=== PATIENT | male | born 1995 | race Caucasian/White ===

== ENCOUNTER 2024-11-15 10:21 | Outpatient (CLI) | payer OTHER, SELFPAY ==
--- NOTE | ~2024-11-15 | PE_ITS ---
EXAMINATION: PET skull to mid thigh DATE: 11/15/2024 12:27 INDICATION: Rectal cancer. TECHNIQUE: Blood glucose level was 87 mg/dL. 10.803 mCi of 18-fluorodeoxyglucose (18-FDG) was adminis tered i.v. Low dose computed tomography (CT) images were acquired from the base of the brain to the p roximal thighs for attenuation correction and anatomic localization. Automated exposure control was e mployed. Dose-length product (DLP) was 1049 mGy-cm. Positron emission tomography (PET) images were ac quired in the same distribution. COMPARISON: None FINDINGS: Head/neck: There are no pathologically enlarged lymph nodes. Chest: There is a nodule in left lung upper lobe with central calcifications without increased activi ty, consistent with old granulomatous disease. No pleural effusion. The heart size is normal. No kalpesh cardial effusion. There is a right internal jugular port with tip in superior vena cava. There is matteo ateral gynecomastia. Abdomen/pelvis/proximal thighs: The liver, gallbladder, spleen, pancreas, and adrenal glands are norm al. There is a 2 mm stone in right kidney. There is mild left hydronephrosis and hydroureter. There i s an end ileostomy on the right. There are no pathologically enlarged lymph nodes. There is no free i ntraperitoneal fluid. There is fat stranding in the presacral region with maximum SUV of 3.7. There i s ankylosis of the sacroiliac joints. IMPRESSION: 1. Fat stranding and mildly increased activity in the presacral region, which may be postsurgical inf lammation/scarring. Metastatic disease cannot be excluded. 2. Mild left hydronephrosis and hydroureter to the level of the presacral fat stranding. Reviewed, dictated and finalized at location [facility] IMPRESSION: 1. Fat stranding and mildly increased activity in the presacral region, which m ay be postsurgical inflammation/scarring. Metastatic disease cannot be excluded . 2. Mild left hydronephrosis and hydroureter to the level of the presacral fat s tranding.
[2024-11-15 10:43] LABS: Glucose Point of Care 87 mg/dl (65-105)
== END 2024-11-15 10:22 | disposition home or self-care (01) ==
LOC: ANHIMG 10:24
PROVIDERS: Visit Provider Internal Medicine Medical Oncology
DX: R93.5 Abnormal findings on diagnostic imaging of other abdominal regions, including retroperitoneum (principal); N13.39 Other hydronephrosis; N13.4 Hydroureter; C20 Malignant neoplasm of rectum
CPT/HCPCS: 78815; A9552

== ENCOUNTER 2025-02-21 08:53 | Outpatient (CLI) | payer OTHER, SELFPAY ==
--- NOTE | ~2025-02-21 | PE_ITS ---
EXAMINATION: PET skull to mid thigh DATE: 02/21/2025 12:53 INDICATION: Rectal cancer TECHNIQUE: Blood glucose level was 87 mg/dL. 8.836 mCi of 18-fluorodeoxyglucose (18-FDG) was administ ered i.v. Low dose computed tomography (CT) images were acquired from the base of the brain to the pr oximal thighs for attenuation correction and anatomic localization. Positron emission tomography (PET ) images were acquired in the same distribution beginning 65 minutes after injection. Images includin g fused PET/CT images were reconstructed in axial, coronal, and sagittal planes. Automated exposure c ontrol technique was employed. The dose-length product was 737.95mGy-cm. COMPARISON: 11/15/2024 FINDINGS: Head/neck: There is symmetric increased activity in the nares, oral cavity, palatine tonsils, laryngeal muscles and ocular muscles without CT correlate, likely physiologic. No pathologically enlarged cervical lymp hadenopathy or suspicious foci of increased FDG uptake in the visualized head or neck. Chest: Right internal jugular central venous port catheter with distal tip at the midsuperior vena cava. Aga in seen is a centrally calcified left upper lobe nodule consistent with sequela of old granulomatous disease. No suspicious pulmonary nodule, pneumonia, pulmonary edema or pleural effusion. Heart size i s normal. No pericardial effusion. Thoracic aorta is normal in caliber. No pathologically enlarged or FDG avid thoracic lymphadenopathy. Mild bilateral gynecomastia. Abdomen/pelvis/proximal thighs: Again seen are postoperative change of prior colectomy with right abdominal and ileostomy. Physiologi c renal accumulation and excretion of FDG activity in the right kidney and in the bladder. There is a symmetric decreased renal uptake at the left kidney with interval progression of moderate left hydrou reteronephrosis without evident excreted activity in the left renal collecting system or ureter. Ther e is a transition point in the left ureter and the posterior left hemipelvis where the ureter extends to a 4.5 x 3.0 cm FDG avid spiculated mass at the rectal fossa with maximal SUV of 15.8. Previously mass measured approximately 3.5 x 2.5 cm with maximal SUV of 6.2. Normal degree and heterogenous kim barbara of increased uptake throughout the liver without radiologic correlate or dominant FDG avid lesion . The gallbladder, pancreas, spleen and bilateral adrenal glands are normal. Mild uptake scattered th roughout the remaining bowels without radiologic correlate, also likely physiologic. No other abnorma l foci of increased FDG uptake or pathologically enlarged lymphadenopathy in the abdomen, pelvis or p roximal thighs. Musculoskeletal: Ankylosis of the bilateral sacroiliac joints. Couple small bone islands at the left femoral head. No suspicious lytic, blastic or abnormally FDG avid bone lesions. There are multiple tiny foci of mild u ptake without radiologic correlate located along the skin surface of the chest, back, buttocks and pr oximal thighs likely related to skin contamination. IMPRESSION: 1. Status post colectomy with right abdominal and ileostomy for reported rectal cancer. 2. Increasing FDG activity associated with an enlarging 4.5 x 2.0 cm spiculated mass at the rectal fo ssa/presacral space which is suspicious for progression of locally recurrent disease. 3. Worsening now moderate left hydroureteronephrosis with transition point in the region of the previ ously noted pelvic mass suggesting secondary obstruction. This appears physiologic significant with a symmetrically decreased FDG uptake and excretion from the left kidney. Reviewed, dictated and finalized at location A. IMPRESSION: 1. Status post colectomy with right abdominal and ileostomy for reported rectal cancer. 2. Increasing FDG activity associated with an enlarging 4.5 x 2.0 cm spiculated mass at the rectal fossa/presacral space which is suspicious for progression o f locally recurrent disease. 3. Worsening now moderate left hydroureteronephrosis with transition point in t he region of the previously noted pelvic mass suggesting secondary obstruction. This appears physiologic significant with asymmetrically decreased FDG uptake and excretion from the left kidney.
--- OUTSIDE RECORDS SUMMARY | 2025-02-21 09:31 | XMS_ITS | Encounter Summary ---
Author Organization [facility] Address [address] [place] [address] Care Team Providers Care Market Risk Specialist Name Role Phone Unavailable Primary Care Provider Unavailabl e Reason for Visit * Reason Comments Follow Up F/U rectal cancer Encounter Details Date Type Department Care Team (Late st Contact Info) Description 02/20/2025 1:15 PM CDT Office Visit [facility] Surgical Spec [place] [address] [place] [address] Shannan Soler MD [address] [place] [address] Rectal cancer (CMS/HCC) (Primary Dx) Social History Tobacco Use Types Packs/Day Years Used Date Smoking Tobacco: Never Smokeless Tobacco: Never Alcohol Use Standard Drinks/Week Comments Not Currently 0 (1 standard drink = 0.6 oz pur e alcohol) Utility Needs Answer Date Recorded In the past 12 months has [employer], [employer], oil, or water [employer] threatened to shut off services in your home? Patient declined 07/05/2024 Feeling Safe Answer Date Recorded Within the last year, have y ou been afraid of your partner or ex-partner? No 07/05/2024 Within the last year, have y ou been humiliated or emotionally abused in other ways by your partner or ex-partner? No Within the last year, have y ou been kicked, hit, slapped, or otherwise physically hurt by your partner or ex-partner? No 07/05/2024 Within the last year, have y ou been raped or forced to have any kind of sexual activity by your partner or ex-partner? No 07/05/2024 Social Connections Answer Date Recorded In a typical week, how many times do you talk on the telephone with family, friends, or neighbors? More than three times a week 07/05/2024 How often do you get togethe r with friends or relatives? Three times a week 07/05/2024 How often do you attend chur or samaritan services? Never 07/05/2024 Do you belong to any clubs o r organizations such as confucianism groups, unions, fraternal or athletic groups, or school groups? No 07/05/2024 How often do you attend meet ings of the clubs or organizations you belong to? Never 07/05/2024 Marital Status Not on file 07/05/2024 Financial Resource Strain Answer Date R ecorded How hard is it for you to pa y for the very basics like food, housing, medical care, and heating? Not hard at all 07/05/2024 Food Insecurity Answer Date Recorded In the past 12 months, have you worried that your food would run out before you had money to buy more? Patient declined 2023 In the past 12 months, did y ou run out of food and didn't have money to buy more? Patient declined 07/05/2024 Transportation Needs Answer Date Record ed In the past 12 months, has l ack of transportation kept you from medical appointments or from getting medications? Patient declined 07/05/2024 In the past 12 months, has l ack of transportation kept you from meetings, work, or from getting things needed for daily living? Patient declined 07/05/2024 Housing Stability Answer Date Recorded In the last 12 months, was t here a time when you were not able to pay the mortgage or rent on time? No 07/05/2024 Number of Times Moved in the Last Year Not on fi le 07/05/2024 At any time in the past 12 m [facility], were you homeless or living in a intermediate (including now)? No 07/05/2024 Feeling Safe Answer Date Recorded Are you in a relationship wi th someone who hurts you emotionally and/or physically? Patient unable to answer 09/01/2024 Food Insecurity Answer Date Recorded Social/Environmental Concerns No concerns Transportation Needs Answer Date Record ed Social/Environmental Concerns No concerns Housing Stability Answer Date Recorded Social/Environmental Concerns No concerns Utility Needs Answer Date Recorded Social/Environmental Concerns No concerns Sex and Gender Information Value Date Recorded Sex Assigned at Not on file Legal Sex Male 10:21 PM CDT Gender Identity Not on file Sexual Orientation Not on file documented as of this encounter Last Filed Vital Signs Vital Sign Reading Time Taken Comments Blood Pressure 140/100 02/20/2025 1:23 PM CDT Pulse - - Temperature - - Respiratory Rate - - Oxygen Saturation - - Inhaled Oxygen Concentration - - Weight 94 kg (207 lb 3.2 oz) 02/20/2025 1:23 PM CDT Height 185.4 cm (6' 1 ) 02/20/2025 1:23 PM CDT Body Mass Index 27.34 02/20/2025 1:23 PM CDT documented in this encounter Progress Notes * Shannan Soler MD - 02/20/2025 1:15 PM CDT Images from the original note were not included. Chief Complaint Patient presents with Follow Up F/U rectal cancer : History of Present Illness: Severiano Ny is a 30 y.o. male is S/P open completion proctectomy with end ileostomy on 07/28/24 in the setting of obstructing perforated rectal cancer from Crohn's disease. The patient hasno complaint of unusual pain at the incisions, and has reported no drainage from the incisions. Appetite and ostomy output are normal. No fevers or chills reported. No leakage from his perineal wound. He has noted intermittent pain where his rectum used to be. This is unrelated to sitting. He has gained 40# since surgery. He has been getting FOLFOX/Avastin chemo with Dr. Reynolds. Pet 11/15/24 at [facility]: No back pain or difficulty urinating. Creatinine normal (0.9) on 11/14/24. He reports normal erections and feels that he is having an orgasm but still has not noted ejaculatecw retrograde ejaculation. Seen by Dr. Torres, cysto negative, expectant management. Unchanged. He saw Dr. Marks who will wait until after chemotherapy to perform ileoscopy. [facility] ctDNA 09/26/24 <0.25% Physical Examination: BP (!) 140/100 (BP Location: Left arm, Patient Position (BP): Sitting, BP Cuff Size: Adult) Ht 6'1 (1.854 m) Wt 94 kg (207 lb 3.2 oz) BMI 27.34 kg/m?? Gen: alert, oriented, NAD. Looks so much better, no longer cachectic. CV: rrr Lungs: non-labored respirations Abdomen- Incisions are healed normally without sign of infection, erythema or subcutaneous fluid. Soft. Non-tender. BS+. No herniations. Ostomy pink, productive of thick loose stool. Perineum: well healed, no drainage. No palpable masses in his perineum. Impression: Doing well following completion proctectomy with end ileostomy. CT showed possible lung mets, pet showed pelvic mary carmen mets initially which resolved by the repeat 11/2024 PET and no pulmonary dz. Pelvic pain concerning for cancer recurrence. Plan: Repeat PET schedule tomorrow at [place]. F/u with Dr. Marks for Crohn's maintenance. F/u with Dr. Reynolds for continued chemotherapy. Met with radiation therapy as well; Dr. Reynolds plans to hold on rads for now unless PET shows worsening disease. Return visit in 3 month(s) documented in this encounter Plan of Treatment Upcoming Encounters Date Type Department Care Team (Late st Contact Info) Description 03/06/2025 9:00 AM CDT Office Visit [facility] Oncology and Hematology - [place] [address] [place] [address] Jose Reynolds MD [address] [place] [address] 05/22/2025 1:15 PM CDT Office Visit [facility] Surgical Spec [place] [address] [place] [address] Shannan Soler MD [address] [facility] [address] [place] [id number] documented as of this encounter Visit Diagnoses Diagnosis Rectal cancer (CMS/HCC)- Primary Malignant neoplasm of rectum documented in this encounter
--- OUTSIDE RECORDS SUMMARY | 2025-02-21 09:31 | XMS_ITS | Data Portability ---
Author Organization [place] - [facility], [facility] Address [address] [place] [id number] Assessment No assessment recorded. Plan of Treatment Reminders Order Date Submit Date Provider Last Modified By Organization Details Last Modified Time Details Appointments None recorded. Lab calprotecti n, stool [email or web address] [place] [address] Lab, [address] [place] [address], [address], 4 17:11:36 CBC w/ auto diff 2023 024 [facility] Lab, [address] [place] [address], [address], 4 12:18:13 CMP, serum or plasma 2023 024 [facility] Lab, [address] [place] [address], [address], 4 12:12:54 rapid flu (A+B) 2023 024 [email or web address] 8 [facility], [address] [place] [address], [address], 4 16:29:26 rapid SARS CoV + SARS CoV 2 Ag, QL IA, respiratory specimen 2023 024 [email or web address] 8 [facility], [address] [place] [address], [phone], 4 16:29:51 calprotecti n, stool 2022 023 [facility] Lab, [address] [place] [address], [address], 3 00:12:10 CBC w/ auto diff 2022 023 [facility] Lab, [address] [place] [address], [address], 14:39:54 CMP, serum or plasma 2022 023 [facility] Lab, [address] [place] [address], [address], 3 14:46:54 C-reactive protein, quantitativ e, serum or plasma [address] Lab, [address] [place] [address], [address], 16:35:17 vitamin D, 25-hydroxy, total, serum 2022 023 [facility] Lab, [address] [place] [address], [address], 3 08:17:17 vitamin B12 + folate, serum or blood [address] Lab, [address] [place] [address], [address], 16:36:18 Referral None recorded. Procedures None recorded. Surgeries None recorded. Imaging None recorded. Medication Orders diphenoxyla te-atropine 2.5 mg-0.025 mg tablet 2023 024 [email or web address] [id number] [place] [address] [place], [address], 4 19:07:04 pantoprazol e 40 mg tablet,lita yed release 2023 024 [facility] [address] [place] [address] [place], [address], 4 10:50:26 Stelara 90 mg/mL subcutaneou s syringe 2022 023 [email or web address] [facility], [address], [place], [address], 4 14:26:13 Patient TargetsNo targets recorded. Patient Instructions Encounter Date Encounter Id Patient Instructions Last Modified By Organization Details Last Modified Time 09/29/[id number] PT WITH IBD-CD X 13 YRS . HE IS S/P TOTAL COLECTOMY WITH ILEORECTAL ANASTAMOSIS. PT IS ON STELARA. X 6 YRS . LAST DOSE WAS X 8 WEEKS . NEED OLD RECORDS . RECOMMEND INFLAMMATORY MARKERS. RESUME STELARA 90 MG SQ EVERY 8 WEEKS . [email or web address] Not available 09/29/2023 13:54:22 11/10/2023 [id number] influenza (flu): care instructions [email or web address] Not available 11/10/2023 16:30:19 11/10/2023 [id number] LOW RESIDUE DIET [email or web address] Not availa ble 11/10/2023 15:59:35 PT WITH ACTIVE IBD-CD INFECTION . CONTINUE SKYRIZI FOR NOW . GO TO [facility] CLIN[facility] TO BE EVALUATED FOR COVID . PT WAS ADVISED IF HE HAS COVID . SKYRIZI WOULD BE DELAYED . F/U IN 3 MTHS. [email or web address] Not available 11/10/2023 16:00:59 03/29/2024 [id number] PT WITH IBD-CD O F BOTH LARGE AND SMALL INTESTINE. PT IS ON SKYRIZI. STOOL CALPROTECTIN WAS 468 IN DECEMBER AFTER HIS INDUCTION OF SKYRIZI. RECOMMEND RPEAT THIS NOW. IF STILL HIGH , MAY HAVE TO CHANGE TO RINVOQ. IT NOEMAL , THEN DIARRHEA IS B/C F HIS ANATOMY. PT WOULD BENEFIT FROM IMODIUM 2 TABS BID NEEDED TO SLOW HIM DOWN. FOR ABD PAIN TRY PANTOPRAZOLE 40 MG /D. F/U IN 2 WEEKS . [email or web address] Not available 03/29/2024 10:49:41 Reason for Referral None Reported. Results Created Date Observation Date Name Description Value Unit Range Abnormal Flag Note LastModifiedBy Organization Detail LastModifiedTime 11/09/29/2023 CBC WITH AUTOM ATED DIFF WBC 6.7 10 4.2-9. 1 Not Available [facility] - Lab [address] [place] [address], [address], 09/29/2023 14:39:54 09/29/2009/29/2023 CBC WITH AUTOM ATED DIFF RBC 5.42 10 4.60-6 .08 Not Available [facility] - Lab [address] [place] [address], [address], 09/29/2023 14:39:54 09/29/2009/29/2023 CBC WITH AUTOM ATED DIFF HGB 14.2 g/dL 13.7-1 7.5 Not Available [facility] - Lab [address] [place] [address], [address], 09/29/2023 14:39:54 09/29/20 23 09/29/2023 CBC WITH AUTOM ATED DIFF HCT 44.9 % 40.1-5 1.0 Not Available [facility] Lab [address] [place] [address], 968[address], 09/29/2023 14:39:54 09/29/20 23 09/29/2023 CBC WITH AUTOM ATED DIFF MCV 82.8 fL 80.0-9 7.0 Not Available [facility] Lab [address] [place] [address], 485[address], 09/29/2023 14:39:54 09/29/2009/29/2023 CBC WITH AUTOM ATED DIFF MCH 26.2 pg 29.0-3 4.5 low Not Available [facility] Lab [address] [place] [address], 72098, 09/29/2023 14:39:54 09/29/20 23 09/29/2023 CBC WITH AUTOM ATED DIFF MCHC 31.6 g/dL 32.5-3 5.5 low Not Available [facility] - Lab [address] [place] [address], [address]98[address], 09/29/2023 14:39:54 09/29/20 23 09/29/2023 CBC WITH AUTOM ATED DIFF RDW 13.6 11.5-1 4.5 Not Available [facility] Lab [address] [place] [address], 575[address], 09/29/2023 14:39:54 09/29/2009/29/2023 CBC WITH AUTOM ATED DIFF platelet 291 10 160-34 0 Not Available [facility] Lab [address] [place] [address], 80[address], 09/29/2023 14:39:54 09/29/2009/29/2023 CBC WITH AUTOM ATED DIFF MPV 8.40 fL 9.0-12 .4 low Not Available [facility] Lab [address] [place] [address], [address], 09/29/2023 14:39:54 09/29/2009/29/2023 CBC WITH AUTOM ATED DIFF uri% 67.5 % 34.0-6 7.9 Not Available [facility] [address] [place] [address], 89449, 09/29/2023 14:39:54 09/29/2009/29/2023 CBC WITH AUTOM ATED DIFF lym% 22.8 % 22-53 Not Available [facility] [address] [place] [address], 76897, 09/29/2023 14:39:54 09/29/2009/29/2023 CBC WITH AUTOM ATED DIFF mon% 4.20 % 5-12 low Not Available [facility] Lab [address] [place] [address], 28158, 09/29/2023 14:39:54 09/29/20 23 09/29/2023 CBC WITH AUTOM ATED DIFF eos% 5.10 % 0-7 Not Available [facility] [address] [place] [address], 03557, 09/29/2023 14:39:54 09/29/20 23 09/29/2023 CBC WITH AUTOM ATED DIFF bas% 0.30 % 0-2 Not Available [facility] Lab [address] [place] [address] [place], [address], 09/29/2023 14:39:54 09/29/20 23 09/29/2023 CBC WITH AUTOM ATED DIFF Ig% 0.1 0-1.0 Not Available [address], [place], [address], 09/29/2023 14:39:54 09/29/20 23 09/29/2023 CBC WITH AUTOM ATED DIFF uri# 4.54 10 1.5-7 Not Available [facility] [address] [place] [address], [place], [address], 09/29/2023 14:39:54 09/29/2009/29/2023 CBC WITH AUTOM ATED DIFF lym# 1.5 10 1.18-4 .00 Not Available [facility] Lab [address] [place] [address], 287[address], 09/29/2023 14:39:54 09/29/20 23 09/29/2023 CBC WITH AUTOM ATED DIFF mon# 0.3 10 0.00-0 .90 Not Available [address], [address], 09/29/2023 14:39:54 09/29/20 23 09/29/2023 CBC WITH AUTOM ATED DIFF eos# 0.3 10 0.00-0 .60 Not Available [address], [address], 09/29/2023 14:39:54 09/29/20 23 09/29/2023 CBC WITH AUTOM ATED DIFF bas# 0.0 10 0.00-0 .10 Not Available [facility] [address] [place] [address], 58[address], 09/29/2023 14:39:54 09/29/20 23 09/29/2023 CBC WITH AUTOM ATED DIFF Ig# 0.01 0-0.05 Not Available [facility] [address] [place] [address], 93631, 09/29/2023 14:39:54 09/29/20 23 09/29/2023 COMP METAB OLIC PNL glucose 103 mg/dL 74-106 Not Available [facility] Lab [address] [place] [address], 80464, 09/29/2023 14:46:54 09/29/20 23 09/29/2023 COMP METAB OLIC PNL BUN 10 mg/dL 7-18 Not Available [facility] Lab [address] [place] [address], [address]22, 09/29/2023 14:46:54 09/29/20 23 09/29/2023 COMP METAB OLIC PNL sodium 135 mmol/ L 136-14 5 low Not Available [facility] [address] [place] [address], 09960, 09/29/2023 14:46:54 09/29/2009/29/2023 COMP METAB OLIC PNL K 4.1 mmol/ L 3.5-5. 1 Not Available [facility] [address] [place] [address], 68316, 09/29/2023 14:46:54 09/29/20 23 09/29/2023 COMP METAB OLIC PNL chloride 100 mmol/ L 98-107 Not Available [facility] [address] [place] [address], 52198, 09/29/2023 14:46:54 09/29/20 23 09/29/2023 COMP METAB OLIC PNL tot CO2 31 mmol/ L 21.0-3 2.0 Not Available [facility] [address] [place] [address], 64324, 09/29/2023 14:46:54 09/29/20 23 09/29/2023 COMP METAB OLIC PNL calcium 9.5 mg/dL 8.5-10 .1 Not Available [facility] [address] [place] [address], 228[address], 09/29/2023 14:46:54 09/29/20 23 09/29/2023 COMP METAB OLIC PNL creatinine 0.9 mg/dL 0.8-1. 3 Not Available [facility] [address] [place] [address], 66709, 09/29/2023 14:46:54 09/29/20 23 09/29/2023 COMP METAB OLIC PNL alkaline phos 75 U/L 46-116 Not Available [facility] Lab [address] [place] [address], 11510, 09/29/2023 14:46:54 09/29/2009/29/2023 COMP METAB OLIC PNL AST (SGOT) 13 U/L 15-37 low Not Available [facility] [address] [place] [address], 98882, 09/29/2023 14:46:54 09/29/20 23 09/29/2023 COMP METAB OLIC PNL albumin 3.9 g/dL 3.4-5. 0 Not Available [facility] [address] [place] [address], 98030, 09/29/2023 14:46:54 09/29/20 23 09/29/2023 COMP METAB OLIC PNL globulin 4.6 2.0-4. 8 Not Available [facility] [address] [place] [address], 58805, 09/29/2023 14:46:54 09/29/2009/29/2023 COMP METAB OLIC PNL total protein 8.5 g/dL 6.4-8. 2 high Not Available [facility] [address] [place] [address], 29838, 09/29/2023 14:46:54 09/29/20 23 09/29/2023 COMP METAB OLIC PNL A/G ratio 0.8 0.7-3. 5 Not Available [facility] [address] [place] [address], 35291, 09/29/2023 14:46:54 09/29/20 23 09/29/2023 COMP METAB OLIC PNL ALT (SGPT) 14 U/L 16-63 low Not Available [facility] Lab [address] [place], [address], 09/29/2023 14:46:54 09/29/20 23 09/29/2023 COMP METAB OLIC PNL total bilirubin 0.8 mg/dL 0.2-1. 1 Not Available [facility] Lab [address] [place], [address], 09/29/2023 14:46:54 09/29/20 23 09/29/2023 COMP METAB OLIC PNL GFR >60 60- Refer ence Range : [place] ge GFR Healt hy Adult : >60 mL/mi n/1.7 3 m2 Chron ic Kidne y Disea se: 15-60 mL/mi n/1.7 3 m2 Kidne y Failu re: <15/m L/min /1.73 m2 www.n iddk. nih.g ov MDRD study equat ion hasn' t been valid ated in child nikhil <18 yrs of age, pregn ant women , the elder ly >85 yrs of age, or in some racia l or ethni c subgr oups, suc as Hispa nics. Outsi de the valid ated jose a eters , estim ated GFR is less accur ate requi ring clini nilson judgm ent on a case by case basis . Clini nilson inter preta tion for other races and ages must be made by the clini marlon . Futhe rmore , any of th e limit ation s with the use of serum creat inine relat ed to nutri rogerio l statu s o r medic ation usage hasn' t accou nted for the MDRD Study equat ion. For perso ns < 18 yrs of age, a pedia tric GFR calcu lator can be locat ed on the [facility] websi te: https ://lazarus childress.o evans/pr radhaess ional s/kdo qi/gf r_cal culat or Not Available [facility] Lab [address] [place], [address], 09/29/2023 14:46:54 09/29/20 23 09/29/2023 COMP METAB OLIC PNL agap 8.0 mmol/ L 5.0-19 .0 Not Available [facility] [address] [place] [address], 16488, 09/29/2023 14:46:54 09/29/20 23 09/29/2023 C-MYRA CTIVE PROTE IN QUANT CRP quantatative 1.2 mg/dL 0.5-0. 9 high Not Available [facility] [address] [place] [address], 75434, 09/29/2023 14:46:59 09/29/20 23 09/30/2023 VITAM IN D, 25-HY DROXY vitamin D, 25-hydroxy 8.4 NG/mL 30.0-1 00.0 low Vitam in D defic iency has been defin ed by the Insti tute of Medic ine and an Endoc rine Socie ty pract ice guide line as a level of serum 25-OH vitam in D less than 20 ng/mL (1,2) . The Endoc rine Socie ty went on to furth er defin e vitam in D insuf ficie ncy as a level betwe en 21 and 29 ng/mL (2). 1. IOM (Inst itute of Medic ine). 2009. Dieta ry refer ence intak es for calci um and D. Mike wilson [place]: The [facility] . 2. Hector haskins MF, Precious becerra [place], Edi off-F errar i CAUSEY, et al. Evalu ation , treat ment, and preve ntion of vitam in D defic iency : an Endoc rine Socie ty clini nilson pract ice guide line. JCEM. 2010; 96(7) :1911 -30. Perfo rmed at: CB - [facility] [address] [place] [address] Count includes the [facility] Lab Direc tor: Clem gil PhD, Phone : [phone] Not Available [facility] Lab [address] [place] [address], 18717, 09/30/2023 08:17:17 09/29/20 23 09/30/2023 FOLAT E (FOLI C ACID) , SERUM folate (folic acid), serum 12.3 NG/mL >3.0 . A serum folat e milton ntrat ion of less than 3.1 ng/mL is consi dered to repre sent clini nilson defic iency . Perfo rmed at: [address] [address] Lab Direc tor: Clem gil PhD, Phone : [phone] Not Available [address], [address], 09/30/2023 09:13:09 09/29/20 23 09/30/2023 VITAM IN B12 vitamin B12 1985 pg/mL 232-12 45 high Perfo rmed at: [address] [address] Lab Direc tor: Clem gil PhD, Phone : [phone] Not Available [address], [address], 09/30/2023 13:09:06 10/02/20 23 10/06/2023 QUANT IFERO N-TB GOLD PLUS quantiferon incubation Commen t Incub ation perfo rmed. Not Available [address], [address], 10/06/2023 08:17:30 10/02/20 23 10/06/2023 QUANT IFERO N-TB GOLD PLUS quantiferon criteria Commen t . Quant iFERO N-TB Gold Plus is a quali tativ e indir ect test for M tuber culos is infec tion (incl uding disea se) and is inten ded for use in conju nctio n with risk asses sment , radio graph y, and other medic al and diagn ostic evalu ation s. The Quant iFERO N-TB Gold Plus resul t is deter mined by subtr actin g the Nil value from eithe r TB antig en (Ag) value . The Mitog en tube serve s as a contr ol for the test. Not Available [facility] [address] [place] [address], [address], 10/06/2023 08:17:30 10/02/20 23 10/06/2023 QUANT IFERO N-TB GOLD PLUS quantiferon TB1 Ag value 0.01 IU/mL Not Available [address], [address], 10/06/2023 08:17:30 10/02/20 23 10/06/2023 QUANT IFERO N-TB GOLD PLUS quantiferon TB2 Ag value 0.00 IU/mL Not Available [address], [address], 10/06/2023 08:17:30 10/02/20 23 10/06/2023 QUANT IFERO N-TB GOLD PLUS quantiferon nil value 0.00 IU/mL Not Available [facility] Lab [address] [place] [address], 14963, 10/06/2023 08:17:30 10/02/2010/06/2023 QUANT IFERO N-TB GOLD PLUS quantiferon mitogen value >10.00 IU/mL [facility] [address] [place] [address] Lab Direc tor: Clem gil PhD, Phone : [phone] Not Available [address], [address], 10/06/2023 08:17:30 10/02/20 23 10/06/2023 QUANT IFERO N-TB GOLD PLUS quantiferon- TB gold plus Negati ve negati ve No respo nse to M tuber culos is antig ens detec cleo. Infec tion with M tuber culos is is unlik roshan, but high risk indiv idual s shoul d be consi dered for addit ional testi ng (ATS/ IDSA/ CDC Clini nilson Pract ice Guide lines , 2017) . The refer ence range is an Antig en minus Nil resul t of <0.35 IU/mL . Chemi lumin escen ce immun oassa y metho dolog y Perfo rmed at: CB - [facility] [address] [facility], [place] [address] Lab Direc tor: Clem gil PhD, Phone : [phone] Not Available [address], [address], 10/06/2023 08:17:30 11/10/19 24 11/10/2023 rapid SARS CoV + SARS CoV 2 Ag, QL IA, respi rator y speci men id now covid 19 negati ve negati ve Not Available [address], [address], 11/10/2023 16:23:23 11/10/19 24 11/10/2023 rapid flu (A+B) influenza A positi ve negati ve abnormal Not Available [address], [address], 11/10/2023 16:23:25 11/10/19 24 11/10/2023 rapid flu (A+B) influenza B negati ve negati ve normal Not Available [address], [address], 11/10/2023 16:23:25 11/10/19 24 11/10/2023 rapid flu (A+B) control accept able accept able Not Available [address], [address], 11/10/2023 16:23:25 01/19/20 24 01/19/2024 SED RATE AUTOM ATED sed rate 11 mm/HR 0-15 Not Available [address], [address], 01/19/2024 19:04:54 03/29/20 24 03/29/2024 COMP METAB OLIC PNL glucose 109 mg/dL 74-100 high Not Available [facility] [address] [place] [address], 456[address], 03/29/2024 12:12:54 03/29/20 24 03/29/2024 COMP METAB OLIC PNL BUN 14 mg/dL 9-20 Not Available [facility] [address] [place] [address], 85602, 03/29/2024 12:12:54 03/29/20 24 03/29/2024 COMP METAB OLIC PNL sodium 137 mmol/ L 136-14 5 Not Available [facility] [address] [place] [address], 30585, 03/29/2024 12:12:54 03/29/20 24 03/29/2024 COMP METAB OLIC PNL K 4.2 mmol/ L 3.5-5. 1 Not Available [facility] [address] [place] [address], 03322, 03/29/2024 12:12:54 03/29/20 24 03/29/2024 COMP METAB OLIC PNL chloride 101 mmol/ L 98-107 Not Available [facility] [address] [place] [address], 98550, 03/29/2024 12:12:54 03/29/20 24 03/29/2024 COMP METAB OLIC PNL tot CO2 29 mmol/ L 22-30 Not Available [facility] [address] [place] [address], 37234, 03/29/2024 12:12:54 03/29/20 24 03/29/2024 COMP METAB OLIC PNL calcium 9.4 mg/dL 8.6-10 .3 Not Available [facility] [address] [place] [address], 06202, 03/29/2024 12:12:54 03/29/20 24 03/29/2024 COMP METAB OLIC PNL creatinine 1.1 mg/dL 0.66-1 .25 Not Available [facility] [address] [place] [address], 697[address], 03/29/2024 12:12:54 03/29/20 24 03/29/2024 COMP METAB OLIC PNL alkaline phos 66 U/L 38-126 Not Available [address], [place], [address], 03/29/2024 12:12:54 03/29/20 24 03/29/2024 COMP METAB OLIC PNL AST (SGOT) 18 U/L 17-59 Not Available [address], [place], [address], 03/29/2024 12:12:54 03/29/20 24 03/29/2024 COMP METAB OLIC PNL albumin 4.3 g/dL 3.3-5. 0 Not Available [address], [place], [address], 03/29/2024 12:12:54 03/29/20 24 03/29/2024 COMP METAB OLIC PNL globulin 3.7 2.0-4. 8 Not Available [address], [place], [address], 03/29/2024 12:12:54 03/29/20 24 03/29/2024 COMP METAB OLIC PNL total protein 8.0 g/dL 6.3-8. 2 Not Available [address], [place], [address], 03/29/2024 12:12:54 03/29/20 24 03/29/2024 COMP METAB OLIC PNL A/G ratio 1.2 0.7-3. 5 Not Available [address], [place], [address], 03/29/2024 12:12:54 03/29/20 24 03/29/2024 COMP METAB OLIC PNL ALT (SGPT) 19 U/L 0-50 Not Available [address], [place], [address], 03/29/2024 12:12:54 03/29/20 24 03/29/2024 COMP METAB OLIC PNL total bilirubin 0.8 mg/dL 0.2-1. 3 Not Available [facility] [address] [place] [address], 97234, 03/29/2024 12:12:54 03/29/20 24 03/29/2024 COMP METAB OLIC PNL GFR >60 60- Refer ence Range : [place] ge GFR Healt hy Adult : >60 mL/mi n/1.7 3 m2 Chron ic Kidne y Disea se: 15-60 mL/mi n/1.7 3 m2 Kidne y Failu re: <15/m L/min /1.73 m2 www.n iddk. nih.g ov MDRD study equat ion hasn' t been valid ated in child nikhil <18 yrs of age, pregn ant women , the elder ly >85 yrs of age, or in some racia l or ethni c subgr oups, suc as Hispa nics. Outsi de the valid ated jose a eters , estim ated GFR is less accur ate requi ring clini nilson judgm ent on a case by case basis . Clini nilson inter preta tion for other races and ages must be made by the clini marlon . Futhe rmore , any of th e limit ation s with the use of serum creat inine relat ed to nutri rogerio l statu s o r medic ation usage hasn' t accou nted for the MDRD Study equat ion. For perso ns < 18 yrs of age, a pedia tric GFR calcu lator can be locat ed on the F websi te: https ://lazarus w.kid monroe.o rg/pr ofess ional s/kdo qi/gf r_cal culat or Not Available [facility] [address] [place] [address], [address], 03/29/2024 12:12:54 03/29/20 24 03/29/2024 COMP METAB OLIC PNL agap 7.9 mmol/ L 5.0-19 .0 Not Available [facility] [address] [place] [address], [place], [address], 03/29/2024 12:12:54 03/29/20 24 03/29/2024 CBC WITH AUTOM ATED DIFF WBC 5.8 10 4.2-9. 1 Not Available [facility] [address] [place] [address] [place], [address], 03/29/2024 12:36:19 03/29/20 24 03/29/2024 CBC WITH AUTOM ATED DIFF RBC 5.42 10 4.60-6 .08 Not Available [facility] [address] [place] [address] [place], [address], 03/29/2024 12:36:19 03/29/2003/29/2024 CBC WITH AUTOM ATED DIFF HGB 12.9 g/dL 13.7-1 7.5 low Not Available [facility] [address] [place] [address], [address], 03/29/2024 12:36:19 03/29/20 24 03/29/2024 CBC WITH AUTOM ATED DIFF HCT 41.0 % 40.1-5 1.0 Not Available [facility] [address] [place] [address], 73766, 03/29/2024 12:36:19 03/29/20 24 03/29/2024 CBC WITH AUTOM ATED DIFF MCV 75.6 fL 80.0-9 7.0 low Not Available [facility] [address] [place] [address], 32991, 03/29/2024 12:36:19 03/29/20 24 03/29/2024 CBC WITH AUTOM ATED DIFF MCH 23.8 pg 29.0-3 4.5 low Not Available [facility] [address] [place] [address], 05168, 03/29/2024 12:36:19 03/29/20 24 03/29/2024 CBC WITH AUTOM ATED DIFF MCHC 31.5 g/dL 32.5-3 5.5 low Not Available [facility] [address] [place] [address], 426[address], 03/29/2024 12:36:19 03/29/20 24 03/29/2024 CBC WITH AUTOM ATED DIFF RDW 13.2 11.5-1 4.5 Not Available [facility] [address] [place] [address], 789[address], 03/29/2024 12:36:19 03/29/2003/29/2024 CBC WITH AUTOM ATED DIFF platelet 266 10 160-34 0 Not Available [facility] [address] [place] [address], 94859, 03/29/2024 12:36:19 03/29/2003/29/2024 CBC WITH AUTOM ATED DIFF MPV 8.60 fL 9.0-12 .4 low Not Available [facility] [address] [place] [address], 37086, 03/29/2024 12:36:19 03/29/20 24 03/29/2024 CBC WITH AUTOM ATED DIFF uri% 64.1 % 34.0-6 7.9 Not Available [facility] [address] [place] [address], 747[address], 03/29/2024 12:36:19 03/29/20 24 03/29/2024 CBC WITH AUTOM ATED DIFF lym% 23.7 % 22-53 Not Available [facility] [address] [place] [address], [id number], 03/29/2024 12:36:19 03/29/2003/29/2024 CBC WITH AUTOM ATED DIFF mon% 6.70 % 5-12 Not Available [facility] [address] [place] [address], [id number], 03/29/2024 12:36:19 03/29/2003/29/2024 CBC WITH AUTOM ATED DIFF eos% 5.00 % 0-7 Not Available [facility] [address] [place] [address], [id number], 03/29/2024 12:36:19 03/29/20 24 03/29/2024 CBC WITH AUTOM ATED DIFF bas% 0.30 % 0-2 Not Available [facility] [address] [place] [address], [id number], 03/29/2024 12:36:19 03/29/20 24 03/29/2024 CBC WITH AUTOM ATED DIFF Ig% 0.2 0-1.0 Not Available [address], [address], 03/29/2024 12:36:19 03/29/20 24 03/29/2024 CBC WITH AUTOM ATED DIFF uri# 3.70 10 1.5-7 Not Available [address], [place], [address], 03/29/2024 12:36:19 03/29/20 24 03/29/2024 CBC WITH AUTOM ATED DIFF lym# 1.4 10 1.18-4 .00 Not Available [address], [place], [address], 03/29/2024 12:36:19 03/29/20 24 03/29/2024 CBC WITH AUTOM ATED DIFF mon# 0.4 10 0.00-0 .90 Not Available [address], [place], [address], 03/29/2024 12:36:19 03/29/20 24 03/29/2024 CBC WITH AUTOM ATED DIFF eos# 0.3 10 0.00-0 .60 Not Available [address], [place], [address], 03/29/2024 12:36:19 03/29/20 24 03/29/2024 CBC WITH AUTOM ATED DIFF bas# 0.0 10 0.00-0 .10 Not Available [address], [place], [address], 03/29/2024 12:36:19 03/29/20 24 03/29/2024 CBC WITH AUTOM ATED DIFF Ig# 0.01 0-0.05 Not Available [facility] [address] [place] [address], [address], 03/29/2024 12:36:19 10/23/20 23 colon oscop y delmy almonte (PROC ) No observ ation record ed. [email or web address] [facility] [address] [place] [address], [address], 10/23/2023 11:37:07 11/03/19 24 11/03/2023 CT, abdom en + pelvi s, w/ contr ast [address] [address] [phone] AILEENIN G REPORT Name: DONNA DIETRICH Room #: : 1994 Accoun t #: [id number] Bed #: Age: 28 Years Patien t Type: Outpat ient Order Date/T pacheco: 2023 09:12: 26 AM Sex: M Access ion#: Exam Descri ption: Exam Reason : [id number] CT ABDOME N PELVIS W K9130 Postpr ocedur al int Dictat ed By: Gilda nicholasCaballero Teresita ch Physic miguel: FREDDY PLUMMER Attend ing Physic miguel: FREDDY PLUMMER Primar y Care Physic miguel: NO, PRIMAR Y CARE EXAMIN ATION: CT ABDOME N PELVIS W CLINIC AL HISTOR Y: 28 years Male,K 9130 Postpr ocedur al intest inal obstru ction COMPAR ALEXIS: There is no prior simila r study availa ble for correl ation. TECHNI QUE: Axial imagin g and 2-D reform atting perfor med from the lung bases throug h the pelvis follow ing the admini strati on of IV contra st and oral contra st. This exam was perfor med accord ing to our depart mental dose-o ptimiz ation progra m, which includ es automa cleo exposu re contro l, adjust ment of the mA and/or kV accord ing to patien t size and/or use of iterat reggie recons tructi on techni que. IV CONTRA ST: 100 mils Isovue 370 TOTAL DLP: 2635.5 mGy-cm FINDIN GS: Visual ized lung bases are negati ve for mass, pleura l fluid or active infilt rate. No perica rdial effusi on or retroc rural lympha denopa thy. Heart size is within normal limits . PAGE 1 OF 2 IMAGIN G REPORT Name: ODNNA DIETRICH Room #: : 1994 Accoun t #: [id number] Bed #: Age: 28 Years Patien t Type: Outpat ient Order Date/T pacheco: 2023 09:12: 26 AM Sex: M Liver, and pancre as demons trate a normal contra st enhanc ed appear ance. Spleno megaly 15 cm The gallbl adder is normal The aorta is normal No ascite s, or free intrap eriton eal gas. Diffus e minor promin ence of bilate ral inguin al, retrop eriton eal, and mesent julia nodes, a nonspe cific findin g, Stomac h is grossl y unrema rkable . Prior colect meir. Bowel loops are negati ve for obstru ction. Oral contra st extend s to the rectal vault. . Inguin al region s are unrema rkable . No ventra l hernia s. Abdomi nal wall postop erativ e change s Adrena l glands are normal . The kidney s functi on bilate rally and are normal in positi on withou t hydron ephros is, mass or nephro lithia sis . The perine phric region s are unrema rkable . Ureter s as well as urinar y bladde r are grossl y unrema rkable and negati ve for obstru ction or urolit hiasis . Prosta te and semina l vesicl es are unrema rkable . No gross bone destru ction. Minor degene rative change s IMPRES NBA: 1. No acute findin g. 2. Prior colect meir. 3. Spleno megaly . 4. Diffus e minor promin ence of bilate ral inguin al, retrop eriton eal, and mesent julia nodes, a nonspe cific findin g. 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 [facility] ([facility]) [address] [place], [address], 04/22/2024 11:30:42 Result Notes None recorded. Problems Name Problem SNOMED Code Status Onset Date Resolution Date Notes Provider Name and Address Organization Details Recorded Time Crohn's disease 85005652 Active Sandra Samuel null, [facility] 3 15:49:02 Exacerbation of Crohn's disease of small intestine 906518594 Active 2022 Aimee Reece null, [facility] 3 14:32:05 Inflammatory bowel disease 34158333 Active 2022 Aimee Reece null, [facility] 3 14:50:44 Stricture of colon 6204380 Active 2022 Aimee Reece null, [facility] 3 14:50:58 Anastomotic stricture of small intestine 074050921 Active 2022 Aimee Reece null, [facility] 3 14:52:50 Crohn's disease of small intestine 81679549 Active 2023 Roseann Flores MD [address] [place] [address], [address] , [facility] 4 14:24:27 Upper respiratory infection 10146214 Active 2023 Roseann Flores MD [address] [place] [address], [address] , [facility] 4 15:59:12 Cough 23255599 Active 2023 Divine Mckeon null, [facility] 4 16:23:17 Influenza caused by Influenza A virus 213726312 Active 2023 Nuvia Garcia NP [address] [place] [address], [address] , [facility] 4 16:28:56 Epigastric pain 07638228 Active 2023 Roseann Flores MD [address] [place] [address], [address] , [facility] 4 10:46:17 Diarrhea 42461698 Active 2023 Destiny Thompson MD [address] [place] [address], [address] , [facility] 4 14:57:54 Problem Notes None recorded. Procedures Surgical History Date Name Laterality Status Provider Name and Address Organization Details Recorded Time 3 SMALL INTESTINAL ENDOSCOPY, ENTEROSCOPY BEYOND SECOND PORTION OF DUODENUM, NOT INCLUDING ILEUM, WITH BIOPSY (SURG) [facility] 10:08:15 4 procedure on large intestine completed Sandraелена Samuel [facility] 09/03/2023 15:55:10 Imaging Results Imaging Date Name Status LastModified by Organiz ation Details LastModified Time 10/23/2023 colonoscopy screening (PROC) completed [email or web address] (Central Scheduling) [address] [place], [address], 10/23/2023 11:37:07 11/03/2023 CT, abdomen + pelvis, w/ contrast completed [address] [facility] [address] [place], [address], 11/05/2023 16:05:39 04/22/2024 colonoscopy procedure (PROC) completed [email or web address] (Central Scheduling) [address] [place], [address], 04/22/2024 11:30:42 Procedure Notes None recorded. Medical Equipment None Reported. Allergies Allergen ID Allergen Name Allergen Category Reaction Reaction Severity Criticality Documentation Date Start Date Code Code System Note Provider Name and Address Organization Details Recorded Time 17700302 amoxicill in medicatio n rash Not available Not available 09/03/2023 723 RxNorm Sandra Lizzie [facility] 15:47:02 Medications Name Sig Start Date Stop Date Status Note LastModified by Organization Details LastModified Time prednisone 10 mg tablet TAKE 6 TABLETS BY MOUTH DAILY FOR 7 DAYS, 1 FIVE TIMES A DAY FOR 7 DAYS, 1 FOUR TIMES A DAY FOR 7 DAYS, 1 THREE TIMES A DAY FOR 7 DAYS, 1 TWICE A DAY FOR 7 DAYS, THEN 1 DAILY FOR 7 DAYS 11/10 completed Not Available Not Available Not Available diphenoxyla te-atropine 2.5 mg-0.025 mg tablet 1-2 tabs daily 4 times daily as needed for diarrhea active Not Available Not Available No t Available triamcinolo ne acetonide 0.1 % topical cream APPLY A THIN LAYER TO THE AFFECTED AREA(S) BY TOPICAL ROUTE 2 TIMES PER DAY 03/29 completed Not Available Not Available Not Available oxycodone-a cetaminophe n 5 mg-325 mg tablet TAKE 1 TABLET BY MOUTH EVERY 4-6 HOURS NEEDED FOR PAIN 11/10 completed Not Available Not Available Not Available pantoprazol e 40 mg tablet,lita yed release TAKE 1 TABLET BY MOUTH EVERY DAY BEFORE MEAL FOR 90 DAYS, FOR EPIGASTRI C PAIN. active Not Available Not Available No t Available Stelara 90 mg/mL subcutaneou s syringe INJECT 90 ML EVERY 2 MONTHS 11/10 completed Not Available Not Available Not Available Skyrizi 360 mg/2.4 mL (150 mg/mL) subcutaneou s wearable injector INJECT 360 MG EVERY 2 MONTHS BY SUBCUTANE OUS ROUTE active Not Available Not Available No t Available Skyrizi 60 mg/mL intravenous solution Inject 600 mg every 4 weeks by intraveno us route. 03/29 completed Not Available Not Available Not Available Vitals Date Recorded Body weight Body mass index (BMI) Body height Heart rate Oxygen saturation Oxygen saturation in Arterial blood by Pulse oximetry Body temperature Systolic blood pressure Diastolic blood pressure Provider Name and Address Organization Details Last Updated DateTime 3 531475. 88 g 32.5 kg/m2 185.42 cm 63 /min 98 % 98 % 98.4 [degF] 108 mm[Hg] 78 mm[Hg] Yeimi Proctor [facility] 3 12:17:52 Date Recorded Body height Body mass index (BMI) Body weight Pain severity - 0-10 verbal numeric rating [Score] - Reported Heart rate Body temperature Oxygen saturation Oxygen saturation in Arterial blood by Pulse oximetry Systolic blood pressure Diastolic blood pressure Provider Name and Address Organization Details Last Updated DateTime 4 185.42 cm 31.1 kg/m2 129457. 8 g 0 95 /min 97.8 [degF] 95 % 95 % 132 mm[Hg] 84 mm[Hg] Isis Barron [facility] 4 14:28:21 Date Recorded Body height Body mass index (BMI) Body weight Body temperature Heart rate Oxygen saturation Oxygen saturation in Arterial blood by Pulse oximetry Respiratory rate Pain severity - 0-10 verbal numeric rating [Score] - Reported Systolic blood pressure Diastolic blood pressure Provider Name and Address Organization Details Last Updated DateTime 4 185.42 cm 31.1 kg/m2 391574. 8 g 97.6 [degF] 86 /min 97 % 97 % 16 /min 3 124 mm[Hg] 88 mm[Hg] Divine Linda [facility] 4 16:17:13 Date Recorded Body height Body mass index (BMI) Body weight Body temperature Heart rate Respiratory rate Oxygen saturation Oxygen saturation in Arterial blood by Pulse oximetry Pain severity - 0-10 verbal numeric rating [Score] - Reported Systolic blood pressure Diastolic blood pressure Provider Name and Address Organization Details Last Updated DateTime 4 185.42 cm 29.7 kg/m2 966631. 28 g 96.8 [degF] 71 /min 18 /min 98 % 98 % 0 114 mm[Hg] 64 mm[Hg] Margo winters [facility] 4 10:07:20 Date Recorded Body height Respiratory rate Body mass index (BMI) Body weight Body temperature Heart rate Oxygen saturation Oxygen saturation in Arterial blood by Pulse oximetry Pain severity - 0-10 verbal numeric rating [Score] - Reported Systolic blood pressure Diastolic blood pressure Provider Name and Address Organization Details Last Updated DateTime 4 185.42 cm 17 /min 29.8 kg/m2 028513. 88 g 98.6 [degF] 70 /min 97 % 97 % 7 130 mm[Hg] 80 mm[Hg] Richie Reynold [facility] 4 19:12:39 Social History Question Answer Notes LastModified by Organizat ion Details LastModified Time Tobacco Smoking Status Never Smoker Sandra coronel [facility] 09/03/2023 15:52:13 Do You Have An Advance Directive? No [email or web address] Information n ot available 09/03/2023 What Is Your Level Of Alcohol Consumption? None [email or web address] Information not available 09/03/2023 What Is Your Level Of Caffeine Consumption? Moderate Information not available 11/10/2023 In The 14 Days Before Symptom Onset, Have You Had Close Contact With A Laboratory-confirm ed COVID-19 While That Case Was Ill? No [email or web address] Information n ot available 09/03/2023 In The 14 Days Before Symptom Onset, Have You Had Close Contact With A Person Who Is Under Investigation For COVID-19 While That Person Was Ill? No Information not available 09/03/2023 Are There Any Guns Present In Your Home? No [email or web address] Information not available 09/03/2023 Are You In An Abusive/frightenin g Relationship? No Information not available 09/29/2023 Do You Feel Safe At Home Yes Information not available 09/29/2023 Do You Feel Hopeless Or Helpless No Information not available 09/29/2023 Have You Had Thoughts Of Suicide? No Information not available 09/29/2023 Are You Having Any Suicidal Thoughts Now? No Information not available 09/29/2023 Have You Previously Attempted Suicide? No Information n ot available 09/29/2023 Do You Have A Plan To Hurt Yourself Or Others? No Information not available 11/10/2023 Has A Family Member Or Someone Close To You Committed Suicide Or Have You Been A Witness To Suicide? No Information not available 11/10/2023 Have You Fallen In The Last 3 Months? No Information n ot available 09/29/2023 What Was The Date Of Your Most Recent Tobacco Screening? 04/05/2024 [email or web address] Information not available 04/05/2024 What Is Your Relationship Status? Single Information not available 09/03/2023 Are You Passively Exposed To Smoke? No [email or web address] Information no t available 09/03/2023 Do You Use Any Illicit Or Recreational Drugs? No [email or web address] Information not available 09/03/2023 Do You Use Sunscreen Routinely? No [email or web address] Information not available 09/03/2023 Has Tobacco Cessation Counseling Been Provided? No Information not available 09/03/2023 Have You Recently Traveled Abroad? No [email or web address] Information not available 09/03/2023 Do You Or Have You Ever Used Any Other Forms Of Tobacco Or Nicotine? No Information not available 09/03/2023 Sex: Male Functional Status Question Answer Note LastModified by Organizat ion Details LastModified Time What is your exercise level? Occasional Information not available 09/03/2023 Mental Status None recorded. Family History Relationship Description Onset Age of this Age Resolved Age Notes LastModified by Organization Details LastModified Time Father Neoplasm of lung [email or web address] Not available 09/03 15:49:55 Paternal Grandmother Neoplasm of lung [email or web address] Not available 09/03 15:50:06 Medical History No medical history recorded. Past Encounters Encounter ID Performer Location Encounter Start Date Encounter Closed Date Diagnosis/Indication Diagnosis SNOMED-CT Code Diagnosis ICD10 Code Diagnosis Note [id number] Roseann Flores MD [address] [address] 09/29/2023 11:54:42 09/29/2023 13:47:19 Crohn's disease 17707825 K50.90 [id number] Roseann Flores MD [address] [address] 11/10/2023 14:07:01 11/10/2023 16:07:26 Crohn's disease of small intestine 77750167 K50.90 Upper resp iratory infection 78141354 J06.9 GO TO URGENT CARE [id number] Nuvia Garcia NP [address] [address] 11/10/2023 15:24:06 11/10/2023 19:26:27 Cough 68482155 R05.9 -COVID-19 negative.- See note above. Influenza caused by Influenza A virus 122254712 J09.X2 -Pt positive for influenza A today. Viral/self limited etiology discussed. Vital signs WNL w/ no findings suggestive of emergent etiology at this time.-Pt to rest, drink plenty of fluids w/ electrolyt es, and may take OTC acetaminop hen/ibupro fen as needed for fever/pain if not contraindi cated. Other OTC symptomati c treatments discussed. -Discussed OTC debrox for ear wax.-Pt is out of symptomati c window for anti-viral treatment. -Pt to follow-up w/ PCP or return to clinic if symptoms fail to improve or worsen. Red flag symptoms and when to seek emergency care discussed. -Pt verbalizes understand ing and is agreeable to plan of care. Note given for work today. [id number] Roseann Flores MD [address] [address] 03/29/2024 09:57:40 03/29/2024 11:08:17 Crohn's disease of small intestine 24631950 K50.90 Epigastric pain 29500769 R10.13 [id number] Destiny Thompson MD [address] [address] 04/05/2024 18:15:20 04/11/2024 17:45:30 Diarrhea 30346067 R19.7 from Crohn's push po fluids - await further testing per GI as they are pendingoff of work for a few days Health Concerns Section Related Observation LastModified by Organization Detai ls LastModified Time None Recorded Concern Status LastModified by Organization Details LastModified Time None Recorded Advance Directives Directive N: Payers Encounter Date Sequence Insurance Name Policy Number Policy Fernandez Covered Member ID Fernandez Member ID Guarantor Name 09/29/2023 1 [facility] [id number] 0003 [facility] [id number] [facility] 11/10/2023 1 [facility] [id number] 0003 [facility] [id number] [facility] 11/10/2023 1 [facility] [id number] 0003 [facility] [id number] [facility] 03/29/2024 1 [facility] [id number] 0003 [facility] [id number] [facility] 04/05/2024 1 [facility] [id number] 0003 [facility] [id number] [facility] Notes Date Note Type Note Provider Name and Address Organization Details Recorded Time 09/29/2023 text/html DONNA WAS SEEN IN THE OFFICE TODAY FOR EVALUATION . PT HAS IBD-CD FOR ..... PT WAS RXED WITH STELLARA . HIS INS WAS DENIED. PT WAS DX WITH CROHNS DZ IN 2009 . HE WAS ON DIFFERENT REGIMENS THAT HE FAILED INCLUDING HUMIRA . PT IS S/P TOTAL COLECTOMY IN 2012. HE HAD AN ILEOSTOMY FROM 2012 TO 2020 WHEN HE WAS REVERSED WITH AN ILEORECTAL ANASATAMOSIS . . PT WAS TAKING STELARA X 6 YRS. HE JUST RELOCATED HERE FROM [place] . HIS LAST STELARA DOSE WAS X 8 WEEKS AGO AND IS DUE FOR HIS NEXT DOSE NOW . PT IS REPORTS BMs x 5 daily . PT HAS AWT LOSS FROM 260 TO 245 LBS . HIS APPETITE IS FAIR . Roseann Flores MD [address] [place] [address], [phone], [facility] 09/29/2023 13:56:17 11/10/2023 text/html DONNA WAS SEN I N THE OFFICE TODAY FOR A F/U. PT HAS IBD-CD . HE IS S/P TOTAL COLECTOMY WITH AN ILEORECTAL ANASTAMOSIS . PT WAS ON STELARA X 6 YR . THIS IS NOT WORKING . CALPROTECTIN WAS 1510. ATTEMPTED ENTEROSCOPY WAS NOT POSSIBLE BECAUSE THERE WAS A STRICTURE AND I COULD NOT PROCEED BEYOND 5 CM. PT WAS RXED SKYRIZI. TODAY HE REPORTS THAT HE HAS A COLD /FEVER. BMs ARE 5X DAILY . DENIES BLEEDING SECOND DOSE OF SKYRIZI IS DUE ON 11/20/23. Roseann Flores MD [address] [place] [address], [phone], [facility] 11/10/2023 16:01:13 11/10/2023 text/html 28 y/o male pres ents in clinic c/o cough, congestion, CAUSEY, fatigue, and fever that began 4 days ago. Pt reports drinking and urinating adequately. Pt has not taken anything OTC. Pt denies any respiratory hx. Nuvia Garcia NP [address] [place] [address], [phone], [facility] 11/10/2023 16:38:38 03/29/2024 text/html DONNA WAS SEEN IN THE OFFICE TODAY FOR A GF/U PT HAS IBD-CD. PT IS S/P TOTAL COLECTOMY WITH AN ILEORECTAL ANATAMOSIS. PT HAS FAILED REMICADE / STELLARA. HE WAS RXED SKYRIZI IN 11/2023. HE HAD 3 INFUSIONS AND 2 X SQ INJECTIONS . PT IS C/O AND PAIN DIARRHEA AND RECTAL BLEEDING. THERE IS A WT LOSS OF 9 LBS. Roseann Flores MD [address] [place] [address], [phone], [facility] 03/29/2024 10:50:27 04/05/2024 text/html 29 year old male with Crohn's presented to the walk in clinic with diarrheahe feels like he is having a crohns flare and he has been working with his gi doc on possible treatment optionshe reports he is getting cramps after eat, cramping around the umbilicusincrease pain after eatingno weight losshe works at [employer] so it is hard to run to bathroom every few minutes - afraid of incontinenceno feverpo intake is variable/poor Destiny Thompson MD [address] [place] [address], [phone], [facility] 04/07/2024 14:58:14
--- OUTSIDE RECORDS SUMMARY | 2025-02-21 09:31 | XMS_ITS | Encounter Summary ---
Author Organization [facility] Address [address] [place] [address] Care Team Providers Care Sales Officer Name Role Phone Unavailable Primary Care Provider Unavailabl e Reason for Visit * Reason Onset Date Comments Follow-up Small Bowel Obstruction 07/05/2024 Spoke Rayna/ Rosa @ Dr. Mcallister's exchange Encounter Details Date Type Department Care Team (Late st Contact Info) Description 07/05/2024 Telephone [facility] Admitting [address] [place] [address] [place] [address] [place] [address] Follow-up Small Bowel Obstruction (Spoke Rayna/ Rosa @ Dr. Mcallister's exchange) Social History Tobacco Use Types Packs/Day Years Used Date Smoking Tobacco: Never Smokeless Tobacco: Never Alcohol Use Standard Drinks/Week Comments Not Currently 0 (1 standard drink = 0.6 oz pur e alcohol) Utility Needs Answer Date Recorded In the past 12 months has [employer], gas, oil, or water [employer] threatened to shut off services in your [...] How often do you attend chur or adventism services? Never 07/05/2024 Do you belong to any clubs o r organizations such as restorationist groups, unions, fraternal or athletic groups, or [...] any time in the past 12 m [facility], were you homeless or living in a fci (including now)? No 07/05/2024 Feeling Safe Answer Date Recorded Are you in a relationship wi th someone who hurts you emotionally and/or physically? No 07/05/2024 Food Insecurity Answer Date Recorded Social/Environmental Concerns [...] on file documented as of this encounter Plan of Treatment Upcoming Encounters Date Type Department Care Team (Late st Contact Info) Description 03/06/2025 9:00 AM CDT Office Visit [facility] Oncology and Hematology - Maulik [address] [facility] [address] [place] [address] Jose Reynolds MD [address] [facility] [address] [place] [phone] 05/22/2025 1:15 PM CDT Office Visit [facility] Surgical Spec Bels[place] B [address]011[address] [facility] [address] [place] [phone] Shannan Soler MD [address] [facility] [address] [place] [id number] documented as of this encounter Visit Diagnoses Not on filedocumented in this encounter Additional Health Concerns Infection Onset Date Last Indicated Resolved Time C Diff Comment:Added from external infection. 05/27/24 Cdiff @ [facility] 07/05/24 05/27/2024 07/05/2024 09/03/2024 1:16 AM C DT R/O GI Pathogen 07/05/2024 07/05/2024 07/05/2024 2 :35 PM CDT documented as of this encounter
--- OUTSIDE RECORDS SUMMARY | 2025-02-21 09:31 | XMS_ITS ---
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 Past Treatment and Therapy Plans ONCOLOGY TREATMENT Plan Name Start Date Discontinue Date Treatment Medications Discontinue Reason Plan Provider Cycles OP ONC COLON_m FOLFOX6 _BEVACI ZUMAB_E VERY 14 DAYS 4 09/06/2024 bevacizumab-awwb (MVASI) IVPBfluorouracil (5-FU) continuous infusionfluoruracil (5-FU) injectable syringeleucovorin (WELLCOVORIN) IVPBoxaliplatin (ELOXATIN) IVPB Other Rama Stockton MD Treatment not started Lifetime Dose Tracking * Chemical Lifetime Dose Automatic Entry Manual Entr y Effective Dose 10.54 mSv 10.54 mSv 0 mSv Total DLP 697.82 DLP 697.82 DLP 0 DLP CTDIvol Max 14.68 mGy 14.68 mGy 0 mGy Resolved Problems Problem Noted Date Diagnosed Date Resolved Date E. coli colitis 07/06/2024 07/17/2024 Nausea and vomiting 07/06/2024 07/17/20 24 Small bowel stricture 07/04/20242023
--- OUTSIDE RECORDS SUMMARY | 2025-02-21 09:31 | XMS_ITS | Data Portability ---
Author Organization [place] [facility] [employer] [facility] Address [address] [facility] [address] [place] [address] Assessment No assessment recorded. Plan of Treatment Reminders Order Date Submit Date Provider Last Modified By Organization Details Last Modified Time Details Appointments None recorded. Lab None recorded. Referral dermatolog ist referral - recurrent rash 2015 016 carlos Green MD (No Faxed Referrals), [address] [place], [address], 6 15:59:42 gastroente rologist referral 2014 [facility]15 [facility] Catal[facility] Felix MD, [address] [facility], [facility] [address], [place], [address], 5 13:32:28 gastroente rology surgery referral 2014 015 [facility] Percy Marques, [address] [facility], [place], [address], 5 10:15:10 Procedures None recorded. Surgeries None recorded. Imaging None recorded. Medication Orders Tobrex 0.3 % eye drops 2016 017 INTERFACE [facility], [address], [place], [address], 7 12:06:55 azithromyc in 250 mg tablet 2016 017 INTERFACE [facility], [address], [place], [address], 7 12:06:55 Depo-Medro l 80 mg/mL suspension for injection 2016 017 Not available 7 12:50:23 Tessalon Perles 100 mg capsule 2016 017 INTERFACE [facility] [address], [address], [place], [address], 7 12:06:57 triamcinol one acetonide 0.1 % lotion 2015 016 INTERFACE [facility] [address], [address], [place], [address], 6 15:30:38 Elimite 5 % topical cream 2015 016 [email or web address] [facility] [address], [address], [place], [address], 6 09:44:48 Depo-Medro l 80 mg/mL suspension for injection 2015 016 [email or web address] Not available 6 14:55:44 Vistaril 25 mg capsule 2015 016 ATHENAFAX [facility] [address], [address], [place], [address], 6 17:22:10 Elimite 5 % topical cream 2015 016 INTERFACE [facility] [address], [address], [place], [address], 6 10:02:22 Patient TargetsNo targets recorded. Patient Instructions Encounter Date Encounter Id Patient Instructions Last Modified By Organization Details Last Modified Time 02/07/2016 [id number] MAy use Benadryl prn itching Avoid hot showers and scratching ssiegler Not available 02/07/2016 10:02:13 if no imprvmnt may consider derm consult ssiegler Not available 02/07/2016 10:02:13 05/08/2016 [id number] apply cream at bedtime and thoroughly wash all clothing, bedding, etc in the home. F/u if persists Not available 05/08/2016 12:05:21 12/29/2016 [id number] Increase rest an d fluids. warm compress over the eyes Treat symptoms with OTC remedies Stay on top of fever w/ Tylenol & Motrin If symptoms persist or worsen - return to the clinic Not available 12/29/2016 12:07:58 Reason for Referral Referring Physician: Issa saba [facility], Encounter Date: 01/22/2015 Gastroenterology Surgery Ref erral for Crohn's disease of colon Referring Physician: Issa Cabello [facility], Encounter Date: 01/22/2015 [place] [place] Referral for E ruption caused by drug recurrent rash Referring Physician: Issa Cabello [facility], Encounter Date: 05/27/2016 Problems Name Problem SNOMED Code Status Onset Date Resolution Date Notes Provider Name and Address Organization Details Recorded Time Crohn's disease of colon [id number] DYLAN Flores [address], [place], [address] , [place] [facility] 6 11:56:24 Crusted scabies [id number] DYLAN Flores [address], [place], [address] , [place] [facility] 6 12:05:21 Pruritic disorder [id number] DYLAN Flores [address], [place], [address] , [place] [facility] 6 12:05:21 Eruption caused by drug [id number] Kei Cabello MD [address], [place], [address] , [facility] - [facility] 6 15:30:18 Problem Notes None recorded. Medical Equipment None Reported. Allergies Allergen ID Allergen Name Allergen Category Reaction Reaction Severity Criticality Documentation Date Start Date Code Code System Note Provider Name and Address Organization Details Recorded Time 94079 Product containin g penicilli n (product) medicatio n Not available Not available Not available 05/08/2016 03080 8001 SNOMED Madai Shawna coronel [place] [facility] 6 11:38:40 Medications Name Sig Start Date Stop Date Status Note LastModified by Organization Details LastModified Time azithromycin 250 mg tablet TAKE 2 TABLETS (500 MG) BY ORAL ROUTE ONCE DAILY FOR 1 DAY THEN 1 TABLET (250 MG) BY ORAL ROUTE ONCE DAILY FOR 4 DAYS 2016 active Not Available Not Available Not Avai lable permethrin 5 % topical cream APPLY (THOROUGHLY MASSAGE INTO SKIN FROM HEAD TO SOLES OF FEET) BY TOPICAL ROUTE ONCE LEAVE ON FOR 8-14 HR, THEN REMOVE BY THOROUGH WASHING active Not Available Not Available No t Available Depo-Medrol 80 mg/mL suspension for injection Take 80 mg by injection route. 2016 active Not Available Not Available Not Avai lable Tessalon Perles 100 mg capsule Take 1 capsule 3 times a day by oral route. 2016 active Not Available Not Available Not Avai lable Tobrex 0.3 % eye drops INSTILL 1 DROP INTO AFFECTED EYE(S) BY OPHTHALMIC ROUTE EVERY 4 HOURS 2016 active Not Available Not Available Not Avai lable ferrous sulfate 325 mg (65 mg iron) tablet Take by oral route. active Not Available Not Available Not Available lansoprazole 30 mg capsule,lita yed release Take 1 capsule every day by oral route. active Not Available Not Available No t Available mercaptopuri ne 50 mg tablet active Not Available Not Available Not Available Cortifoam 10 % (80 mg) rectal active Not Available Not Available Not Available triamcinolon e acetonide 0.1 % lotion APPLY A THIN LAYER TO THE AFFECTED AREA(S) BY TOPICAL ROUTE 2 TIMES PER DAY 2015 active Not Available Not Available Not Avai lable Vitamin D2 1,250 mcg (50,000 unit) capsule active Not Available Not Available Not Available hydroxyzine pamoate 25 mg capsule Take 1 capsule every 8 hours by oral route at bedtime. active Not Available Not Available Not Available Anti-Diarrhe a active Not Available Not Available Not Available Cimzia 400 mg/2 mL (200 mg/mL x 2) subcutaneous syringe kit active Not Available Not Available Not Available Vitals Date Recorded Body height Body weight Body mass index (BMI) Body temperature Heart rate Oxygen saturation Oxygen saturation in Arterial blood by Pulse oximetry Systolic blood pressure Diastolic blood pressure Provider Name and Address Organization Details Last Updated DateTime 7 185.42 cm 410997. 2 g 31.8 kg/m2 98.3 [degF] 108 /min 97 % 97 % 134 mm[Hg] 87 mm[Hg] Madai Matos [place] [facility] 7 11:47:36 Date Recorded Body temperature Oxygen saturation Oxygen saturation in Arterial blood by Pulse oximetry Heart rate Body height Body weight Body mass index (BMI) Systolic blood pressure Diastolic blood pressure Provider Name and Address Organization Details Last Updated DateTime 6 97.9 [degF] 96 % 96 % 78 /min 185.42 cm 741283. 0925 g 33 kg/m2 134 mm[Hg] 92 mm[Hg] Blossom Hernandez [place] - [facility] 6 09:24:01 Date Recorded Body weight Heart rate Body mass index (BMI) Body height Body temperature Systolic blood pressure Diastolic blood pressure Provider Name and Address Organization Details Last Updated DateTime 5 283657. 90704 g 92 /min 34.2 kg/m2 185.42 cm 98.7 [degF] 130 mm[Hg] 82 mm[Hg] Blossom Hernandez [place] [facility] 5 14:41:42 Date Recorded Body mass index (BMI) Heart rate Body weight Body temperature Oxygen saturation Oxygen saturation in Arterial blood by Pulse oximetry Body height Systolic blood pressure Diastolic blood pressure Provider Name and Address Organization Details Last Updated DateTime 6 32.5 kg/m2 100 /min 230236. 609502 g 99.8 [degF] 95 % 95 % 185.42 cm 143 mm[Hg] 89 mm[Hg] Madai Matos [place] [facility] 6 11:38:40 Date Recorded Body height Oxygen saturation Oxygen saturation in Arterial blood by Pulse oximetry Body weight Body mass index (BMI) Heart rate Body temperature Systolic blood pressure Diastolic blood pressure Provider Name and Address Organization Details Last Updated DateTime 6 185.42 cm 96 % 96 % 020491. 732615 g 32.2 kg/m2 66 /min 98.5 [degF] 142 mm[Hg] 90 mm[Hg] DANYELLE MONTESINOS [place] - [facility] 6 14:55:44 Social History Question Answer Notes LastModified by Organizat ion Details LastModified Time Tobacco Smoking Status Never Smoker Blossom coronel [place] - [facility] 02/07/2016 09:24:01 Do You Have An Advance Directive? No Information not available 01/22/2015 What Is Your Level Of Alcohol Consumption? None Information not available 02/07/2016 What Is Your Occupation? Unemployed Information not available 05/08/2016 How Many Children Do You Have? 0 Information not available 05/08/2016 Seat Belts Used Routinely Yes Information not available 01/22/2015 Smoke Alarm In Home Yes Information not available 01/22/2015 How Much Tobacco Do You Smoke? No Information not available 02/07/2016 General Stress Level Medium Information not available 05/08/2016 Sex: Unknown Functional Status None recorded. Mental Status None recorded. Family History Nothing Reported Notes:none per pt---rc Medical History Condition Response Coronary Artery Disease N Other N Gout N Kidney Stones N Blood Diseases N Hyperthyroidism N Blood Transfusion N Depression N COPD N Lung Disease N Hypothyroidism N Defects or Inherited Disease N Developmental or Behavioral Disorders N Breast Problem N Anxiety Disorder N Muscle, Joint, or Bone Problems N Obesity N Vision or Eye Problems N Arthritis N Polyps N Infertility N Cancer N Varicosities N Stroke N ADHD N Endometriosis N Bladder or Kidney Problems N High Cholesterol N Liver Disease N Headaches N Fibromyalgia N Kidney Disease N Ear or Hearing Problems N Hospitalizations N Thyroid Problems N GI Problems N Skin Problems N Eating Disorder N Anemia N Constipation N Mental Illness N Ovarian Cancer N Diabetes N Seizures/Epilepsy N Tuberculosis N AIDS/HIV N Congestive Heart Failure (CHF) N Eczema N Diverticulitis N Nasal polyps N Asthma N Allergies N Reflux/GERD N Hepatitis N Heart Disease N Pulmonary Embolism N Pre-Eclampsia N Hypertension N Osteoporosis N Past Encounters Encounter ID Performer Location Encounter Start Date Encounter Closed Date Diagnosis/Indication Diagnosis SNOMED-CT Code Diagnosis ICD10 Code Diagnosis Note [id number] Blossom David [facility] [address] [place] [address] 01/22/2015 14:12:28 01/22/2015 15:06:03 Crohn's disease of colon 34424795 History of anemia 513222570 [id number] Issa Cabello MD [facility] [address] [facility] [place] [address] 02/07/2016 09:03:24 02/07/2016 09:54:43 Crusted scabies 148843024 B86 wash bed linens and clothes in hot water Apply cream at hs and leave on overnight - Wash in Am and repeat in a week [id number] DYLAN Bowman [facility] [address] [place] [address] 05/08/2016 11:19:51 05/08/2016 12:07:55 Crusted scabies 954321516 B86 Pruritic disorder 860870 002 L29.9 [id number] Julissalinda Morrell [facility] [address] [place] [address] 05/27/2016 14:48:05 05/28/2016 09:24:56 Eruption caused by drug 33164789 L27.0 [id number] DYLAN Bowman [facility] [place] [address] 12/29/2016 11:14:18 12/29/2016 12:23:24 Upper respiratory infection 79475963 J06.9 Conjunctivitis 6974847 H 10.9 Health Concerns Section Related Observation LastModified by Organization Detai ls LastModified Time None Recorded Concern Status LastModified by Organization Details LastModified Time None Recorded Advance Directives Directive N: Payers Encounter Date Sequence Insurance Name Policy Number Policy Fernandez Covered Member ID Fernandez Member ID Guarantor Name 01/22/2015 1 [place] [id number] [facility] [id number] 02/07/2016 1 [place] [id number] [facility] [id number] [facility] 05/08/2016 1 [place] [id number] [facility] [id number] 52 [facility] 05/27/2016 1 [place] [id number] [facility] [id number] [facility] 12/29/2016 1 [place] [id number] [facility] [id number] [facility] Notes Date Note Type Note Provider Name and Address Organization Details Recorded Time 01/22/2015 text/html Crohn's - h/o as above - s/p colon resection - temporary colostomy w hope to reanastomoze in several months when everything calms down - Apears to be doing well - Anemia in the past - related to heavy persistent GI blood loss Issa Cabello MD [address] [facility] [address], [place], [address], [place] [facility] 01/22/2015 15:12:32 02/07/2016 text/html presents w 2 wee k h/o rash mainly affecting lower legs / feet and forearms - itchy at times - Has not done anything for it so far - No systemic sx - Denies exposure Scabies and no recent travel - He has Crohn's and on meds for this No change in meds but some increase in 6 MP dose a couple months ago - No significant groin or torso involvement that he is aware - Issa Cabello MD [address], [place], [address], [place] [facility] 02/07/2016 10:02:21 05/08/2016 text/html Rash/Skin LesionReported bypatient.Location[facility] Quality:not painful; not bleeding; decreasing in size; stable; getting progressive care manager;itchy;red;mult iple;spreading Duration:x 2 days Context:no new detergents or skin products; no one else with similar rash; not scratching Associated Symptoms:no fever; no cold symptoms; no nausea; no vomiting; no diarrhea; no urinary symptoms; no chills; no fatigue; no change in weight DYLAN Bowman [address], [place], [address], [place] [facility] 05/08/2016 12:06:03 05/27/2016 text/html Rash/Skin Lesion F/UReported bypatient.Location[facility] Quality:non-healing Severity:moderateNotes :patient presents for rash that has not got better; patient had scabies 05/08/16. cream did not help Issa Cabello MD [address], [place], [address], [facility] - [facility] 05/27/2016 16:43:34 12/29/2016 text/html Upper Respirator y SymptomsReported bypatient.Location:[facility]; throat Quality:sharp throat pain;congested;hacking cough;dry cough Severity:mild Duration:DAY 3 Associated Symptoms:wheezing;morn ing cough;sore throatNotes:possible pink eye that started in the Rt eye and has now caused symptoms in the Lt eye as well. DYLAN Bowman [address], [place], [address], [facility] - [facility] 12/29/2016 12:08:02
--- OUTSIDE RECORDS SUMMARY | 2025-02-21 09:31 | XMS_ITS | Encounter Summary ---
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 Nerdies, oil, or water [employer] threatened to shut off services in your [...] 07/05/2024 How often do you attend chur ch or yarsani services? Never 07/05/2024 Do you belong to any clubs o r organizations such as hindu groups, unions, fraternal or athletic groups, or [...] any time in the past 12 m [facility], were you homeless or living in a penitentiary (including now)? No 07/05/2024 Feeling Safe Answer [...] Description 03/06/2025 9:00 AM CDT Office Visit [facility] Oncology and Hematology - Maulik [address] [facility] [address] [place] [phone] Jose Reynolds MD [address] [facility] [address] [place] [address] 05/22/2025 1:15 PM CDT Office Visit [facility] Surgical Spec [place] [id number] [facility] [address] [place] [phone] Shannan Soler MD [address] [facility] [address] [place] [address] documented as of this encounter Visit Diagnoses Diagnosis 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 (CMS/HCC) documented in this encounter
--- OUTSIDE RECORDS SUMMARY | 2025-02-21 09:31 | XMS_ITS | Data Portability ---
Author Organization [facility] RAMÓNBret Godwin Address [address] [place] [address] Care Team Providers Care Train Clerk Name Role Phone DOLLY LOO Medical Oncologist ALIVIA VALDES Floral Specialist [phone] Assessment No assessment recorded. Plan of Treatment Reminders Order Date Submit Date Provider Last Modified By Organization Details Last Modified Time Details Appointments None record ed. Lab None record ed. Referral None record ed. Procedures None record ed. Surgeries None record ed. Imaging None record ed. Medication Orders losart an 25 mg tablet 2024 025 [email or web address] [id number], [address], 13:17:48 trazod one 100 mg tablet 2024 025 JESÚS [facility] [id number], [address], 12:03:37 losart an 25 mg tablet 2024 025 [email or web address] [id number], [address], 13:17:48 Patient TargetsNo targets recorded. Patient Instructions Encounter Date Encounter Id Patient Instructions Last Modified By Organization Details Last Modified Time 12/16/2024 [id number] A healthy lifestyle: care instructions sreichling Not available 12/16/2024 12:03:31 Well Visit, Ages 18 to 65: Care Instructions sreichling Not available 12/16/2024 12:03:31 eating healthy foods: care instructions sreichling Not available 12/16/2024 12:03:31 walking for exercise: care instructions sreichling Not available 12/16/2024 12:03:31 12/19/2024 [id number] blood pressure check* - done in office sreichling Not available 12/19/2024 13:39:38 01/05/2025 [id number] blood pressure check* - Done in office sreichling Not available 01/05/2025 14:37:09 Reason for Referral None Reported. Results Created Date Observation Date Name Description Value Unit Range Abnormal Flag Note LastModifiedBy Organization Detail LastModifiedTime 05/29/20 24 05/29/2024 Hepat itis B virus surfa ce Ag [Pres ence] in Serum hepatitis B virus surface Ag [presence] in serum Non Reacti ve text: non reacti ve HBsAg Non React reggie Non React reggie 05/29 7:08 AM CDT [facility] Not Available Not Available 12/15/2024 12:44:52 05/29/20 24 05/29/2024 Hepat itis B virus surfa ce Ag [Pres ence] in Serum interpretati on and review of laboratory results Normal Not Available Not Available 12/03 12:44:52 05/29/20 24 06/07/2024 Thiop urine methy ltran sfera se [Enzy matic activ ity/v olume ] in Blood tpmt activity 26.8 text: units/ mL RBC TPMT Activ ity 26.8 Units /mL RBC 06/07 4:12 PM CDT [facility] ([facility] ) Not Available Not Available 12/15/2024 12:44:52 05/29/20 24 06/07/2024 Thiop urine methy ltran sfera se [Enzy matic activ ity/v olume ] in Blood interpretati on Commen t Inter preta tion Comme nt 06/07 4:12 PM CDT [facility] ([facility] ) Not Available Not Available 12/15/2024 12:44:52 05/29/20 24 06/07/2024 Thiop urine methy ltran sfera se [Enzy matic activ ity/v olume ] in Blood methodology Commen t Metho dolog y Comme nt 06/07 4:12 PM CDT [facility] RP ([facility] ) Not Available Not Available 12/15/2024 12:44:52 05/29/20 24 06/07/2024 Thiop urine methy ltran sfera se [Enzy matic activ ity/v olume ] in Blood Unknown Analyte Perfor med at: 01 - [facility] [address] [place] [address] [id number] Lab Direct or: Abhishek rivas MD, Perfo rmed at: 01 - [employer] [address] [place] [phone] Lab Direc tor: Abhsihek garcia MD, Phone : [phone] Not Available Not Available 12/15/2024 12:44:52 05/30/20 24 05/30/2024 CBC W Auto Diffe renti al panel - Blood leukocytes [#/volume] in blood by automated count 8.5 text: 4.0 - 10.7 x10e9/ L WBC 8.5 4.0 - 10.7 x10E9 /L 05/30 6:33 AM CDT [facility] Not Available Not Available 12/15/2024 12:44:52 05/30/20 24 05/30/2024 CBC W Auto Diffe renti al panel - Blood erythrocytes [#/volume] in blood by automated count 4.63 text: 4.30 - 5.80 x10e12 /L RBC Count 4.63 4.30 - 5.80 x10E1 2/L 05/30 6:33 AM CDT [facility] Not Available Not Available 12/15/2024 12:44:52 05/30/20 24 05/30/2024 CBC W Auto Diffe renti al panel - Blood hemoglobin [mass/volume ] in blood 11.7 g/dL low: 13.3g/ dLhigh : 17.5g/ dL low Hemog lobin 11.7 (L) 13.3 - 17.5 g/dL 05/30 6:33 AM CDT [facility] Not Available Not Available 12/15/2024 12:44:52 05/30/20 24 05/30/2024 CBC W Auto Diffe jesusita al panel - Blood hematocrit [volume fraction] of blood by automated count 36.1 % low: 38.7%h igh: 51.1% low Hemat ocrit 36.1 (L) 38.7 - 51.1 % 05/30 6:33 AM CDT [facility] Not Available Not Available 12/15/2024 12:44:52 05/30/20 24 05/30/2024 CBC W Auto Diffe jesusita silverio panel - Blood MCV [entitic volume] by automated count 78 fL low: 80fLhi gh: 98fL low MCV 78.0 (L) 80.0 - 98.0 fL 05/30 6:33 AM CDT [facility] Not Available Not Available 12/15/2024 12:44:52 05/30/20 24 05/30/2024 CBC W Auto Diffanthony silverio panel - Blood MCH [entitic mass] by automated count 25.3 pg low: 26.7pg high: 33.6pg low MCH 25.3 (L) 26.7 - 33.6 pg 05/30 6:33 AM CDT [facility] Not Available Not Available 12/15/2024 12:44:52 05/30/20 24 05/30/2024 CBC W Auto Diffe jesusita silverio panel - Blood MCHC [mass/volume ] by automated count 32.4 g/dL low: 31.7g/ dLhigh : 36.3g/ dL MCHC 32.4 31.7 - 36.3 g/dL 05/30 6:33 AM CDT [facility] Not Available Not Available 12/15/2024 12:44:52 05/30/20 24 05/30/2024 CBC W Auto Diffe jesusita silverio panel - Blood erythrocyte distribution width [ratio] by automated count 19.2 % low: 11.3%h igh: 14.8% high RDW-C V 19.2 (H) 11.3 - 14.8 % 05/30 6:33 AM CDT [facility] Not Available Not Available 12/15/2024 12:44:52 05/30/20 24 05/30/2024 CBC W Auto Diffe renti al panel - Blood platelets [#/volume] in blood by automated count 197 text: 150 - 420 x10e9/ L Plate let Count 197 150 - 420 x10E9 /L 05/30 6:33 AM CDT [facility] Not Available Not Available 12/15/2024 12:44:52 05/30/20 24 05/30/2024 CBC W Auto Diffe renti al panel - Blood platelet mean volume [entitic volume] in blood by automated count 8.7 fL low: 7.8fLh igh: 11.4fL MPV 8.7 7.8 - 11.4 fL 05/30 6:33 AM CDT [facility] Not Available Not Available 12/15/2024 12:44:52 05/30/20 24 05/30/2024 CBC W Auto Diffe renti al panel - Blood neutrophils/ 100 leukocytes in blood by automated count 69.4 % low: 41%hig h: 74% Neutr ophil % 69.4 41.0 - 74.0 % 05/30 6:33 AM CDT [facility] Not Available Not Available 12/15/2024 12:44:52 05/30/20 24 05/30/2024 CBC W Auto Diffe renti al panel - Blood lymphocytes/ 100 leukocytes in blood by automated count 22.2 % low: 17%hig h: 47% Lymph ocyte % 22.2 17.0 - 47.0 % 05/30 6:33 AM CDT [facility] Not Available Not Available 12/15/2024 12:44:52 05/30/20 24 05/30/2024 CBC W Auto Diffe renti al panel - Blood monocytes/10 0 leukocytes in blood by automated count 6.7 % low: 3%high : 11% Monoc yte % 6.7 3.0 - 11.0 % 05/30 6:33 AM CDT [facility] Not Available Not Available 12/15/2024 12:44:52 05/30/20 24 05/30/2024 CBC W Auto Diffe renti al panel - Blood eosinophils/ 100 leukocytes in blood by automated count 1.2 % low: 0%high : 7% Eosin ophil % 1.2 0.0 - 7.0 % 05/30 6:33 AM CDT [facility] Not Available Not Available 12/15/2024 12:44:52 05/30/20 24 05/30/2024 CBC W Auto Diffe renti al panel - Blood basophils/10 0 leukocytes in blood by automated count 0.1 % low: 0%high : 1.6% Basop hil % 0.1 0.0 - 1.6 % 05/30 6:33 AM CDT [facility] Not Available Not Available 12/15/2024 12:44:52 05/30/20 24 05/30/2024 CBC W Auto Diffe renti al panel - Blood immature granulocytes /100 leukocytes in blood by automated count 0.4 % low: 0%high : 1% Immat ure Granu locyt es % 0.4 0.0 - 1.0 % 05/30 6:33 AM CDT [facility] Not Available Not Available 12/15/2024 12:44:52 05/30/20 24 05/30/2024 CBC W Auto Diffe renti al panel - Blood neutrophils [#/volume] in blood by automated count 5.93 text: 1.60 - 7.50 x10e9/ L Neutr ophil Absol sioux 5.93 1.60 - 7.50 x10E9 /L 05/30 6:33 AM CDT [facility] Not Available Not Available 12/15/2024 12:44:52 05/30/20 24 05/30/2024 CBC W Auto Diffe renti al panel - Blood lymphocytes [#/volume] in blood by automated count 1.89 text: 1.00 - 4.40 x10e9/ L Lymph ocyte Absol sioux 1.89 1.00 - 4.40 x10E9 /L 05/30 6:33 AM CDT [facility] Not Available Not Available 12/15/2024 12:44:52 05/30/20 24 05/30/2024 CBC W Auto Diffe renti al panel - Blood monocytes [#/volume] in blood by automated count 0.57 text: 0.15 - 1.00 x10e9/ L Monoc yte Absol sioux 0.57 0.15 - 1.00 x10E9 /L 05/30 6:33 AM CDT [facility] Not Available Not Available 12/15/2024 12:44:52 05/30/20 24 05/30/2024 CBC W Auto Diffe renernestina al panel - Blood eosinophils [#/volume] in blood 0.1 text: 0.00 - 0.60 x10e9/ L Eosin ophil Absol sioux 0.10 0.00 - 0.60 x10E9 /L 05/30 6:33 AM CDT [facility] Not Available Not Available 12/15/2024 12:44:52 05/30/20 24 05/30/2024 CBC W Auto Diffe jesusita al panel - Blood basophils [#/volume] in blood by automated count 0.01 text: 0.00 - 0.13 x10e9/ L Basop hil Absol sioux 0.01 0.00 - 0.13 x10E9 /L 05/30 6:33 AM CDT [facility] Not Available Not Available 12/15/2024 12:44:52 05/30/20 24 05/30/2024 CBC W Auto Diffe jesusita al panel - Blood interpretati on and review of laboratory results Abnorm al Not Available Not Available 12:44:52 05/30/20 24 05/30/2024 Renal funct ion 1999 panel - Serum or Plasm a glucose [mass/volume ] in serum or plasma 111 mg/dL low: 70mg/d Lhigh: 105mg/ dL high Gluco se 111 (H) 70 - 105 mg/dL 05/30 6:52 AM CDT [facility] Not Available Not Available 12/15/2024 12:44:52 05/30/20 24 05/30/2024 Renal funct ion 1999 panel - Serum or Plasm a sodium [moles/volum e] in serum or plasma 137 mmol/ L low: 136mmo l/Lhig h: 145mmo l/L Sodiu m 137 136 - 145 mmol/ L 05/30 6:52 AM [facility] Not Available Not Available 12/15/2024 12:44:52 05/30/20 24 05/30/2024 Renal funct ion 1999 panel - Serum or Plasm a potassium [moles/volum e] in serum or plasma 3.3 mmol/ L low: 3.5mmo l/Lhig h: 5.1mmo l/L low Potas sium 3.3 (L) 3.5 - 5.1 mmol/ L 05/30 6:52 AM [employer] [facility] Not Available Not Available 12/15/2024 12:44:52 05/30/20 24 05/30/2024 Renal funct ion 1999 panel - Serum or Plasm a chloride [moles/volum e] in serum or plasma 103 mmol/ L low: 98mmol /Lhigh : 107mmo l/L Chlor clifton 103 98 - 107 mmol/ L 05/30 6:52 AM [employer] [facility] [employer] AT[facility] Not Available Not Available 12/15/2024 12:44:52 05/30/20 24 05/30/2024 Renal funct ion 1999 panel - Serum or Plasm a carbon dioxide, total [moles/volum e] in serum or plasma 28 mmol/ L low: 22mmol /Lhigh : 29mmol /L CO2 28 22 - 29 mmol/ L 05/30 6:52 AM [facility] [facility] Not Available Not Available 12/15/2024 12:44:52 05/30/20 24 05/30/2024 Renal funct ion 1999 panel - Serum or Plasm a calcium [mass/volume ] in serum or plasma 9.1 mg/dL low: 8.4mg/ dLhigh : 10.4mg /dL Calci um 9.1 8.4 - 10.4 mg/dL 05/30 6:52 AM [facility] Not Available Not Available 12/15/2024 12:44:52 05/30/20 24 05/30/2024 Renal funct ion 1999 panel - Serum or Plasm a anion gap in blood 6 mmol/ L low: 6mmol/ Lhigh: 16mmol /L Anion Gap 6 6 - 16 mmol/ L 05/30 6:52 AM [facility] Not Available Not Available 12/15/2024 12:44:52 05/30/20 24 05/30/2024 Renal funct ion 1999 panel - Serum or Plasm a urea nitrogen [mass/volume ] in serum or plasma 19 mg/dL low: 5.3mg/ dLhigh : 18.7mg /dL high BUN 19 (H) 5.3 - 18.7 mg/dL 05/30 6:52 AM [facility] Not Available Not Available 12/15/2024 12:44:52 05/30/20 24 05/30/2024 Renal funct ion 1999 panel - Serum or Plasm a creatinine [mass/volume ] in serum or plasma 0.97 mg/dL low: 0.72mg /dLhig h: 1.25mg /dL Creat inine 0.97 0.72 - 1.25 mg/dL 05/30 6:52 AM [facility] Not Available Not Available 12/15/2024 12:44:52 05/30/20 24 05/30/2024 Renal funct ion 1999 panel - Serum or Plasm a albumin [mass/volume ] in serum or plasma 3.5 text: 3.4 - 5.0 gm/dL Album in 3.5 3.4 - 5.0 gm/dL 05/30 6:52 AM [facility] Not Available Not Available 12/15/2024 12:44:52 05/30/20 24 05/30/2024 Renal funct ion 1999 panel - Serum or Plasm a phosphate [mass/volume ] in serum or plasma 3 mg/dL low: 2.3mg/ dLhigh : 4.7mg/ dL Phosp horus 3.0 2.3 - 4.7 mg/dL 05/30 6:52 AM [facility] Not Available Not Available 12/15/2024 12:44:52 05/30/20 24 05/30/2024 Renal funct ion 2000 panel - Serum or Plasm a glomerular filtration rate/1.73 sq M.predicted [volume rate/area] in serum, plasma or blood by creatinine-b ased formula (CKD-epi) text: >=90 mL/min /1.73 m2 eGFR by CKD-E PI >90 >=90 mL/mi n/1.7 3 m2 05/30 6:52 AM T [facility] Not Available Not Available 12/15/2024 12:44:52 05/30/20 24 05/30/2024 Renal funct ion 1999 panel - Serum or Plasm a interpretati on and review of laboratory results Abnorm al Not Available Not Available 12:44:52 05/31/20 24 05/31/2024 Basic metab olic 1999 panel - Serum or Plasm a glucose [mass/volume ] in serum or plasma 92 mg/dL low: 70mg/d Lhigh: 105mg/ dL Gluco se 92 70 - 105 mg/dL 05/31 7:56 AM [facility] Not Available Not Available 12/15/2024 12:44:53 05/31/20 24 05/31/2024 Basic metab olic 1999 panel - Serum or Plasm a sodium [moles/volum e] in serum or plasma 137 mmol/ L low: 136mmo l/Lhig h: 145mmo l/L Sodiu m 137 136 - 145 mmol/ L 05/31 7:56 AM T [facility] [employer] ATORY Not Available Not Available 12/15/2024 12:44:53 05/31/20 24 05/31/2024 Basic metab olic 1999 panel - Serum or Plasm a potassium [moles/volum e] in serum or plasma 3.7 mmol/ L low: 3.5mmo l/Lhig h: 5.1mmo l/L Potas sium 3.7 3.5 - 5.1 mmol/ L 05/31 7:56 AM CDT [facility] Not Available Not Available 12/15/2024 12:44:53 05/31/20 24 05/31/2024 Basic metab olic 1999 panel - Serum or Plasm a chloride [moles/volum e] in serum or plasma 104 mmol/ L low: 98mmol /Lhigh : 107mmo l/L Chlor clifton 104 98 - 107 mmol/ L 05/31 7:56 AM CDT [facility] Not Available Not Available 12/15/2024 12:44:53 05/31/20 24 05/31/2024 Basic metab olic 1999 panel - Serum or Plasm a carbon dioxide, total [moles/volum e] in serum or plasma 24 mmol/ L low: 22mmol /Lhigh : 29mmol /L CO2 24 22 - 29 mmol/ L 05/31 7:56 AM CDT [facility] Not Available Not Available 12/15/2024 12:44:53 05/31/20 24 05/31/2024 Basic metab olic 1999 panel - Serum or Plasm a calcium [mass/volume ] in serum or plasma 9.4 mg/dL low: 8.4mg/ dLhigh : 10.4mg /dL Calci um 9.4 8.4 - 10.4 mg/dL 05/31 7:56 AM CDT [facility] Not Available Not Available 12/15/2024 12:44:53 05/31/20 24 05/31/2024 Basic metab olic 1999 panel - Serum or Plasm a anion gap in blood 9 mmol/ L low: 6mmol/ Lhigh: 16mmol /L Anion Gap 9 6 - 16 mmol/ L 05/31 7:56 AM CDT [facility] Not Available Not Available 12/15/2024 12:44:53 05/31/20 24 05/31/2024 Basic metab olic 1999 panel - Serum or Plasm a urea nitrogen [mass/volume ] in serum or plasma 17 mg/dL low: 5.3mg/ dLhigh : 18.7mg /dL BUN 17 5.3 - 18.7 mg/dL 05/31 7:56 AM CDT [facility] Not Available Not Available 12/15/2024 12:44:53 05/31/20 24 05/31/2024 Basic metab olic 1999 panel - Serum or Plasm a creatinine [mass/volume ] in serum or plasma 0.92 mg/dL low: 0.72mg /dLhig h: 1.25mg /dL Creat inine 0.92 0.72 - 1.25 mg/dL 05/31 7:56 AM CDT [facility] Not Available Not Available 12/15/2024 12:44:53 05/31/20 05/31/2024 Basic metab olic 1999 panel - Serum or Plasm a glomerular filtration rate/1.73 sq M.predicted [volume rate/area] in serum, plasma or blood by creatinine-b ased formula (CKD-epi) text: >=90 mL/min /1.73 m2 eGFR by CKD-E PI >90 >=90 mL/mi n/1.7 3 m2 05/31 7:56 AM CDT [facility] Not Available Not Available 12/15/2024 12:44:53 05/31/20 24 05/31/2024 Basic metab olic 1999 panel - Serum or Plasm a interpretati on and review of laboratory results Normal Not Available Not Available 12/03 12:44:53 05/31/20 24 05/31/2024 Bilir ubin. total [Mass /volu me] in Serum or Plasm a bilirubin.to florian [mass/volume ] in serum or plasma 0.6 mg/dL low: 0.2mg/ dLhigh : 1.2mg/ dL Bilir ubin Total 0.6 0.2 - 1.2 mg/dL 05/31 6:11 AM CDT [facility] Not Available Not Available 12/15/2024 12:44:53 05/31/20 24 05/31/2024 Bilir ubin. total [Mass /volu me] in Serum or Plasm a interpretati on and review of laboratory results Normal Not Available Not Available 12/03 12:44:53 05/31/20 24 05/31/2024 ABO and Rh group [Type ] in Blood ABO and Rh group [type] in blood O POS ABO Rh O POS 05/31 6:15 AM [facility] Not Available Not Available 12/15/2024 12:44:52 06/01/20 24 06/01/2024 Magne sium [Mass /volu me] in Serum or Plasm a magnesium [mass/volume ] in serum or plasma 2.1 mg/dL low: 1.6mg/ dLhigh : 2.6mg/ dL Magne sium 2.1 1.6 - 2.6 mg/dL 06/01 8:01 AM CDT [facility] Not Available Not Available 12/15/2024 12:44:53 06/01/20 24 06/01/2024 Magne sium [Mass /volu me] in Serum or Plasm a interpretati on and review of laboratory results Normal Not Available Not Available 12/03 12:44:53 06/01/20 24 06/01/2024 [employer] olic 1999 panel - Serum or Plasm a glucose [mass/volume ] in serum or plasma 110 mg/dL low: 70mg/d Lhigh: 105mg/ dL high Gluco se 110 (H) 70 - 105 mg/dL 06/01 4:27 AM T [facility] Not Available Not Available 12/15/2024 12:44:53 06/01/20 24 06/01/2024 [employer] olic 1999 panel - Serum or Plasm a sodium [moles/volum e] in serum or plasma 140 mmol/ L low: 136mmo l/Lhig h: 145mmo l/L Sodiu m 140 136 - 145 mmol/ L 06/01 4:27 AM T [facility] Not Available Not Available 12/15/2024 12:44:53 06/01/20 24 06/01/2024 Basic metab olic 1999 panel - Serum or Plasm a potassium [moles/volum e] in serum or plasma 3.4 mmol/ L low: 3.5mmo l/Lhig h: 5.1mmo l/L low Potas sium 3.4 (L) 3.5 - 5.1 mmol/ L 06/01 4:27 AM T [facility] Not Available Not Available 12/15/2024 12:44:53 06/01/20 24 06/01/2024 [employer] olic 1999 panel - Serum or Plasm a chloride [moles/volum e] in serum or plasma 106 mmol/ L low: 98mmol /Lhigh : 107mmo l/L Chlor clifton 106 98 - 107 mmol/ L 06/01 4:27 AM [facility] Not Available Not Available 12/15/2024 12:44:53 06/01/20 24 06/01/2024 Basic metab olic 1999 panel - Serum or Plasm a carbon dioxide, total [moles/volum e] in serum or plasma 25 mmol/ L low: 22mmol /Lhigh : 29mmol /L CO2 25 22 - 29 mmol/ L 06/01 4:27 AM [employer] [facility] [employer] ATORY Not Available Not Available 12/15/2024 12:44:53 06/01/20 24 06/01/2024 [employer] 1999 panel - Serum or Plasm a calcium [mass/volume ] in serum or plasma 9.1 mg/dL low: 8.4mg/ dLhigh : 10.4mg /dL Calci um 9.1 8.4 - 10.4 mg/dL 06/01 4:27 AM [employer] [facility] [employer] AT[facility] Not Available Not Available 12/15/2024 12:44:53 06/01/20 24 06/01/2024 [employer] panel - Serum or Plasm a anion gap in blood 9 mmol/ L low: 6mmol/ Lhigh: 16mmol /L Anion Gap 9 6 - 16 mmol/ L 06/01 4:27 AM [employer] [facility] [employer] AT[facility] Not Available Not Available 12/15/2024 12:44:53 06/01/20 24 06/01/2024 [employer] 1999 panel - Serum or Plasm a urea nitrogen [mass/volume ] in serum or plasma 19 mg/dL low: 5.3mg/ dLhigh : 18.7mg /dL high BUN 19 (H) 5.3 - 18.7 mg/dL 06/01 4:27 AM [employer] [facility] [employer] AT[facility] Not Available Not Available 12/15/2024 12:44:53 06/01/20 24 06/01/2024 [employer] 1999 panel - Serum or Plasm a creatinine [mass/volume ] in serum or plasma 0.95 mg/dL low: 0.72mg /dLhig h: 1.25mg /dL Creat inine 0.95 0.72 - 1.25 mg/dL 06/01 4:27 AM [facility] [employer] AT[facility] Not Available Not Available 12/15/2024 12:44:53 06/01/20 24 06/01/2024 [employer] 1999 panel - Serum or Plasm a glomerular filtration rate/1.73 sq M.predicted [volume rate/area] in serum, plasma or blood by creatinine-b ased formula (CKD-epi) text: >=90 mL/min /1.73 m2 eGFR by CKD-E PI >90 >=90 mL/mi n/1.7 3 m2 06/01 4:27 AM [employer] [facility] Not Available Not Available 12/15/2024 12:44:53 06/01/20 24 06/01/2024 Basic metab olic 2000 panel - Serum or Plasm a interpretati on and review of laboratory results Abnorm al Not Available Not Available 12:44:53 06/01/20 24 06/01/2024 CBC W Auto Diffe jesusita al panel - Blood leukocytes [#/volume] in blood by automated count 8.3 text: 4.0 - 10.7 x10e9/ L WBC 8.3 4.0 - 10.7 x10E9 /L 06/01 4:11 AM [employer] [facility] Not Available Not Available 12/15/2024 12:44:53 06/01/20 24 06/01/2024 CBC W Auto Diffe jesusita al panel - Blood erythrocytes [#/volume] in blood by automated count 4.89 text: 4.30 - 5.80 x10e12 /L RBC Count 4.89 4.30 - 5.80 x10E1 2/L 06/01 4:11 AM CDT [facility] Not Available Not Available 12/15/2024 12:44:53 06/01/20 24 06/01/2024 CBC W Auto Diffe renti al panel - Blood hemoglobin [mass/volume ] in blood 12.4 g/dL low: 13.3g/ dLhigh : 17.5g/ dL low Hemog lobin 12.4 (L) 13.3 - 17.5 g/dL 06/01 4:11 AM [employer] [facility] AT[facility] Not Available Not Available 12/15/2024 12:44:53 06/01/20 24 06/01/2024 CBC W Auto Diffe jesusita al panel - Blood hematocrit [volume fraction] of blood by automated count 38.6 % low: 38.7%h igh: 51.1% low Hemat ocrit 38.6 (L) 38.7 - 51.1 % 06/01 4:11 AM CDT [facility] Not Available Not Available 12/15/2024 12:44:53 06/01/20 24 06/01/2024 CBC W Auto Diffe jesusita al panel - Blood MCV [entitic volume] by automated count 78.9 fL low: 80fLhi gh: 98fL low MCV 78.9 (L) 80.0 - 98.0 fL 06/01 4:11 AM CDT [facility] Not Available Not Available 12/15/2024 12:44:53 06/01/20 24 06/01/2024 CBC W Auto Diffe jesusita [employer] panel - Blood MCH [entitic mass] by automated count 25.4 pg low: 26.7pg high: 33.6pg low MCH 25.4 (L) 26.7 - 33.6 pg 06/01 4:11 AM CDT [facility] Not Available Not Available 12/15/2024 12:44:53 06/01/20 24 06/01/2024 CBC W Auto Diffe jesusita [employer] panel - Blood MCHC [mass/volume ] by automated count 32.1 g/dL low: 31.7g/ dLhigh : 36.3g/ dL MCHC 32.1 31.7 - 36.3 g/dL 06/01 4:11 AM CDT [facility] Not Available Not Available 12/15/2024 12:44:53 06/01/20 24 06/01/2024 CBC W Auto Diffanthony silverio panel - Blood erythrocyte distribution width [ratio] by automated count 19.7 % low: 11.3%h igh: 14.8% high RDW-C V 19.7 (H) 11.3 - 14.8 % 06/01 4:11 AM CDT [facility] Not Available Not Available 12/15/2024 12:44:53 06/01/20 24 06/01/2024 CBC W Auto Diffe jesusita al panel - Blood platelets [#/volume] in blood by automated count 243 text: 150 - 420 x10e9/ L Plate let Count 243 150 - 420 x10E9 /L 06/01 4:11 AM CDT [facility] Not Available Not Available 12/15/2024 12:44:53 06/01/20 24 06/01/2024 CBC W Auto Diffe renti al panel - Blood platelet mean volume [entitic volume] in blood by automated count 8.6 fL low: 7.8fLh igh: 11.4fL MPV 8.6 7.8 - 11.4 fL 06/01 4:11 AM CDT [facility] Not Available Not Available 12/15/2024 12:44:53 06/01/20 24 06/01/2024 CBC W Auto Diffe renti al panel - Blood neutrophils/ 100 leukocytes in blood by automated count 59.2 % low: 41%hig h: 74% Neutr ophil % 59.2 41.0 - 74.0 % 06/01 4:11 AM CDT [facility] Not Available Not Available 12/15/2024 12:44:53 06/01/20 24 06/01/2024 CBC W Auto Diffe renti al panel - Blood lymphocytes/ 100 leukocytes in blood by automated count 30 % low: 17%hig h: 47% Lymph ocyte % 30.0 17.0 - 47.0 % 06/01 4:11 AM CDT [facility] Not Available Not Available 12/15/2024 12:44:53 06/01/20 24 06/01/2024 CBC W Auto Diffe renti al panel - Blood monocytes/10 0 leukocytes in blood by automated count 6.3 % low: 3%high : 11% Monoc yte % 6.3 3.0 - 11.0 % 06/01 4:11 AM T [facility] Not Available Not Available 12/15/2024 12:44:53 06/01/20 24 06/01/2024 CBC W Auto Diffe renti al panel - Blood eosinophils/ 100 leukocytes in blood by automated count 3.9 % low: 0%high : 7% Eosin ophil % 3.9 0.0 - 7.0 % 06/01 4:11 AM CDT [facility] Not Available Not Available 12/15/2024 12:44:53 06/01/20 24 06/01/2024 CBC W Auto Diffe renti al panel - Blood basophils/10 0 leukocytes in blood by automated count 0.2 % low: 0%high : 1.6% Basop hil % 0.2 0.0 - 1.6 % 06/01 4:11 AM CDT [facility] Not Available Not Available 12/15/2024 12:44:53 06/01/20 24 06/01/2024 CBC W Auto Diffe renti al panel - Blood immature granulocytes /100 leukocytes in blood by automated count 0.4 % low: 0%high : 1% Immat ure Granu locyt es % 0.4 0.0 - 1.0 % 06/01 4:11 AM CDT [facility] Not Available Not Available 12/15/2024 12:44:53 06/01/20 24 06/01/2024 CBC W Auto Diffe renti al panel - Blood neutrophils [#/volume] in blood by automated count 4.91 text: 1.60 - 7.50 x10e9/ L Neutr ophil Absol sioux 4.91 1.60 - 7.50 x10E9 /L 06/01 4:11 AM CDT [facility] Not Available Not Available 12/15/2024 12:44:53 06/01/20 24 06/01/2024 CBC W Auto Diffe renti al panel - Blood lymphocytes [#/volume] in blood by automated count 2.49 text: 1.00 - 4.40 x10e9/ L Lymph ocyte Absol sioux 2.49 1.00 - 4.40 x10E9 /L 06/01 4:11 AM CDT [facility] Not Available Not Available 12/15/2024 12:44:53 06/01/20 24 06/01/2024 CBC W Auto Diffe renti al panel - Blood monocytes [#/volume] in blood by automated count 0.52 text: 0.15 - 1.00 x10e9/ L Monoc yte Absol sioux 0.52 0.15 - 1.00 x10E9 /L 06/01 4:11 AM CDT [facility] Not Available Not Available 12/15/2024 12:44:53 06/01/20 24 06/01/2024 CBC W Auto Diffe renti al panel - Blood eosinophils [#/volume] in blood 0.32 text: 0.00 - 0.60 x10e9/ L Eosin ophil Absol sioux 0.32 0.00 - 0.60 x10E9 /L 06/01 4:11 AM CDT [facility] Not Available Not Available 12/15/2024 12:44:53 06/01/20 24 06/01/2024 CBC W Auto Diffe renti al panel - Blood basophils [#/volume] in blood by automated count 0.02 text: 0.00 - 0.13 x10e9/ L Basop hil Absol sioux 0.02 0.00 - 0.13 x10E9 /L 06/01 4:11 AM CDT [facility] Not Available Not Available 12/15/2024 12:44:53 06/01/20 24 06/01/2024 CBC W Auto Diffe renti al panel - Blood interpretati on and review of laboratory results Abnorm al Not Available Not Available 12:44:53 06/02/20 24 06/02/2024 Basic metab olic 1999 panel - Serum or Plasm a glucose [mass/volume ] in serum or plasma 99 mg/dL low: 70mg/d Lhigh: 105mg/ dL Gluco se 99 70 - 105 mg/dL 06/02 5:56 AM CDT [facility] Not Available Not Available 12/15/2024 12:44:53 06/02/20 24 06/02/2024 Basic metab olic 1999 panel - Serum or Plasm a sodium [moles/volum e] in serum or plasma 141 mmol/ L low: 136mmo l/Lhig h: 145mmo l/L Sodiu m 141 136 - 145 mmol/ L 06/02 5:56 AM CDT [facility] Not Available Not Available 12/15/2024 12:44:53 06/02/20 24 06/02/2024 Basic metab olic 2000 panel - Serum or Plasm a potassium [moles/volum e] in serum or plasma 3.9 mmol/ L low: 3.5mmo l/Lhig h: 5.1mmo l/L Potas sium 3.9 3.5 - 5.1 mmol/ L 06/02 5:56 AM [facility] Not Available Not Available 12/15/2024 12:44:53 06/02/20 24 06/02/2024 Basic metab olic 2000 panel - Serum or Plasm a chloride [moles/volum e] in serum or plasma 108 mmol/ L low: 98mmol /Lhigh : 107mmo l/L high Chlor clifton 108 (H) 98 - 107 mmol/ L 06/02 5:56 AM [facility] Not Available Not Available 12/15/2024 12:44:53 06/02/20 24 06/02/2024 Basic metab olic 1999 panel - Serum or Plasm a carbon dioxide, total [moles/volum e] in serum or plasma 24 mmol/ L low: 22mmol /Lhigh : 29mmol /L CO2 24 22 - 29 mmol/ L 06/02 5:56 AM [facility] Not Available Not Available 12/15/2024 12:44:53 06/02/20 24 06/02/2024 [employer] olic 1999 panel - Serum or Plasm a calcium [mass/volume ] in serum or plasma 9.1 mg/dL low: 8.4mg/ dLhigh : 10.4mg /dL Calci um 9.1 8.4 - 10.4 mg/dL 06/02 5:56 AM [facility] Not Available Not Available 12/15/2024 12:44:53 06/02/20 24 06/02/2024 Basic metab olic 1999 panel - Serum or Plasm a anion gap in blood 9 mmol/ L low: 6mmol/ Lhigh: 16mmol /L Anion Gap 9 6 - 16 mmol/ L 06/02 5:56 AM [facility] Not Available Not Available 12/15/2024 12:44:53 06/02/20 24 06/02/2024 [employer] olic 2000 panel - Serum or Plasm a urea nitrogen [mass/volume ] in serum or plasma 15 mg/dL low: 5.3mg/ dLhigh : 18.7mg /dL BUN 15 5.3 - 18.7 mg/dL 06/02 5:56 AM CDT [facility] Not Available Not Available 12/15/2024 12:44:53 06/02/20 24 06/02/2024 Basic metab olic 2000 panel - Serum or Plasm a creatinine [mass/volume ] in serum or plasma 0.88 mg/dL low: 0.72mg /dLhig h: 1.25mg /dL Creat inine 0.88 0.72 - 1.25 mg/dL 06/02 5:56 AM CDT [facility] Not Available Not Available 12/15/2024 12:44:53 06/02/20 24 06/02/2024 Basic metab olic 2000 panel - Serum or Plasm a glomerular filtration rate/1.73 sq M.predicted [volume rate/area] in serum, plasma or blood by creatinine-b ased formula (CKD-epi) text: >=90 mL/min /1.73 m2 eGFR by CKD-E PI >90 >=90 mL/mi n/1.7 3 m2 06/02 5:56 AM [facility] Not Available Not Available 12/15/2024 12:44:53 06/02/20 24 06/02/2024 Basic metab olic 2000 panel - Serum or Plasm a interpretati on and review of laboratory results Abnorm al Not Available Not Available 12:44:53 06/02/20 24 06/02/2024 CBC W Auto Diffe renti al panel - Blood leukocytes [#/volume] in blood by automated count 7.3 text: 4.0 - 10.7 x10e9/ L WBC 7.3 4.0 - 10.7 x10E9 /L 06/02 5:40 AM [facility] Not Available Not Available 12/15/2024 12:44:53 06/02/20 24 06/02/2024 CBC W Auto Diffe renti al panel - Blood erythrocytes [#/volume] in blood by automated count 4.75 text: 4.30 - 5.80 x10e12 /L RBC Count 4.75 4.30 - 5.80 x10E1 2/L 06/02 5:40 AM [facility] Not Available Not Available 12/15/2024 12:44:53 06/02/20 24 06/02/2024 CBC W Auto Diffe jesusita al panel - Blood hemoglobin [mass/volume ] in blood 12 g/dL low: 13.3g/ dLhigh : 17.5g/ dL low Hemog lobin 12.0 (L) 13.3 - 17.5 g/dL 06/02 5:40 AM CDT [facility] Not Available Not Available 12/15/2024 12:44:53 06/02/20 24 06/02/2024 CBC W Auto Diffe jesusita al panel - Blood hematocrit [volume fraction] of blood by automated count 37.7 % low: 38.7%h igh: 51.1% low Hemat ocrit 37.7 (L) 38.7 - 51.1 % 06/02 5:40 AM CDT [facility] Not Available Not Available 12/15/2024 12:44:53 06/02/20 24 06/02/2024 CBC W Auto Diffe jesusita silverio panel - Blood MCV [entitic volume] by automated count 79.4 fL low: 80fLhi gh: 98fL low MCV 79.4 (L) 80.0 - 98.0 fL 06/02 5:40 AM CDT [facility] Not Available Not Available 12/15/2024 12:44:53 06/02/20 24 06/02/2024 CBC W Auto Diffe jesusita silverio panel - Blood MCH [entitic mass] by automated count 25.3 pg low: 26.7pg high: 33.6pg low MCH 25.3 (L) 26.7 - 33.6 pg 06/02 5:40 AM CDT [facility] Not Available Not Available 12/15/2024 12:44:53 06/02/20 24 06/02/2024 CBC W Auto Diffe jesusita al panel - Blood MCHC [mass/volume ] by automated count 31.8 g/dL low: 31.7g/ dLhigh : 36.3g/ dL MCHC 31.8 31.7 - 36.3 g/dL 06/02 5:40 AM CDT [facility] Not Available Not Available 12/15/2024 12:44:53 06/02/20 24 06/02/2024 CBC W Auto Diffe renti al panel - Blood erythrocyte distribution width [ratio] by automated count 19.3 % low: 11.3%h igh: 14.8% high RDW-C V 19.3 (H) 11.3 - 14.8 % 06/02 5:40 AM CDT [facility] Not Available Not Available 12/15/2024 12:44:53 06/02/20 24 06/02/2024 CBC W Auto Diffe renti al panel - Blood platelets [#/volume] in blood by automated count 243 text: 150 - 420 x10e9/ L Plate let Count 243 150 - 420 x10E9 /L 06/02 5:40 AM CDT [facility] Not Available Not Available 12/15/2024 12:44:53 06/02/20 24 06/02/2024 CBC W Auto Diffe renti al panel - Blood platelet mean volume [entitic volume] in blood by automated count 8.9 fL low: 7.8fLh igh: 11.4fL MPV 8.9 7.8 - 11.4 fL 06/02 5:40 AM CDT [facility] Not Available Not Available 12/15/2024 12:44:53 06/02/20 24 06/02/2024 CBC W Auto Diffe renti al panel - Blood neutrophils/ 100 leukocytes in blood by automated count 63.3 % low: 41%hig h: 74% Neutr ophil % 63.3 41.0 - 74.0 % 06/02 5:40 AM CDT [facility] Not Available Not Available 12/15/2024 12:44:53 06/02/20 24 06/02/2024 CBC W Auto Diffe renti al panel - Blood lymphocytes/ 100 leukocytes in blood by automated count 28 % low: 17%hig h: 47% Lymph ocyte % 28.0 17.0 - 47.0 % 06/02 5:40 AM CDT [facility] Not Available Not Available 12/15/2024 12:44:53 06/02/20 24 06/02/2024 CBC W Auto Diffe renti al panel - Blood monocytes/10 0 leukocytes in blood by automated count 6.8 % low: 3%high : 11% Monoc yte % 6.8 3.0 - 11.0 % 06/02 5:40 AM CDT [facility] Not Available Not Available 12/15/2024 12:44:53 06/02/20 24 06/02/2024 CBC W Auto Diffe renti al panel - Blood eosinophils/ 100 leukocytes in blood by automated count 1.5 % low: 0%high : 7% Eosin ophil % 1.5 0.0 - 7.0 % 06/02 5:40 AM CDT [facility] Not Available Not Available 12/15/2024 12:44:53 06/02/20 24 06/02/2024 CBC W Auto Diffe renti al panel - Blood basophils/10 0 leukocytes in blood by automated count 0.1 % low: 0%high : 1.6% Basop hil % 0.1 0.0 - 1.6 % 06/02 5:40 AM T [facility] Not Available Not Available 12/15/2024 12:44:53 06/02/20 24 06/02/2024 CBC W Auto Diffe renti al panel - Blood immature granulocytes /100 leukocytes in blood by automated count 0.3 % low: 0%high : 1% Immat ure Granu locyt es % 0.3 0.0 - 1.0 % 06/02 5:40 AM T [facility] Not Available Not Available 12/15/2024 12:44:53 06/02/20 24 06/02/2024 CBC W Auto Diffe renti al panel - Blood neutrophils [#/volume] in blood by automated count 4.64 text: 1.60 - 7.50 x10e9/ L Neutr ophil Absol sioux 4.64 1.60 - 7.50 x10E9 /L 06/02 5:40 AM CDT [facility] Not Available Not Available 12/15/2024 12:44:53 06/02/20 24 06/02/2024 CBC W Auto Diffe renti al panel - Blood lymphocytes [#/volume] in blood by automated count 2.05 text: 1.00 - 4.40 x10e9/ L Lymph ocyte Absol sioux 2.05 1.00 - 4.40 x10E9 /L 06/02 5:40 AM CDT [facility] Not Available Not Available 12/15/2024 12:44:53 06/02/20 24 06/02/2024 CBC W Auto Diffe renti al panel - Blood monocytes [#/volume] in blood by automated count 0.5 text: 0.15 - 1.00 x10e9/ L Monoc yte Absol sioux 0.50 0.15 - 1.00 x10E9 /L 06/02 5:40 AM CDT [facility] Not Available Not Available 12/15/2024 12:44:53 06/02/20 24 06/02/2024 CBC W Auto Diffe renti al panel - Blood eosinophils [#/volume] in blood 0.11 text: 0.00 - 0.60 x10e9/ L Eosin ophil Absol sioux 0.11 0.00 - 0.60 x10E9 /L 06/02 5:40 AM CDT [facility] Not Available Not Available 12/15/2024 12:44:53 06/02/20 24 06/02/2024 CBC W Auto Diffe renti al panel - Blood basophils [#/volume] in blood by automated count 0.01 text: 0.00 - 0.13 x10e9/ L Basop hil Absol sioux 0.01 0.00 - 0.13 x10E9 /L 06/02 5:40 AM CDT [facility] Not Available Not Available 12/15/2024 12:44:53 06/02/20 24 06/02/2024 CBC W Auto Diffe renti al panel - Blood interpretati on and review of laboratory results Abnorm al Not Available Not Available 12:44:53 06/18/20 24 06/18/2024 CT, abdom en + pelvi s, w/ contr ast No observ [facility]ion [facility] ed[facility] [address] [place] [address], [place], [id number], 06/23/2024 10:55:18 06/18/20 24 06/18/2024 XR, chest , 1 view No observ ation record ed. [facility] [address] [place] [address], [id number], 06/23/2024 10:55:38 06/18/20 24 06/18/2024 CT, abdom en + pelvi s, w/ contr ast No observ ation record ed. [facility] [address] [place] [address], [id number], 06/23/2024 10:56:55 06/19/20 24 06/19/2024 CT, chest , w/o contr ast No observ ation record ed. [facility] [address] [place] [address], [place], [id number], 06/23/2024 10:57:28 07/04/20 24 07/04/2024 CT, abdom en + pelvi s, w/ contr ast No observ ation record ed. [facility] [address] [place] [address], [id number], 07/05/2024 11:16:52 07/04/20 24 07/04/2024 XR, chest , 1 view No observ ation record ed. [facility] [address] [place] [address], [place], [id number], 07/05/2024 07:02:29 07/15/20 24 07/15/2024 CT, abdom en + pelvi s, w/ contr ast No observ ation record ed. [facility] [address] [place] [address], [id number], 07/18/2024 09:41:41 07/17/20 24 07/17/2024 CT, abdom en + pelvi s, w/o contr ast No observ ation record ed. [facility] [address] [place] [address], [id number], 07/18/2024 09:46:31 07/17/20 24 07/17/2024 XR, chest , 1 view No observ ation record ed. [facility] [address], [place], [address], 07/18/2024 09:35:28 Result Notes None recorded. 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 Martita Justice NP Attn: Accounting ,[address] [facility], [place], [address] , [facility] - [facility] 4 07:42:14 Hypomagnesemi a 723026798 Active 2024 Martita Justice NP Attn: Accounting ,[address] [facility], [place], [address] , [facility] - [facility] 5 07:08:19 Iron deficiency anemia 28293294 Active 2024 Martita Justice NP Attn: Accounting ,[address] [facility] [facility], [place], [address] , [facility] - [facility] 5 07:08:21 Vitamin D deficiency 97495283 Active 2024 Martita Justice NP Attn: Accounting ,[address] [place], [address] , [facility] - [facility] 5 07:08:26 Essential hypertension 64913633 Active 2024 Jessica Smith LPN null, [place] - [facility] 5 10:52:29 Problem Notes None recorded. Procedures Surgical History Date Name Laterality Status Provider Name and Address Organization Details Recorded Time 4 operative procedure on large intestine completed Ashley Araujo MA [place] - [place] 09/01/2023 12:06:09 Imaging Results Imaging Date Name Status LastModified by Organiz ation Details LastModified Time 06/18/2024 CT, abdomen + pelvis, w/ contrast completed [facility] [address], [place], [id number], 06/23/2024 10:55:18 06/18/2024 XR, chest, 1 view completed [facility] [address] [facility] [place], [id number], 06/23/2024 10:55:38 06/18/2024 CT, abdomen + pelvis, w/ contrast completed [facility] [address] [facility] [place], [address], 06/23/2024 10:56:55 06/19/2024 CT, chest, w/o contrast completed [facility] [address] [facility] [place], [address], 06/23/2024 10:57:28 07/04/2024 CT, abdomen + pelvis, w/ contrast completed [facility] [address] [place], [address], 07/05/2024 11:16:52 07/04/2024 XR, chest, 1 view completed [facility] [address] [facility] [place], [address], 07/05/2024 07:02:29 07/15/2024 CT, abdomen + pelvis, w/ contrast completed [facility] [address], [place], [address], 07/18/2024 09:41:41 07/17/2024 CT, abdomen + pelvis, w/o contrast completed [facility] [address], [place], [address], 07/18/2024 09:46:31 07/17/2024 XR, chest, 1 view completed [facility] [address] [place] [address], [id number], 07/18/2024 09:35:28 Procedure Notes None recorded. Medical Equipment None Reported. Allergies Allergen ID Allergen Name Allergen Category Reaction Reaction Severity Criticality Documentation Date Start Date Code Code System Note Provider Name and Address Organization Details Recorded Time 217693 amoxicill in medicatio n rash Not available Not available 09/01/2023 723 RxNorm Not Available Not Available Not Available Medications Name Sig Start Date Stop Date Status Note LastModified by Organization Details LastModified Time losartan 50 mg tablet TAKE 1 TABLET EVERY DAY BY MOUTH DIRECTED FOR 30 DAYS, FOR HTN. 2024 active Not Available Not Available Not Avai lable acetamino phen 325 mg tablet 09/02 completed Not Available Not Available Not Available prednison e 10 mg tablet TAKE 2 TABS BY MOUTH DAILY FOR 10 DAYS, 1 FOR 5 DAYS, 1/2 FOR 5 DAYS, THEN STOP. 06/29 completed Not Available Not Available Not Available loperamid e 2 mg capsule TAKE 1 (ONE) TABLET BY MOUTH 4 TIMES DAILY NEEDED CROHN'S DISEASE, DIARRHEA 09/02 completed Not Available Not Available Not Available hydrocodo ne 5 mg-acetam inophen 325 mg tablet TAKE 1 TABLET ORAL ROUTE EVERY 6 HOURS NEEDED 09/02 completed Not Available Not Available Not Available prednison e 20 mg tablet TAKE 3 (THREE) TABLETS BY MOUTH ONCE DAILY FOR 30 DAYS 09/02 completed Not Available Not Available Not Available gabapenti n 400 mg capsule 1 cap q 8 hrs active Not Available Not Available No t Available prednison e 5 mg tablet 12/16 completed Not Available Not Available Not Available diphenoxy late-atro pine 2.5 mg-0.025 mg tablet TAKE 1 TABLET BY MOUTH FOUR TIMES A DAY NEEDED FOR DIARRHEA AND CROHN'S 09/02 completed Not Available Not Available Not Available metronida zole 500 mg tablet TAKE 1 TABLET BY MOUTH THREE TIMES A DAY 06/29 completed Not Available Not Available Not Available azathiopr ine 50 mg tablet TAKE 1 TABLET BY MOUTH EVERY DAY active Not Available Not Available No t Available ciproflox acin 500 mg tablet 09/02 completed Not Available Not Available Not Available acetamino phen 500 mg tablet active Not Available Not Available No t Available triamcino lone acetonide 0.1 % topical cream APPLY THIN COAT TO AFFECTED AREA TWICE A DAY 12/16 completed Not Available Not Available Not Available vancomyci n 125 mg capsule 06/29 completed Not Available Not Available Not Available ondansetr on 8 mg disintegr ating tablet DISSOLVE 1 TABLET ON TOP OF TONGUE THEN SWALLOW EVERY 8 HOURS NEEDED FOR NAUSEA OR VOMITING 12/16 completed Not Available Not Available Not Available lidocaine -prilocai ne 2.5 %-2.5 % topical cream APPLY A QUARTER SIZE AMOUNT TO PORT SITE 30 MINUTES BEFORE ACCESS. PA REQUIRED 12/16 completed Not Available Not Available Not Available oxycodone -acetamin ophen 5 mg-325 mg tablet TAKE 1 TABLET BY MOUTH EVERY 4-6 HOURS NEEDED FOR PAIN 12/16 completed Not Available Not Available Not Available magnesium oxide 400 mg (241.3 mg magnesium ) tablet Take 1 tablet every day by oral route. 12/16 completed Not Available Not Available Not Available trazodone 100 mg tablet TAKE 1 TABLET BY MOUTH EVERY DAY AT BEDTIME FOR 30 DAYS active Not Available Not Available No t Available dicyclomi ne 20 mg tablet TAKE 1 TABLET BY MOUTH FOUR TIMES A DAY 09/02 completed Not Available Not Available Not Available pantopraz ole 40 mg tablet,de layed release TAKE 1 TABLET BY MOUTH EVERY DAY IN THE MORNING active Not Available Not Available No t Available ferrous sulfate 325 mg (65 mg iron) tablet TAKE 1 TABLET BY MOUTH EVERY DAY active Not Available Not Available No t Available promethaz ine 25 mg tablet TAKE 1 TABLET ORAL ROUTE EVERY 6 HOURS NEEDED 09/02 completed Not Available Not Available Not Available losartan 25 mg tablet TAKE 2 TABLET EVERY DAY BY ORAL ROUTE DIRECTED FOR 30 DAYS, FOR BLOOD PRESSURE . active Not Available Not Available No t Available gabapenti n 300 mg capsule TAKE 1 CAPSULE BY MOUTH AT NIGHT 09/02 completed Not Available Not Available Not Available mupirocin 2 % topical ointment 12/16 completed Not Available Not Available Not Available levofloxa jay 500 mg tablet TAKE 1 TABLET BY MOUTH EVERY DAY 05/19 completed Not Available Not Available Not Available hydroxyzi ne HCl 10 mg tablet 12/16 completed Not Available Not Available Not Available oxycodone 5 mg tablet 09/02 completed Not Available Not Available Not Available cholecalc iferol (vitamin D3) OTC active Not Available Not Available Not Available Stelara 90 mg/mL subcutane ous syringe Inject 90 mL every 2 months by subcutan eous route. 05/19 completed Not Available Not Available Not Available Dificid 200 mg tablet 09/02 completed Not Available Not Available Not Available Skyrizi 360 mg/2.4 mL (150 mg/mL) subcutane ous wearable injector 06/[address] Flores Not Available Not Available Not Available Vitals Date Recorded Body height Body mass index (BMI) Body weight Oxygen saturation Oxygen saturation in Arterial blood by Pulse oximetry Pain severity - 0-10 verbal numeric rating [Score] - Reported Heart rate Body temperature Systolic blood pressure Diastolic blood pressure Provider Name and Address Organization Details Last Updated DateTime 4 186.69 cm 24.6 kg/m2 99247.9 6 g 97 % 97 % 0 63 /min 98.4 [degF] 126 mm[Hg] 79 mm[Hg] Ashley Araujo MA [place] - [facility] 4 11:49:15 Date Recorded Body height Body mass index (BMI) Body weight Body temperature Pain severity - 0-10 verbal numeric rating [Score] - Reported Oxygen saturation Oxygen saturation in Arterial blood by Pulse oximetry Heart rate Systolic blood pressure Diastolic blood pressure Provider Name and Address Organization Details Last Updated DateTime 4 186.69 cm 24.5 kg/m2 14382.3 7 g 98.1 [degF] 2 97 % 97 % 77 /min 117 mm[Hg] 78 mm[Hg] Ashley Araujo MA [place] - [facility] 4 12:30:19 Date Recorded Body height Body mass index (BMI) Body weight Oxygen saturation Oxygen saturation in Arterial blood by Pulse oximetry Heart rate Body temperature Systolic blood pressure Diastolic blood pressure Provider Name and Address Organization Details Last Updated DateTime 5 186.69 cm 27.1 kg/m2 56476.2 1 g 98 % 98 % 75 /min 97.5 [degF] 159 mm[Hg] 120 mm[Hg] Ratna Selby MA [place] - [facility] 5 11:18:34 Date Recorded Body height Heart rate Systolic blood pressure Diastolic blood pressure Provider Name and Address Organization Details Last Updated DateTime 12/19/2024 186.69 cm 69 /min 153 mm[Hg] 99 mm[Hg] Jesenia Smith LPN [facility] 12/19/2024 10:19:23 Date Recorded Body height Systolic blood pressure Diastolic blood pressure Provider Name and Address Organization Details Last Updated DateTime 01/05/2025 186.69 cm 128 mm[Hg] 89 mm[Hg] Ratna Selby MA [place] - [facility] 01/05/2025 11:31:11 Social History Question Answer Notes LastModified by Organizat ion Details LastModified Time Tobacco Smoking Status Never Smoker Ashley Araujo MA null, [place] - [facility] 09/01/2023 12:03:08 Do You Have An Advance Directive? No Information not available 09/01/2023 What Is Your Level Of Alcohol Consumption? None Information not available 09/01/2023 Are You Blind Or Do You Have Difficulty Seeing? Yes Wdears Glasses Information not available 09/01/2023 What Is Your Level Of Caffeine Consumption? Occasional Information not available 09/01/2023 In The 14 Days Before Symptom Onset, Have You Had Close Contact With A Laboratory-confir med COVID-19 While That Case Was Ill? No Information not available 09/01/2023 In The 14 Days Before Symptom Onset, Have You Had Close Contact With A Person Who Is Under Investigation For COVID-19 While That Person Was Ill? No Information not available 09/01/2023 Have You Been To An Area Known To Be High Risk For COVID-19? No Information not available 09/01/2023 Are You Currently Employed? Yes Information not available 09/01/2023 Are You Deaf Or Do You Have Serious Difficulty Hearing? No Information not available 09/01/2023 What Type Of Diet Are You Following? REGULAR Information not available 09/01/2023 Are There Any Guns Present In Your Home? No Information not available 09/01/2023 What Was The Date Of Your Most Recent Tobacco Screening? 12/16/2024 Information not available 12/16/2024 How Many Children Do You Have? 0 Information not available 09/01/2023 What Is Your Relationship Status? Single Information not available 09/01/2023 Do You Use Your Seat Belt Or Car Seat Routinely? Yes Information not available 09/01/2023 Are You Sexually Active? No Information not available 09/01/2023 Do You Have Smoke And Carbon Monoxide Detectors In Your Home? Yes Information not available 09/01/2023 Are You Passively Exposed To Smoke? No Information no t available 09/01/2023 Do You Feel Stressed (tense, Restless, Nervous, Or Anxious, Or Unable To Sleep At Night)? [id number] Information not available 09/01/2023 Do You Use Any Illicit Or Recreational Drugs? No Information not available 09/01/2023 Do You Use Sunscreen Routinely? No Information not available 09/01/2023 Has Tobacco Cessation Counseling Been Provided? Yes Information not available 12/16/2024 On What Date Was Tobacco Cessation Counseling Provided? 12/16/2024 Information not available 12/16/2024 Do You Or Have You Ever Used Any Other Forms Of Tobacco Or Nicotine? No Information not available 09/01/2023 Sex: Male Functional Status Question Answer Note LastModified by Organizat ion Details LastModified Time Are you able to care for yourself? Yes Information not available 09/01/2023 What is your exercise level? Occasional Information not available 09/01/2023 Mental Status None recorded. Family History Relationship Description Onset Age of this Age Resolved Age Notes LastModified by Organization Details LastModified Time Father Neoplasm of lung Not available 09/01 12:02:17 Paternal Grandmother Neoplasm of lung Not available 09/01 12:02:17 Medical History Condition Response Coronary Artery Disease N Other N High Blood Pressure N Atrial Fibrillation N Thyroid Problems N Kidney or Bladder Problems N GI Problems Y Depression N COPD N Blood Clots N Skin Problems Y Eating Disorder N Anemia N Heart Attack (NE) N Anxiety Disorder N Diabetes N Muscle, Joint, or Bone Problems N Seizures/Epilepsy N Acid Reflux (GERD) N Cancer N Stroke N Asthma N Allergies N ADHD N Substance Abuse N High Cholesterol N Hepatitis N Liver Disease N Schizophrenia N Headaches N Heart Failure N Osteoporosis N Past Encounters Encounter ID Performer Location Encounter Start Date Encounter Closed Date Diagnosis/Indication Diagnosis SNOMED-CT Code Diagnosis ICD10 Code Diagnosis Note [id number] Martita Justice NP [facility] [address] [place] [address] 09/01/2023 11:31:21 09/02/2023 12:51:21 Patient new to provider [id number] 82330 Z76.89 New Patient. Condition Stable . Meds and present history reviewed . Refill meds as needed. Obtained old record if available. Education done. Follow up appointmen t scheduled. Crohn's disease 02162499 K50.90 [facility] -[facility]erral to GI for further management Obesity 256004068 E66.9 Discussed BMI - 32.5Advise d decreased portion sizes, good food choices, limited eating out or fast food and eliminate soda and juice from diet.Advis ed physical activity daily HIV screen ing declined [id number] 69544 Z53.20 Declines at this time Atopic khushi matitis of bilateral hands 816018103 L20.9 Bilateral hands- Instructed to discontinu e lotion and only apply topical emollient after bathing. No hot shower/bat h and avoid excessive heat. Will send in rx for triamcinol one cream for use on effected areas. Instructed to apply twice daily for 2-4 weeks. F/u in 3-4 weeks. Adult [facility] examination 929207150 Z00.00 Discussed with patient clinical finding and diagnosis. Discussed plan of care including treatment options, risks, and benefits with patients.P atient expressed understand ing.The following interventi ons were recommende d: heart healthy low-fat, low-sodium diet, ideal body weight, regular exercise, medication s compliance , and medical follow-up as noted. [id number] Martita Justice NP [facility] [address] 05/19/2024 11:57:19 05/20/2024 07:12:28 Hospital inpatient stay within past 30 days [id number] 106 Z76.89 Discussed ER/Hospita l follow up visit 05/05/24 -Reviewed Labs/Radio logy -Reviewed Medication s -Reviewed Plan of care and follow up Crohn's disease 28945013 K50.90 Sees GI specialty routinely - Dr. Roseann Flores - who was managing GI careLarge intestine removed in pastContin ues Skyrizi injection therapy but does not work & diphenoxyl ate-atroph ine prn - prescribed by specialty - but unable to get ahold of Rectal hem orrhage due to Crohn's disease [id number] 160788 K50.911 resolved Overweight 585505727 E66 .3 Discussed BMI - 27.9Advise d decreased portion sizes, good food choices, limited eating out or fast food and eliminate soda and juice from diet.Advis ed physical activity daily [id number] Martita Justice NP [address] [address] 06/29/2024 11:31:37 06/30/2024 08:06:05 Crohn's disease 94554444 K50.90 Saw new GI in [facility] APRNMedica tion changes - Imodium and lomotil PRN Continues prednisone Starting ImuranHas appointmen t July @ [place] UDiscussed weight loss today and small frequent meals avoiding - fruits and vegetables that effect GI also discussed supplement al drinks to help with calorie and nutrition intakeF/U 4 weeks weight check - discussed at least 2# weight gain [id number] Martita Justice NP [address] [address] 09/02/2024 12:00:28 09/05/2024 10:07:41 Crohn's disease 66627100 K50.818 sees gi and oncology Hospital i npatient stay within past 30 days [id number] 106 Z76.89 Discussed ER/Hospita l follow up visit - Crohns, cdiff & -15 SBO, 07-18 /-8 flex sig- rectal mass - cancer, 07-28 completion proctectom y with end ileostomy due to rectal cancer. Concern for lungFollow ed by specialtie s- GI, general sx, oncology team with navigator* * Port placement 09/[address] Soler^^^Ch emo education - ideally on 09/06 & 09/08- Start FOLFOX/shelbie stin 09/06/24 - hold avastin with cycle 1 due to recent port placementS ee Dr. Lopez again 09/08-Thu Labs/Radio logy-Thu Medication s-Reviewed Plan of care and follow up Malignant tumor of rectum 959182293 C20 Chemo starts 09/06/2024F ollow-up with oncology on 09/08/2024 Ileostomy present 383974 002 Z93.2 Surgery sent all supplies that were needed [id number] Martita Justice NP [facility] [address] [place] [address] 12/16/2024 10:40:28 12/19/2024 07:31:11 Malignant tumor of rectum 881689311 C20 Continues with specialty & treatments Crohn's disease 10793136 K50.818 Followed closely by GI and Oncology Ileostomy present 699247 002 Z93.2 Doing wellGets supplies from specialty Adult heal th examination 290988886 Z00.00 Discussed with patient clinical finding and diagnosis. Discussed plan of care including treatment options, risks, and benefits with patients.P atient expressed understand ing.The following interventi ons were recommende d: heart healthy low-fat, low-sodium diet, ideal body weight, regular exercise, medication s compliance , and medical follow-up as noted. Vitamin D deficiency 347 58827 E55.9 hxVit D lab Hypomagnesemia 165317772 E83.42 hx ofContinue s current supplement Managed by specialty Iron defic iency anemia 96997900 D50.9 hx ofContinue s current supplement Managed by specialty Overweight 980110206 Z68 .27 BMI 27.1Advise d decreased portion sizes, good food choices, limited eating out or fast food and eliminate soda and juice from diet.Advis ed physical activity daily Essential hypertension 72771906 I10 High in officeStar ting Losartan 25mg daily- Pt Blood pressure goals discussed - Pt to avoid a diet high salt - Pt to check b/p 2 weeks to see if increase is neededDisc ussed red flag symptoms and to go to ER Insomnia 259038626 G47.0 0 [id number] Jessica Smith LPN [facility] [address] [place] [address] 12/19/2024 10:12:19 12/20/2024 08:10:35 Essential hypertension 21039293 I10 High in officeLosa rtan 50mg daily- Pt Blood pressure goals discussed- Pt to avoid a diet high salt- Pt to check b/p 2 weeks to see if increase is neededDisc ussed red flag symptoms and to go to ER [id number] Ratna KIET [place] [facility] [address] [place] [address] 01/05/2025 10:24:15 01/06/2025 07:34:40 Essential hypertension 93505627 I10 128/89 in officeLosa rtan 50mg daily- Pt Blood pressure goals discussed- Pt to avoid a diet high salt- Pt to check b/p 2 weeks to see if increase is neededDisc ussed red flag symptoms and to go to ER Health Concerns Section Related Observation LastModified by Organization Detai ls LastModified Time None Recorded Concern Status LastModified by Organization Details LastModified Time None Recorded Advance Directives Directive N: Payers Encounter Date Sequence Insurance Name Policy Number Policy Fernandez Covered Member ID Fernandez Member ID Guarantor Name 06/29/2024 1 [facility] (MEDICAID HMO) [id number] 0003 Sever[facility] [id number] Severiano [place] 09/02/2024 1 [facility] (MEDICAID HMO) [id number] 0003 [facility] [id number] Severiano Brogan 12/16/2024 1 [facility] (MEDICAID HMO) [id number] 0003 Severiano [facility] [id number] Severiano [place] 12/19/2024 1 [facility] (MEDICAID HMO) [id number] 0003 [facility] [id number] Severiano Anant 01/05/2025 1 [facility] (MEDICAID HMO) [id number] 0003 Severiano [facility] [id number] Severiano Brogan Notes Date Note Type Note Provider Name and Address Organization Details Recorded Time 06/29/2024 text/html Pt presents toda y for a 1 month f/u on Crohns.Since being here on 05/19/2024 he has been in ER twice and [place] ER once.Has seen GI COUNTER CLERK [employer] Eleazar Pinto at [facility] in [place] on 06/20/2024 who started 3 new meds, d/c skyrizi and discussed getting him off of steroid therapy and starting infusions.Has another appt at [facility] with another specialty in July.Pt has had no appetite in last 2 days and since last appt here on 05/19/2024 has lost 25 pounds.Currently not having any abdominal pain.Pt denies chest pain, SOB and edema Martita Justice NP Attn: Accounting, [address] [facility], [place], [address], [facility] 06/29/2024 15:07:21 09/02/2024 text/html Pt presents toda y for a [facility] f/u from 07/17/2024 - 4Dx with rectal cancer and ostomy surgery done on 07/28/2024.Pt had outpatient surgery port placed on 09/01/2024Will start seeing oncologist Rama Stockton for chemo and radiation on 09/06/2024t is starting to gain weight.Pt states right shoulder pain where port is is a 2 at this time.Pt denies chest pain, SOB and edema Martita Justice NP Attn: Accounting, [address] [facility], [place], [address], [place] - [facility] 09/02/2024 13:06:08 12/16/2024 text/html Pt here with dad for annual examPts dad would like to discuss medicationsPt states that he has had high blood pressure for 2 weeks 159/120 todayPt denies chest pain, SOB, and edema Martita Justice NP Attn: Accounting,[address] [facility] [facility], [place], [address], [facility] 12/18/2024 22:28:44
--- OUTSIDE RECORDS SUMMARY | 2025-02-21 09:32 | XMS_ITS | Referral Summary ---
Author Organization [facility] Address [address] [place] [address] Care Team Providers Care Scow Hand Name Role Phone Martita Justice NP Primary Care Provider + Encounters Date Type Department Care Team Description 01/19/2025 Telephone [facility] [address] [facility] [address]th [place] [address] [place] [address] Stacy Rizzo CPhT 01/10/2025 8:20 AM CDT Office Visit [facility] [address] [place] [address] Marta Jordan MD Crohn's disease without complication, unspecified gastrointestinal tract location (HCC) (Primary Dx) from Last 3 Months Allergies Active Allergy Reactions Criticality Noted Date Comments Amoxicillin Rash High 08/15/2014 AMOXICILLIN: skin rash - Converted from [facility] Medications magnesium oxide (MAG-OX) 400 mg (241.3 mg elemental magnesium) tablet Take 1 tablet (400 mg total) by mouth daily 08/10/2024 Active ferrous sulfate 325 mg (65 mg of elemental iron) tablet Take 1 tablet (325 mg total) by mouth daily 08/10/2024 Active acetaminophen (TYLENOL) 325 mg tablet Take 2 tablets (650 mg total) by mouth every 6 (six) hours as needed 06/02/2024 Active hydrOXYzine (ATARAX) 10 mg tablet Take 1 tablet (10 mg total) by mouth every 6 (six) hours as needed 08/09/2024 Active traZODone (DESYREL) 100 mg tablet Take 1 tablet (100 mg total) by mouth daily 08/09/2024 Active losartan (COZAAR) 50 mg tablet Take 1 tablet (50 mg total) by mouth daily Active Active Problems Problem Noted Date Diagnosed Date Rectal cancer 08/24/2024 Cancer Staging:Clinical: cT3, cN2b - Signed by Marta Jordan MD on 08/24/2024 Crohn's disease of both smal l and large intestine with other complication 07/25/2024 Overview (08/24/2024): Year of diagnosis: 2014 Phenotype: Stricturing (B2) with perianal disease. Distribution: ileocolonic (L3) without upper GI disease (L4). Extraintestinal manifestations: none. Complications: rectal stricture. Prior treatments: IFX, Stelara, Aleyrizalirio Prior surgeries: s/p total colectomy with ileorectal anastomosis. Colonoscopy 10/22/2023 showed chronic inflammation. Flex sig 04/2024- stricture with pinpoint opening referred to [facility] for ongoing care Flex sig 07/2024- rectal cancer 07/28/2024: completion proctectomy with end ileostomy due to rectal cancer. Social History Tobacco Use Types Packs/Day Years Used Date Smoking Tobacco: Never Passive Smoke Exposure: Never Smokeless Tobacco: Never AUDIT-C Answer Date Recorded Q1: How often do you have a drink containing alcohol? Never 01/10/2025 Q2: How many drinks containi ng alcohol do you have on a typical day when you are drinking? Patient does not drink Frequency of Binge Drinking Not on file 12/31 Sex and Gender Information Value Date Recorded Sex Assigned at Not on file Legal Sex Male 12:26 PM CDT Gender Identity Not on file Sexual Orientation Not on file Last Filed Vital Signs Vital Sign Reading Time Taken Comments Blood Pressure 165/93 01/10/2025 8:15 AM CDT Pulse 87 01/10/2025 8:15 AM CDT Temperature 36.8 C (98.3 F) 01/10/2025 8:15 AM CDT Respiratory Rate - - Oxygen Saturation 96% 01/10/2025 8:15 AM CDT Inhaled Oxygen Concentration - - Weight 94.6 kg (208 lb 8 oz) 01/10/2025 8:15 AM CDT Height 185.4 cm (6' 1 ) 01/10/2025 8:15 AM CDT Body Mass Index 27.51 01/10/2025 8:15 AM CDT Plan of Treatment Not on file Insurance [facility] Member Subscriber Plan / Payer ( fective 2024-Present) Name:Ajay Nyley Relation to Subscriber:Self Name:Severiano Ny Payer ID:[id number] (NAIC) Group ID:Not on file Type:MEDICAID RISK OTHER Address: [place] [id number] [facility] Care Teams Scow Hand Relationship Specialty Start Date End Date Martita Justice NP [address] [place] [address] PCP - General Nurse Practitioner 06/19/24
--- OUTSIDE RECORDS SUMMARY | 2025-02-21 09:32 | XMS_ITS | Clinical Summary ---
Author Organization [facility] Address [address] [place] [address] Care Team Providers Care Waffle Machine Operator Name Role Phone Christina Joseph PA-C Primary Care Provider Source Comments [facility],non-owned Affiliates and Associated Physician Practices is amultiple site organization consisting of ambulatory clinics and hospital sitesin [place], [place], [place] and [place]. This disclosure is being madepursuant to the Care Everywhere program and may not contain all information available regarding this patient. Last updated 18.[facility] Allergies Active Allergy Reactions Criticality Noted Date Comments Amoxicillin Rash Medium 05/26/2024 Medications * Be aware that medications may not be up to date on this document. Alwaysverify current medications with the patient. acetaminophen (Tylenol) 325 MG tablet Take 2 (two) tablets by mouth every 6 hours as needed Maximum allowable Acetaminophen amount = 4 Grams (4000 mg) / 24 hours. 30 tablet 06/02/20 24 Active diphenoxylate-atrop ine (Lomotil) 2.5-0.025 MG tabletIndications:C rohn's Disease,Diarrhea Take 1 (one) tablet by mouth 4 times daily as needed for Diarrhea Reasons: Crohn's Disease, Diarrhea 120 tablet 1 06/20/20 24 Active Loperamide (Imodium) 2 MG tabletIndications:C rohn's Disease,Diarrhea Take 1 (one) tablet by mouth 4 times daily as needed for Diarrhea Reasons: Crohn's Disease, Diarrhea 60 tablet 5 06/20/20 24 Active predniSONE (Deltasone) 20 MG tabletIndications:C rohn's disease with complication, unspecified gastrointestinal tract location (HCC),Rectal bleeding,History of colectomy,Hematoche keith Take 3 (three) tablets by mouth once daily for 30 days 90 tablet 07/01/20 24 Active pantoprazole EC (Protonix) 40 MG tablet TAKE 1 TABLET BY MOUTH ONCE DAILY 30 tablet 06/02/20 24 025 Active vancomycin (Vancocin) 125 MG capsule TAKE 1 CAPSULE BY MOUTH FOUR TIMES DAILY FOR 5 DAYS 20 capsule 06/02/20 24 025 Active loperamide (Imodium) 2 MG capsule TAKE 1 CAPSULE BY MOUTH FOUR TIMES DAILY NEEDED FOR DIARRHEA 30 capsule 06/02/20 24 025 Active azaTHIOprine (Imuran) 50 MG tabletIndications:C rohn's disease with complication, unspecified gastrointestinal tract location (HCC) Take 1 (one) tablet by mouth once daily 30 tablet 6 12/07/19 25 Active Active Problems Problem Noted Date Diagnosed Date Pneumomediastinum 06/18/2024 Rectal bleeding 06/18/2024 Crohn's disease with complic ation, unspecified gastrointestinal tract location 05/26/2024 Encounters Date Type Department Care Team Description 12/07/2024 Refill [facility] [place] [address] Eric Jaeger MD MEDICATION REFILL from Last 3 Months Social History Tobacco Use Types Packs/Day Years Used Date Smoking Tobacco: Never Smokeless Tobacco: Never Tobacco Cessation:Counseling Given: Not Answered Alcohol Use Standard Drinks/Week Comments Never 0 (1 standard drink = 0.6 oz pur e alcohol) AUDIT-C Answer Date Recorded Q1: How often do you have a drink containing alcohol? Never 05/27/2024 Q2: How many drinks containi ng alcohol do you have on a typical day when you are drinking? Patient does not drink Q3: How often do you have si x or more drinks on one occasion? Never 05/27/2024 Overall Financial Resource Strain (CARDIA) Answe r Date Recorded How hard is it for you to pa y for the very basics like food, housing, medical care, and heating? Not very hard 05/27/2024 [facility] Occupat ional Health - Occupational Stress Questionnaire Answer Date Recorded Do you feel stress - tense, restless, nervous, or anxious, or unable to sleep at night because your mind is troubled all the time - these days? Not at all 05/27/2024 Hunger Vital Sign Answer Date Recorded Within the past 12 months, y ou worried that your food would run out before you got the money to buy more. Never true 05/27/20 24 Within the past 12 months, t he food you bought just didn't last and you didn't have money to get more. Never true 05/27/2024 PRAPARE - Transportation Answer Date Re corded In the past 12 months, has l ack of transportation kept you from medical appointments or from getting medications? No 05/03 In the past 12 months, has l ack of transportation kept you from meetings, work, or from getting things needed for daily living? No 05/27/2024 Housing Stability Vital Sign Answer Jamin e Recorded In the last 12 months, was t here a time when you were not able to pay the mortgage or rent on time? No 05/27/2024 In the last 12 months, how many places have you lived? 1 05/27/2024 In the last 12 months, was t here a time when you did not have a steady place to sleep or slept in a detention (including now)? No 05/27/2024 Sex and Gender Information Value Date Recorded Sex Assigned at Not on file Legal Sex Male 11:36 AM CDT Gender Identity Not on file Sexual Orientation Not on file Last Filed Vital Signs Vital Sign Reading Time Taken Comments Blood Pressure 138/74 06/20/2024 12:57 PM CDT Pulse 64 06/18/2024 2:09 PM CDT Temperature 36.4 C (97.6 F) 06/18/2024 2:10 PM CDT Respiratory Rate 16 06/18/2024 2:09 PM CDT Oxygen Saturation 97% 06/18/2024 2:09 PM CDT Inhaled Oxygen Concentration - - Weight 88.7 kg (195 lb 9.3 oz) 06/20/2024 12:57 PM CDT Height 185.4 cm (6' 1 ) 06/20/2024 12:57 PM CDT Body Mass Index 25.8 06/20/2024 12:57 PM CDT Plan of Treatment Health Maintenance Due Date Last Done Comments COVID-19 VACCINE (#1) 1999 HIV SCREENING 2009 HEPATITIS C SCREENING 02/04/2012 DTAP/TDAP/TD VACCINES (1 - Tdap) 2013 HEPATITIS B VACCINE (1 of 3 - 19+ 3-dose series) 2013 PNEUMOCOCCAL VACCINE (1 of 2 - PCV) 2013 ZOSTER VACCINE (1 of 2) 2013 DEPRESSION SCREENING 11/02/2024 INFLUENZA VACCINE (Season Ended) 2025 09/04/2014, 09/02/2011 HIB VACCINE Aged Out No longer eligi ble based on patient's age to complete this topic HPV VACCINE Aged Out No longer eligi ble based on patient's age to complete this topic MENINGOCOCCAL (Group B) VACCINE SHARED DECISION-MAKING Aged Out No longer eligible based on patient's age to complete this topic MENINGOCOCCAL GROUPS A/C/Y/W VACCINE Aged Out No longer eligible b ased on patient's age to complete this topic Additional Health Concerns Infection Onset Date Last Indicated C DIFF 05/27/2024 05/27/2024 Insurance Advance Directives * Full Code (Latest Code Status on File) Date Activated Date Inactivated Comments 05/26/2024 8:13 PM 06/02/2024 3:26 PM Care Teams Waffle Machine Operator Relationship Specialty Start Date End Date Christina Joseph PA-C [address] [place] [address] PCP - General Physician Manufacturing Shift Supervisor 05/26/24
--- OUTSIDE RECORDS SUMMARY | 2025-02-21 09:32 | XMS_ITS | Clinical Summary ---
Author Organization [facility] Address [facility] [place] [address] Care Team Providers Care Silo Man Name Role Phone Martita Justice NP Primary Care Provider + Allergies Active Allergy Reactions Criticality Noted Date [...] Complications: rectal stricture. Prior treatments: IFX, Stelara, Skyrizi Prior surgeries: s/p total colectomy with ileorectal anastomosis. Colonoscopy 10/22/2023 showed chronic inflammation. Flex sig 04/2024- stricture with pinpoint opening referred to [facility] care Flex sig 07/2024- rectal cancer 07/28/2024: completion proctectomy with end ileostomy due to rectal cancer. Encounters Date Type Department Care Team Description 01/19/2025 Telephone [facility] Gastroenterology [address] [facility] 12th [place] [address] [place] [address] Stacy Rizzo CPhT 01/10/2025 8:20 AM CDT Office Visit [facility] Gastroenterology [address] [facility] 2nd Floor [address] [place] [address] Marta Jordan MD Crohn's disease without complication, unspecified gastrointestinal tract location (HCC) (Primary Dx) from Last 3 Months Surgical History Surgery Date Site/Laterality Comments TOTAL COLECTOMY COLECTOMY Medical History Medical History Date Comments Crohn's disease (HCC) Rectal cancer metastasized to intra-abdominal ly mph node (HCC) 07/2024 T3 N2b Mx. Social History Tobacco Use Types Packs/Day Years [...] on file Sexual Orientation Not on file Obstetrics History Last Filed Vital Signs Vital Sign Reading [...] 01/10/2025 8:15 AM CDT Plan of Treatment Health Maintenance Due Date Last Done Comments Depression Screening 1994 Hepatitis C Screening 1994 Varicella Vaccines (1 of 2 - 13+ 2-dose series) 2007 DTaP/Tdap/Td Vaccine (1 - Tdap) 04/24/2009 04/23/2009 Regular Well Visit/Exam 18-64 02/09/2012 Zoster Vaccine (1 of 2) 2013 Pneumococcal vaccine <65 (2 of 2 - PCV) 09/04/2015 09/04/2014 Influenza Vaccine (Season Ended) 2025 09/04/2014, 09/02/2011 Hepatitis B Screening Completed 1994 , 1994, 1994 HPV Vaccines Aged Out No longer eligi ble based on patient's age to complete this topic Insurance [facility] Care Teams Silo Man Relationship Specialty Start Date End Date Martita Justice NP [address] [place] [id number] PCP - General Nurse Practitioner 06/19/24
--- OUTSIDE RECORDS SUMMARY | 2025-02-21 09:32 | XMS_ITS | Clinical Summary ---
Author Organization [facility] Address [address] [place] [address] Care Team Providers Care Barrel Endshaker Adjuster Name Role Phone DaraMartita juarez Lilly WOOD FLOOR LAYER Primary Care Provider Encounters Date Type Department Care Team Description 02/17/2025 10:02 AM CDT - 02/17/2025 11:59 PM CDT Hospital Encounter [facility] [place] [address] Charlotte Shook NP Discharge Disposition: Home or Self Care (Routine Discharge) 02/17/2025 Travel 02/06/2025 9:41 AM CDT - 02/06/2025 11:59 PM CDT Hospital Encounter [facility] [place] [address] Gladis Jeter, APNP Discharge Disposition: Home or Self Care (Routine Discharge) 02/06/2025 Travel 01/26/2025 12:30 PM CDT - 01/26/2025 11:59 PM CDT Hospital Encounter [facility] [place] [address] Gladis Jeter APHALLIE Discharge Disposition: Home or Self Care (Routine Discharge) 01/26/2025 Travel 01/12/2025 12:17 PM CDT - 01/12/2025 11:59 PM CDT Hospital Encounter [facility] [place] [address] Ce Lake NP Discharge Disposition: Home or Self Care (Routine Discharge) 01/12/2025 Travel from Last 3 Months Social History Tobacco Use Types Packs/Day Years Used Date Smoking Tobacco: Never Assessed Sex and Gender Information Value Date Recorded Sex Assigned at Not on file Legal Sex Male 2:40 PM CDT Gender Identity Not on file Sexual Orientation Not on file Plan of Treatment Upcoming Encounters Date Type Department Care Team (Late st Contact Info) Description 03/02/2025 10:45 AM CDT Appointment [facility] [address] [place] [address] Gladis Jeter APNP [id number] [address] Health Maintenance Due Date Last Done Comments Annual Physical 1997 Hepatitis C 02/09/2012 DTaP, Tdap and Td Vaccines ( 1 - Tdap) 2013 Hepatitis B Vaccines (1 of 3 - 19+ 3-dose series) 2013 COVID-19 Vaccine (2023-2 5 season) 2024 HPV Vaccines Aged Out No longer eligi ble based on patient's age to complete this topic Meningococcal B Vaccine Aged Out No l onger eligible based on patient's age to complete this topic Meningococcal Vaccine Aged Out No shay yodit eligible based on patient's age to complete this topic Pneumococcal Vaccine: Pediat rics (0 to 5 Years) and At-Risk Patients (6 to 49 Years) Aged Out No longer eligible b ased on patient's age to complete this topic RSV Immunizations Under 20 Months Aged Out No longer eligible based on patient's age to complete this topic Insurance [employer] Care Teams Barrel Endshaker Adjuster Relationship Specialty Start Date End Date aMrtita Justice NP [address] [place] [address] PCP - General NURSE PRACTITIONER 09/01/24
--- OUTSIDE RECORDS SUMMARY | 2025-02-21 09:32 | XMS_ITS | Clinical Summary ---
Author Organization [facility] Address [address] [place] [address] Phone Care Team Providers Care Model Maker Firearms Name Role Phone Unavailable Primary Care Provider Unavailabl e Allergies Active Allergy Reactions Criticality Noted Date Comments Amoxicillin Rash Low 07/17/2024 Medications ferrous sulfate 325 mg (65 mg iron) tablet Starting 08/10: Take 1 Tablet (325 mg) by mouth daily. 30 Tablet 1 08/09/2024 2:44 PM CDT 08/10/20 24 Active hydrOXYzine HCL (ATARAX) 10 mg tablet Take 1 Tablet (10 mg) by mouth every 6 hours as needed for Anxiety. 30 Tablet 08/09/2024 2:44 PM CDT 08/09/20 24 Active magnesium oxide (MAG-OX) 400 mg (241.3 mg magnesium) tablet Starting 08/10: Take 1 Tablet (400 mg) by mouth daily. 30 Tablet 08/09/2024 2:44 PM CDT 08/10/20 24 Active traZODone (DESYREL) 100 mg tablet Take 1 Tablet (100 mg) by mouth daily at bedtime. 30 Tablet 1 08/09/2024 2:44 PM CDT 08/09/20 24 Active CHOLECALCIFEROL , VITAMIN D3, ORAL Take by mouth. Activ e pegfilgrastim (Neulasta) 6 mg/0.6mL SyringeIndicati ons:Chemotherap y-induced neutropenia Inject 0.6 mL (6 mg) by subcutaneous injection day after chemotherapy treatment. 0.6 mL 5 09/13/20 24 Active losartan (COZAAR) 25 mg tablet Take 50 mg by mouth daily. 12/16/19 25 Active oxyCODONE-aceta minophen (PERCOCET) 5-325 mg tabletIndicatio ns:Rectal cancer (CMS/HCC) Take 1 Tablet by mouth every 4 hours as needed for Pain, Moderate. Max Daily Amount: 6 Tablets 40 Tablet 02/14/20 25 Active oxyCODONE-aceta minophen (PERCOCET) 5-325 mg tabletIndicatio ns:Rectal cancer (CMS/HCC) Take 1 Tablet by mouth every 4 hours as needed for moderate pain. Max Daily Amount: 6 Tablets 10 Tablet 09/01/2024 11:44 AM CDT 09/01/20 24 025 Discontin ued(Reord er) Active Problems Problem Noted Date Diagnosed Date Retrograde ejaculation 11/18/2024 Rectal cancer 08/15/2024 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 08/08/2024 Lung nodule seen on imaging study 08/08/2024 Rectal mass 07/19/2024 Bowel obstruction 07/06/2024 History of Clostridium difficile infection 07/06 Crohn's disease of both smal l and large intestine with intestinal obstruction 07/05/2024 Resolved Problems Problem Noted Date Diagnosed Date Resolved Date E. coli colitis 07/06/2024 07/17/2024 Nausea and vomiting 07/06/2024 07/17/20 24 Small bowel stricture 07/04/20242023 Encounters Date Type Department Care Team Description 02/20/2025 1:15 PM CDT Office Visit [facility] [place] [address] [facility] [address] [place] [phone] Shannan Soler MD Rectal cancer (CMS/HCC) (Primary Dx) 02/20/2025 Orders Only [facility] [place] [address] [place] [address] Judy Gramajo MD 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 (CMS/HCC) 02/14/2025 External Device Data STL ABSTRACTION Provider, Abstract 02/14/2025 External Device Data STL ABSTRACTION Provider, Abstract 02/13/2025 Orders Only [facility] - [address] [place] [address] Jose Reynolds MD Rectal cancer (CMS/HCC) 02/06/2025 Orders Only [facility] - [address] [place] [phone] Judy Gramajo MD 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 (CMS/HCC) 01/31/2025 Orders Only [facility] - [address] [place] [address] Jose Reynolds MD 01/30/2025 9:00 AM CDT Office Visit [facility] - [address] [place] [address] Jose Reynolds MD Rectal cancer ([facility]/HCC) 01/23/2025 Orders Only [facility] - [address] [place] [phone] Judy Gramajo MD 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 (CMS/HCC) 01/18/2025 Orders Only [facility] - [address] [place] [phone] Jose Reynolds MD 01/16/2025 Orders Only [facility] - [address] [place] [phone] Jose Reynolds MD Rectal cancer ([facility]/HCC) 01/11/2025 External Device Data STL ABSTRACTION Provider, Abstract 01/10/2025 External Device Data STL ABSTRACTION Provider, Abstract 01/09/2025 Orders Only [facility] - [address] [place] [phone] Judy Gramajo MD 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 (CMS/HCC) 01/02/2025 9:00 AM WELD FITTER Office Visit [facility] - [place] [place] [phone] Jose Reynolds MD Rectal cancer ([facility]/HCC) 01/02/2025 Orders Only [facility] - [address] [place] [address] Jose Reynolds MD 12/27/2024 External Device Data STL ABSTRACTION Provider, Abstract 12/27/2024 External Device Data STL ABSTRACTION Provider, Abstract 12/26/2024 Orders Only [facility] - [address] [place] [phone] Judy Gramajo MD 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 (CMS/HCC) 12/21/2024 External Device Data STL ABSTRACTION Provider, Abstract 12/19/2024 Orders Only [facility] - [address] [place] [phone] Jose Reynolds MD Rectal cancer ([facility]/HCC) 12/12/2024 Orders Only [facility] - [address] [place] [phone] Judy Gramajo MD 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 (CMS/HCC) 12/06/2024 External Device Data STL ABSTRACTION Provider, Abstract 12/05/2024 Orders Only [facility] - [address] [place] [phone] Jose Reynolds MD Rectal cancer ([facility]/HCC) 11/30/2024 External Device Data STL ABSTRACTION Provider, Abstract 11/28/2024 Orders Only [facility] - [address] [place] [address] Judy Gramajo MD 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 (CMS/HCC) 11/25/2024 Orders Only [facility] - [address] [place] [address] Jose Reynolds MD 11/24/2024 External Device Data STL ABSTRACTION Provider, Abstract 11/24/2024 Orders Only [facility] [address] [place] [address] Jose Reynolds MD 11/23/2024 9:15 AM WELD FITTER Office Visit [facility] [address] [place] [address] Jose Reynolds MD Rectal cancer ([facility]/HCC) (Primary Dx) from Last 3 Months Family History Medical History Relation Name Comments Lung Cancer Father No Known Problems Mother Colon Cancer Neg Hx Esophageal Cancer Neg Hx Gastric Cancer Neg Hx Liver Cancer Neg Hx Pancreatic Cancer Neg Hx Relation Name Status Comments Father Alive Mother Alive Social History Tobacco Use Types Packs/Day Years Used Date Smoking Tobacco: Never Smokeless Tobacco: Never Tobacco Cessation:Counseling Given: Not Answered Alcohol Use Standard Drinks/Week Comments Not Currently 0 (1 standard drink = 0.6 oz pur e alcohol) Utility Needs Answer Date Recorded In the past 12 months has [employer], [employer], oil, or water [employer] threatened to shut off services in your [...] often do you attend chur ch or restorationist services? Never 07/05/2024 Do you belong to any clubs o r organizations such as confucianist groups, unions, fraternal or athletic groups, or [...] any time in the past 12 m [facility], were you homeless or living in a halfway (including now)? No 07/05/2024 Feeling Safe Answer [...] Pressure 140/100 02/20/2025 1:23 PM CDT Pulse 69 01/30/2025 9:10 AM CDT Temperature 36.1 C (97 F) 01/30/2025 9:10 AM CDT Respiratory Rate 16 01/30/2025 9:10 AM CDT Oxygen Saturation 98% 01/30/2025 9:10 AM CDT Inhaled Oxygen Concentration - - Weight 94 kg (207 lb 3.2 oz) 02/20/2025 1:23 PM CDT Height 185.4 cm (6' 1 ) 02/20/2025 1:23 PM CDT Body Mass Index 27.34 02/20/2025 1:23 PM CDT Plan of Treatment Upcoming Encounters Date Type Department Care Team (Late st Contact Info) Description 03/06/2025 9:00 AM CDT Office Visit [facility] - [place] [address] [place] [address] [address] [place] [phone] Jose Reynolds MD [address] [facility] [address] [place] [address] 05/22/2025 1:15 PM CDT Office Visit [facility] [place] [address] [facility] [address] [place] [address] Shannan Soler MD [address] [facility] [address] [place] [address] Health Maintenance Due Date Last Done Comments DTAP/TDAP/TD VACCINES (2 - Tdap) 04/24/2009 04/23/2009 Preventative Visit-Managed Medicaid 2013 INFLUENZA VACCINE (#1) 2024 09/04/2014 HEPATITIS B VACCINES Completed 1994, 1994, 1994 HPV VACCINES Aged Out No longer eligi ble based on patient's age to complete this topic Medical Devices Implanted Type Area Basting Cleaner Device Identifier Shelf Expiration Date Model / Serial / Lot Barrier Seprafilm 5x6in [id number] - [id number] Implanted:Q ty: 2 on 07/28/2024 by Shannan Soler MD at [facility] [employer] Barrier N/A: Abdomen [employer] 04/30/2026 [id number] / / [id number] Barrier Seprafilm 5x6in [id number] - [id number] Implanted:Q ty: 1 on 07/28/2024 by Shannan Soler MD at [facility] [employer] Barrier N/A: Abdomen [employer] 04/06/2026 [id number] / / [id number] Barrier Seprafilm 5x6in [id number] - [id number] Implanted:Q ty: 2 on 07/28/2024 by Shannan Soler MD at [facility] [employer] Barrier N/A: Pelvis [employer] 05/26/2026 [id number] / / [id number] Port [employer] Clearvue 8fr Mri [id number] - [id number] Implanted:Q ty: 1 on 09/01/2024 by Shannan Soler MD at [facility] Port Right: Chest BARD JERRY VASC [id number] 01/30/2026 [id number] / / [id number] Description:right IJ Procedures Procedure Name Priority Date/Time Associated Diagnosis Comments COMPREHENSIVE METABOLIC PANEL Routine 01/30/2025 12:01 PM CDT URINE CULTURE Routine 01/30/2025 11:51 AM CDT BASIC METABOLIC PANEL Routine 01/30/2025 11:29 AM CDT BASIC METABOLIC PANEL Routine 01/16/2025 3:30 PM CDT COMPREHENSIVE METABOLIC PANEL Routine 01/16/2025 3:28 PM CDT BASIC METABOLIC PANEL Routine 01/02/2025 2:46 PM WELD FITTER BASIC METABOLIC PANEL Routine 11/23/2024 4:23 PM WELD FITTER COMPREHENSIVE METABOLIC PANEL Routine 11/23/2024 1:15 PM WELD FITTER CBC WITH DIFFERENTIAL Routine 11/23/2024 10:52 AM WELD FITTER from Last 3 Months Results * COMPREHENSIVE METABOLIC PANEL (01/30/2025 12:01 PM CDT) Only the most recent of3 resultswithin the time period is included. Blood us Jose Reynolds MD CHEMISTRY ORDERABLES Final Resu lt * URINE CULTURE (01/30/2025 11:51 AM CDT) Urine us Jose Reynolds MD MICROBIOLOGY - GENERAL ORDERABL ES Final Result * BASIC METABOLIC PANEL (01/30/2025 11:29 AM CDT) Only the most recent of4 resultswithin the time period is included. Blood us Jose Reynolds MD CHEMISTRY ORDERABLES Final Resu lt * CBC WITH DIFFERENTIAL (11/23/2024 10:52 AM WELD FITTER) Blood us Jose Reynolds MD HEMATOLOGY ORDERABLES Final Res ult from Last 3 Months Insurance [employer] [place] RX [facility] [employer] (INTERNAL) [facility] Plans [employer] [place] Advance Directives For more information, please contact: [phone] * Full Code (Latest Code Status on File) Date Activated Date Inactivated Comments 09/01/2024 6:56 AM 09/01/2024 2:56 PM * Full Code Date Activated Date Inactivated Comments 07/28/2024 7:05 PM 08/09/2024 4:56 PM * Full Code Date Activated Date Inactivated Comments 07/28/2024 6:45 AM 07/28/2024 7:05 PM * Full Code Date Activated Date Inactivated Comments 07/28/2024 5:55 AM 07/28/2024 6:45 AM * Full Code Date Activated Date Inactivated Comments 07/17/2024 5:21 PM 07/28/2024 5:55 AM
[2025-02-21 11:24] LABS: Glucose Point of Care 87 mg/dl (65-105)
== END 2025-02-21 08:54 | disposition home or self-care (01) ==
PROVIDERS: Visit Provider Internal Medicine Hematology & Oncology
DX: C20 Malignant neoplasm of rectum (principal); N13.30 Unspecified hydronephrosis; Z90.49 Acquired absence of other specified parts of digestive tract; Z93.2 Ileostomy status; R93.89 Abnormal findings on diagnostic imaging of other specified body structures
CPT/HCPCS: 78815; A9552

== ENCOUNTER 2025-06-27 09:12 | Outpatient (CLI) | payer OTHER, SELFPAY ==
--- NOTE | ~2025-06-27 | CT_ITS ---
EXAMINATION: CT chest abdomen pelvis w con DATE: 06/29/2025 9:20 CDT INDICATION: Rectal cancer. Follow-up TECHNIQUE: Computed tomography (CT) of the chest, abdomen, and pelvis was performed with intravenous contrast. COMPARISON: PET/CT from 02/21/2025 and 11/15/2024 FINDINGS: CHEST CT: No enlarged mediastinal or hilar lymph nodes. There are a few nonenlarged, nonspecific mediastinal and hilar lymph nodes. Thoracic aorta is not aneurysmal. Heart is not enlarged. Tracheobronchial tree is patent. Interval development of numerous subcentimeter pulmonary nodules scattered throughout both lungs as compared to the PET/CT from 02/21/2025. The findings are concerning for metastatic disease. Stable partially calcified 1.1 cm pulmonary nodule in the left upper lobe. Multilevel degenerative change in the visualized spine. ABDOMEN/PELVIS CT: Spleen is mildly enlarged. Liver, adrenal glands, pancreas and gallbladder are unremarkable. Right kidney is unremarkable. Abdominal aorta is not aneurysmal. Interval worsening in the severe left-sided hydronephrosis and left-sided hydroureter with nonspecific fat stranding about the left ureter. There is atrophy of the left kidney which has worsened since the prior study. No enlarged lymph nodes identified in the abdomen. Status post colectomy with right abdominal ileostomy. Interval increase in the size of the spiculated mass at the rectal fossa/presacral space which currently measures 5.1 x 4.5 x 6.0 cm, previously measured 4.5 x 2.0 cm on 02/21/2015. The mass abuts the prostate gland and possibly the base of the bladder. No bladder calculi. There are a few nonenlarged nonspecific lymph nodes in the pelvis. No dilated bowel loops. IMPRESSION: 1. Interval increase in the size of the spiculated mass at the rectal fossa/presacral space which currently measures 5.1 x 4.5 x 6.0 cm, previously measured 4.5 x 2.0 cm on 02/21/2015. The mass abuts the prostate gland and possibly the base of the bladder. 2. Interval worsening in the severe left-sided hydronephrosis and left-sided hydroureter with nonspecific fat stranding about the left ureter. 3. Interval development of numerous subcentimeter pulmonary nodules scattered throughout both lungs as compared to the PET/CT from 02/21/2025. The findings are concerning for metastatic disease. Follow-up is recommended. Reviewed, dictated and finalized at location Q. IMPRESSION: 1. Interval increase in the size of the spiculated mass at the rectal fossa/pre sacral space which currently measures 5.1 x 4.5 x 6.0 cm, previously measured 4 .5 x 2.0 cm on 02/21/2015. The mass abuts the prostate gland and possibly the ba se of the bladder. 2. Interval worsening in the severe left-sided hydronephrosis and left-sided hy droureter with nonspecific fat stranding about the left ureter. 3. Interval development of numerous subcentimeter pulmonary nodules scattered t hroughout both lungs as compared to the PET/CT from 02/21/2025. The findings are concerning for metastatic disease. Follow-up is recommended.
--- OUTSIDE RECORDS SUMMARY | 2025-06-27 09:34 | XMS_ITS ---
Author Organization [facility] Address [address] [place] [phone] Phone Care Team Providers Care Brusher Operator Name Role Phone Unavailable Primary Care Provider Unavailabl e Active Problems Problem Noted Date Diagnosed Date Hydronephrosis of left kidney 03/23/2025 Retrograde ejaculation 11/18/2024 Rectal cancer 08/15/2024 Rectal [...] Automatic Entry Manual Entr y Effective Dose 20.24 mSv 20.24 mSv 0 mSv Total DLP 1,342.91 DLP 1,342.91 DLP 0 DLP CTDIvol Max 19.88 mGy 19.88 mGy 0 mGy CTDIvol Min 0.1 mGy 0.1 mGy 0 mGy Resolved Problems Problem Noted Date Diagnosed Date Resolved Date E. coli colitis 07/06/2024 07/17/2024 Nausea and vomiting 07/06/2024 07/17/20 24 Small bowel stricture 07/04/20242023
--- OUTSIDE RECORDS SUMMARY | 2025-06-27 09:34 | XMS_ITS | Encounter Summary ---
Author Organization [facility] Address [address] [place] [address] Care Team Providers Care Input Output Clerk Name Role Phone Unavailable Primary Care Provider Unavailabl e Reason for Visit * Reason Onset Date Comments Follow-up Small Bowel Obstruction 07/05/2024 Spoke Rayna/ Rosa @ Dr. Mcallister's exchange Encounter Details Date Type Department Care Team (Late st Contact Info) Description 07/05/2024 Telephone [facility] Admitting [address] [place] [address] Leo Zurita MD NO ADDRESS ON FILE Follow-up Small Bowel Obstruction (Spoke W/ Rosa @ Dr. Mcallister's exchange) Social History Tobacco Use Types Packs/Day Years Used Date Smoking Tobacco: Never Smokeless Tobacco: Never Alcohol Use Standard Drinks/Week Comments Not Currently 0 (1 standard drink = 0.6 oz pur e alcohol) [facility] Utilities Answer Date Recorded In the past 12 months has [facility] Datezr, gas, oil, or water Fracture threatened to shut off services in your [...] often do you attend chur ch or congregation services? Never 07/05/2024 Do you belong to any clubs o r organizations such as catholic groups, unions, fraternal or athletic groups, or [...] any time in the past 12 m [facility], were you homeless or living in a prison (including now)? No 07/05/2024 Feeling Safe Answer [...] Care Team (Late st Contact Info) Description 07/04/2025 10:00 AM CDT Office Visit [facility] Oncology and Hematology - [place] [address] [place] [address] Judy Gramajo MD [address] [place] [address] documented as of this encounter Visit Diagnoses Not on filedocumented in this encounter Additional Health Concerns Infection Onset Date Last Indicated Resolved Time C Diff Comment:Added from external infection. 05/27/24 Cdiff @ [facility] 07/05/24 05/27/2024 07/05/2024 09/03/2024 1:16 AM C DT R/O GI Pathogen 07/05/2024 07/05/2024 07/05/2024 2 :35 PM CDT documented as of this encounter
--- OUTSIDE RECORDS SUMMARY | 2025-06-27 09:34 | XMS_ITS | Clinical Summary ---
Author Organization 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 30 Tablet 1 08/09/20 24 2:44 PM CDT Active hydrOXYzine HCL (ATARAX) 10 mg tablet Take 1 Tablet (10 mg) by mouth every 6 hours as needed for Anxiety. 30 Tablet 08/09/20 24 2:44 PM CDT 024 Active magnesium oxide (MAG-OX) 400 mg (241.3 mg magnesium) tablet Starting 08/10: Take 1 Tablet (400 mg) by mouth daily. 30 Tablet 08/09/20 24 2:44 PM CDT 024 Active Additional Information Patient not taking.Reported on 05/22/2025 traZODone (DESYREL) 100 mg tablet Take 1 Tablet (100 mg) by mouth daily at bedtime. 30 Tablet 1 08/09/20 24 2:44 PM CDT 024 Active CHOLECALCIFEROL , VITAMIN D3, ORAL Take by mouth. Activ e pegfilgrastim (Neulasta) 6 mg/0.6mL SyringeIndicati ons:Chemotherap y-induced neutropenia Inject 0.6 mL (6 mg) by subcutaneous injection day after chemotherapy treatment. 0.6 mL 5 11/12/2 024 Active Additional Information Patient not taking.Reported on 05/22/2025 losartan (COZAAR) 25 mg tablet Take 50 mg by mouth daily. 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 30 Gram 1 025 Active phenazopyridine 200 mg tablet Take 1 Tablet (200 mg) by mouth 3 times daily. 20 Tablet 04/26/20 25 2:37 PM CDT 025 Active oxyCODONE-aceta minophen (PERCOCET) 5-325 mg tabletIndicatio ns:Rectal cancer (CMS/HCC) Take 1 Tablet by mouth every 4 hours as needed for Pain, Moderate. 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 120 Capsule 025 Active oxyCODONE-aceta minophen (PERCOCET) 5-325 mg tabletIndicatio ns:Rectal cancer (CMS/HCC) Take 1 Tablet by mouth every 4 hours as needed for Pain, Moderate. 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 ([facility]/HCC) 06/20/2025 8:45 AM CDT Office Visit [facility] Oncology and Hematology [facility] [address] [place] [phone] Jose Reynolds MD Rectal cancer ([facility]/HCC) (Primary Dx) 06/20/2025 Orders Only [facility] Oncology and Hematology - [address] [place] [address] Jose Reynolds MD 06/19/2025 Orders Only [facility] Oncology and Hematology - [address] [place] [address] Jose Reynolds MD Rectal cancer ([facility]/HCC) 06/15/2025 Refill [facility] Oncology and Hematology - [address] [place] [address] Jose Reynolds MD 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 ([facility]/HCC) 06/12/2025 Refill [facility] Oncology and Hematology - [address] [place] [address] Aura Mora, JAYANT Rectal cancer ([facility]/HCC) 06/12/2025 Orders Only [facility] Oncology and Hematology - [address] [place] [address] Judy Gramajo MD 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 ([facility]/HCC) 06/09/2025 Telephone [facility] Urology at the [facility] [address] [place] [address] Michael Torres MD Lab Results 06/08/2025 Abstract [facility] Oncology and Hematology [facility] [address] [place] [phone] Jose Reynolds MD 06/07/2025 1:04 PM CDT - 06/07/2025 11:59 PM CDT Hospital Encounter [facility] Ultrasound [place] [address] [place] [address] Michael Torres MD Discharge Disposition: Home or Self Care 06/07/2025 External Device Data STL ABSTRACTION Provider, Abstract 06/06/2025 8:45 AM CDT Office Visit [facility] Oncology and Hematology [facility] [address] [place] [phone] Jose Reynolds MD Rectal cancer ([facility]/HCC) (Primary Dx) 06/06/2025 Orders Only [facility] Oncology and Hematology - [address] [place] [phone] Jose Reynolds MD 06/05/2025 Orders Only [facility] Oncology and Hematology - [address] [place] [address] Jose Reynolds MD Rectal cancer ([facility]/HCC) 05/30/2025 External Device Data STL ABSTRACTION Provider, Abstract 05/29/2025 Orders Only [facility] Oncology and Hematology - [address] [place] [address] Judy Gramajo MD 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 ([facility]/HCC) 05/25/2025 Orders Only [facility] Oncology and Hematology - [address] [place] [phone] Jose Reynolds MD 05/22/2025 1:45 PM CDT Office Visit [facility] Surgical Spec [address] [facility] [address] [place] [address] Shannan Soler MD Rectal cancer (CMS/HCC) (Primary Dx) 05/22/2025 Orders Only [facility] Oncology and Hematology - [address] [facility] [place] [phone] Jose Reynolds MD Rectal cancer (CMS/HCC) 05/18/2025 External Device Data STL ABSTRACTION Provider, Abstract 05/18/2025 Refill [facility] Oncology and Hematology - [address] [place] [phone] Jose Reynolds MD 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 (CMS/HCC) 05/16/2025 9:45 AM CDT Office Visit [facility] Oncology and Hematology - [address] [place] [phone] Jose Reynolds MD 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 (CMS/HCC) (Primary Dx) 05/15/2025 Orders Only [facility] Oncology and Hematology - [address] [place] [phone] Judy Gramajo MD 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 (CMS/HCC) 05/12/2025 Orders Only [facility] Oncology and Hematology - [address] [place] [phone] Jose Reynolds MD 05/09/2025 Refill [facility] Oncology and Hematology - [address] [facility] [place] [phone] Jose Reynolds MD Rectal cancer (CMS/HCC) 05/08/2025 Orders Only [facility] Oncology and Hematology - [address] [facility] [place] [phone] Jose Reynolds MD Rectal cancer (CMS/HCC) 05/01/2025 Orders Only [facility] Oncology and Hematology - [address] [place] [address] Judy Gramajo MD 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 ([facility]/HCC) 04/27/2025 Orders Only [facility] Urology at the [facility] [address] [place] [address] Michael Torres MD Hydronephrosis of left kidney (Primary Dx) 04/26/2025 12:10 PM CDT - 04/26/2025 12:53 PM CDT Surgery [facility] Operating Room [address] [place] [address] Michael Torres MD PYELOGRAM RETROGRADE 04/26/2025 12:01 PM CDT Anesthesia Event [facility] Operating Room [address] [place] [address] Myke Bland MD Adams, Malissa L, AA-C 04/26/2025 9:52 AM CDT - 04/26/2025 2:42 PM CDT Hospital Encounter [facility] [address] [place] [address] Michael Torres MD Other hydronephrosis Discharge Disposition: Home or Self Care 04/24/2025 Orders Only [facility] Urology at the [facility] [address] [place] [address] Michael Torres MD 04/24/2025 Orders Only [facility] Oncology and Hematology - [address] [place] [address] Jose Reynolds MD Rectal cancer ([facility]) 04/20/2025 Telephone [facility] Urology at the [facility] [address] [place] [address] Michael Torres MD Lab Results; Surgery 04/20/2025 Refill [facility] Oncology and Hematology [address] [place] [address] Jose Reynolds MD 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 (CMS/HCC) (Primary Dx); Rectal cancer (CMS/HCC) 04/19/2025 1:31 PM CDT - 04/19/2025 11:59 PM CDT Hospital Encounter [facility] CT Scan [place] [address] [place] [address] Michael Torres MD Discharge Disposition: Home or Self Care 04/19/2025 External Device Data STL ABSTRACTION Provider, Abstract 04/18/2025 External Device Data STL ABSTRACTION Provider, Abstract 04/17/2025 9:00 AM CDT Office Visit [facility] Oncology and Hematology [facility] [address] [place] [address] Jose Reynolds MD Rectal cancer (CMS/HCC) (Primary Dx) 04/17/2025 Orders Only [facility] Oncology and Hematology [facility] [address] [place] [phone] Judy Gramajo MD 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 (CMS/HCC) 04/10/2025 Refill [facility] Oncology and Hematology - [address] [place] [address] Jose Reynolds MD Rectal cancer (CMS/HCC) 04/10/2025 Orders Only [facility] Oncology and Hematology [address] [place] [address] Jose Reynolds MD Rectal cancer ([facility]/HCC) 04/07/2025 Telephone [facility] Urology at the [facility] Medicine [address] [place] [address] Michael Torres MD Calling patient regarding Insurance 04/03/2025 Orders Only [facility] Oncology and Hematology - [address] [place] [address] Judy Gramajo MD 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 (CMS/HCC) 03/28/2025 External Device Data STL ABSTRACTION Provider, Abstract 03/27/2025 Orders Only [facility] Oncology and Hematology [facility] [address] [place] [address] Jose Reynolds MD Rectal cancer (CMS/HCC) from Last 3 Months Family History Medical [...] drink = 0.6 oz pur e alcohol) [facility] Utilities Answer Date Recorded In the past 12 months has [employer], oil, or water [employer] threatened to shut off services in your [...] week 07/05/2024 How often do you attend [facility] or nondenominational services? Never 07/05/2024 Do you belong to any clubs o r organizations such as yazidism groups, unions, fraternal or athletic groups, or [...] any time in the past 12 m [facility], were you homeless or living in a fdc (including now)? No 07/05/2024 Feeling Safe Answer Date Recorded Are you in a relationship wi th someone who hurts you emotionally and/or physically? No 04/26/2025 Food Insecurity Answer Date Recorded Patient needs follow up regardin 02/22/2025 Transportation Needs Answer Date Record ed Patient needs follow up regardin 02/22/2025 Housing Stability Answer Date Recorded Social/Environmental Concerns No concerns Utility Needs Answer Date Recorded Patient needs follow up regardin 02/22/2025 Sex and Gender Information Value Date Recorded Sex Assigned at Not on file Legal Sex Male 10:21 PM CDT Gender Identity Not on file Sexual Orientation Not on file Last Filed Vital Signs Vital Sign Reading Time Taken Comments Blood Pressure 147/87 06/20/2025 8:48 AM CDT Pulse 71 06/20/2025 8:45 AM CDT Temperature 37.2 C (98.9 F) 06/20/2025 8:45 AM CDT Respiratory Rate 15 06/20/2025 8:45 AM CDT Oxygen Saturation 95% 06/20/2025 8:45 AM CDT Inhaled Oxygen Concentration - - Weight 95.4 kg (210 lb 6.4 oz) 06/20/2025 8:45 A M CDT Height 185.4 cm (6' 1) 05/22/2025 1:18 PM CDT Body Mass Index 27.76 05/22/2025 1:18 PM CDT Plan of Treatment Upcoming Encounters Date Type Department Care Team (Late st Contact Info) Description 07/04/2025 10:00 AM CDT Office Visit [facility] Oncology and Hematology - [address] [place] [address] Judy Gramajo MD [address] [place] [address] Health Maintenance Due Date Last Done Comments DTAP/TDAP/TD VACCINES (2 - Tdap) 04/24/2009 04/23/20 09 HPV VACCINES (1 - Risk 3-dos e SCDM series) 2021 INFLUENZA VACCINE (#1) 2025 09/04/2014 HEPATITIS B VACCINES Completed 1994, 1994, 1994 Medical Devices Implanted Type Area Ip Litigation Associate Device Identifier Shelf Expiration Date Model / Serial / Lot Barrier Seprafilm 5x6in [id number] - [id number] Implanted:Q ty: 2 on 07/28/2024 by Shannan Soler MD at [facility] Adhesion Barrier N/A: Abdomen [employer] 04/30/2026 [id number] / / [id number] Barrier Seprafilm 5x6in [id number] - [id number] Implanted:Q ty: 1 on 07/28/2024 by Shannan Soler MD at [facility] Adhesion Barrier N/A: Abdomen [employer] 04/06/2026 [id number] / / [id number] Barrier Seprafilm 5x6in [id number] - [id number] Implanted:Q ty: 2 on 07/28/2024 by Shannan Soler MD at [facility] Adhesion Barrier N/A: Pelvis [employer] 05/26/2026 [id number] / / [id number] Port [employer] Clearvue 8fr Mri [id number] - [id number] Implanted:Q ty: 1 on 09/01/2024 by Shannan Soler MD at [facility] Port Right: Chest BARD JERRY VASC [id number] 01/30/2026 [id number] / / [id number] Description:right IJ Procedures Procedure Name Priority Date/Time Associated Diagnosis Comments BASIC METABOLIC PANEL Routine 06/20/2025 12:46 PM CDT COMPREHENSIVE METABOLIC PANEL Routine 06/20/2025 12:45 PM CDT US RENAL AND BLADDER Routine 06/07/2025 1:58 PM CDT Hydronephrosis of left kidney COMPREHENSIVE METABOLIC PANEL Routine 06/06/2025 12:46 PM CDT BASIC METABOLIC PANEL Routine 05/23/2025 1:53 PM CDT COMPREHENSIVE METABOLIC PANEL Routine 05/23/2025 1:50 PM CDT CBC WITH DIFFERENTIAL Routine 05/23/2025 1:48 PM CDT CEA Routine 05/11/2025 12:52 PM CDT XR RETROGRADE PYELOGRM W WO KUB Routine 04/26/2025 12:35 PM CDT CYSTOURETHROSCOPY 04/26/2025 12: 10 PM CDT Other hydronephrosis WA CYSTOURETHROSCOPY W/URETERAL CATHETERIZATION 04/26/2025 12:10 PM CDT Other hydronephrosis WA ANES INSERT SUPRAGLOTTIC AIRWAY Routine 04/26/2025 12:[address] UROGRAPHY Routine 04/19/2025 2:02 PM CDT Hydronephrosis of left kidney BASIC METABOLIC PANEL Routine 04/17/2025 4:04 PM CDT CBC WITH DIFFERENTIAL Routine 04/17/2025 4:03 PM CDT from Last 3 Months Results * BASIC METABOLIC PANEL (06/20/2025 12:46 PM CDT) Only the most recent of3 resultswithin the time period is included. Blood us Jose Reynolds MD CHEMISTRY ORDERABLES Final Resu lt * COMPREHENSIVE METABOLIC PANEL (06/20/2025 12:45 PM CDT) Only the most recent of3 resultswithin the time period is included. Blood us Jose Reynolds MD CHEMISTRY ORDERABLES Final Resu lt * US RENAL AND BLADDER (06/07/2025 1:58 PM CDT) Anatomical Region Laterality Modality Abdomen Ultrasound 06/07/2025 2:00 PM CDT Impressions 06/07/2025 2:06 PM CDT IMPRESSION: 1. Severe left-sided hydronephrosis. DICTATION LOCATION: Location 2 [facility] Narrative 06/07/2025 2:06 PM CDT US RENAL AND BLADDER DATE: 06/07/2025 1:58 PM HISTORY: Hydronephrosis of left kidney. COMPARISON: Correlation with CT urogram 04/19/2025. FINDINGS: Right Kidney: Measurement: 13.1 cm x 5.8 cm x 4.9 cm which is normal in size. Echogenicity: Normal. Hydronephrosis: None. Renal lesion: No renal lesion. Additional Findings: None. Left Kidney: Measurement: 12.2 cm x 4.6 cm x 4.4 cm which is normal in size. Echogenicity: Normal. Hydronephrosis: Severe hydronephrosis with renal pelvis measuring up to 3.2 cm in AP dimension. Renal lesion: No renal lesion. Additional Findings: None. Bladder: No appreciable abnormality. Incidental Findings: None. Procedure Note Ignacio Francis MD - 06/07/2025 US RENAL AND BLADDER DATE: 06/07/2025 1:58 PM HISTORY: Hydronephrosis of left kidney. COMPARISON: Correlation with CT urogram 04/19/2025. FINDINGS: Right Kidney: Measurement: 13.1 cm x 5.8 cm x 4.9 cm which is normal in size. Echogenicity: Normal. Hydronephrosis: None. Renal lesion: No renal lesion. Additional Findings: None. Left Kidney: Measurement: 12.2 cm x 4.6 cm x 4.4 cm which is normal in size. Echogenicity: Normal. Hydronephrosis: Severe hydronephrosis with renal pelvis measuring up to 3.2 cm in AP dimension. Renal lesion: No renal lesion. Additional Findings: None. Bladder: No appreciable abnormality. Incidental Findings: None. IMPRESSION: 1. Severe left-sided hydronephrosis. DICTATION LOCATION: Location [address] [place] [address] Michael Torres MD US ORDERABLES Final Result * CBC WITH DIFFERENTIAL (05/23/2025 1:48 PM CDT) Only the most recent of2 resultswithin the time period is included. Blood Jose Reynolds MD HEMATOLOGY ORDERABLES Final Res ult * CEA (05/11/2025 12:52 PM CDT) Blood Jose Reynolds MD CHEMISTRY ORDERABLES Final Resu lt * XR RETROGRADE PYELOGRM W WO KUB (04/26/2025 12:35 PM CDT) Anatomical Region Laterality Modality Abdomen Computed Radiogr aphy 04/26/2025 12:3 5 PM CDT Impressions 04/26/2025 1:13 PM CDT IMPRESSION: Please see procedure note by the service performing the procedure for details. Narrative 04/26/2025 1:13 PM CDT PROCEDURE/EXAM(S): XR RETROGRADE PYELOGRM W WO KUB PROVIDED CLINICAL HISTORY/INDICATION: Male of 30 years age. Other - Please see comments. See Reason for Exam. DICTATION LOCATION: [address] TECHNIQUE/FINDINGS: Fluoroscopy was provided by the radiology department for another service and fluoroscopic images were obtained over the pelvis for a procedure. I was not present or involved with this procedure. Please see procedure note by the physician/service performing the procedure for details. FLUOROSCOPY TIME / EXPOSURE: 2.23 minutes / 31.48 mGy (Ka,r). Procedure Note Jackie Oakes MD - 04/26/2025 PROCEDURE/EXAM(S): XR RETROGRADE PYELOGRM W WO KUB PROVIDED CLINICAL HISTORY/INDICATION: Male of 30 years age. Other - Please see comments. See Reason for Exam. DICTATION LOCATION: Location [address] [place] [address] TECHNIQUE/FINDINGS: Fluoroscopy was provided by the radiology department for another service and fluoroscopic images were obtained over the pelvis for a procedure. I was not present or involved with this procedure. Please see procedure note by the physician/service performing the procedure for details. FLUOROSCOPY TIME / EXPOSURE: 2.23 minutes / 31.48 mGy (Ka,r). IMPRESSION: Please see procedure note by the service performing the procedure for details. Michael Torres MD DIAGNOSTIC IMAGING ORDERABLE S Final Result * WA ANES INSERT SUPRAGLOTTIC AIRWAY (04/26/2025 12:08 AM CDT) Narrative Kathleen Ferrer AA-C - 04/26/2025 12:08 AM CDT Kathleen Ferrer AA-C 04/26/2025 12:27 PM Airway Date/Time: 04/26/2025 12:08 AM Location: [place] Plan: routine intubation Patient Identity Confirmed by: Verbally with patient and armband Staffing Performed: INFORMATION TECHNOLOGY PROGRAM MANAGER/CAA Authorized by: Myke Bland MD Performed by: Kathleen Ferrer AA-C Indications and Patient Condition: Indications for Airway Management: Anesthesia Sedation Level: general anesthesia Preoxygenated: yes Mask Difficulty Assessment: 0 - not attempted Plan to extubate at end of case: Yes Final Airway Details: Final Airway Type: Supraglottic airway Final Supraglottic Airway: LMA LMA size: 5 Tube secured with: Tape Placement Verified by: auscultation, end tidal CO2 and chest rise Number of Attempts at Approach: 1 Additional Procedure Information: atraumatic and dentition unchanged us Myke Bland MD PROCEDURE/MINOR SURGICAL ORDERA BLES Final Result * CT UROGRAPHY (04/19/2025 2:02 PM CDT) Anatomical Region Laterality Modality Abdomen, Pelvis Computed Tomogra phy 04/19/2025 1:52 PM CDT Impressions 04/20/2025 10:18 AM CDT IMPRESSION: 1. New pulmonary nodules, concerning for metastases. 2. Moderate left hydronephrosis, extending to the level of presacral soft tissue deposits. No excretion of contrast on the left on nephrographic or delayed images, suggesting impaired renal function. 3. Ileoanal and presacral soft tissue thickening, concerning for recurrent and metastatic disease. DICTATION LOCATION: 04/20/2025 10:18 AM CDT EXAMINATION: CT UROGRAM DATE: 04/19/2025 2:02 PM HISTORY: Hydronephrosis TECHNIQUE: Transaxial computed tomographic images of the abdomen were obtained without intravenous contrast. Images of the abdomen and pelvis were then obtained following the uneventful administration of intravenous contrast according to CT urogram protocol. The examination was performed with the adjustment of mA according to the patient size and/or the use of Iterative Reconstruction Technique. CONTRAST: IOPAMIDOL 61 % INTRAVENOUS SOLUTION (MULTI-DOSE BULK PACK) Given:150 mL DLP: 645.09 mGy/cm FINDINGS: Comparison is made to an outside hospital PET/CT from 02/21/2025. Urographic findings: There are no renal or ureteral stones. There is hypoenhancement of the left kidney on nephrogram images. There is moderate left hydronephrosis, extending to the level of presacral soft tissue deposits. There is no excretion of contrast on the left, suggesting impaired renal function. The bladder is decompressed. Non urographic findings: Lung bases: There is a new 8 mm solid nodule in the right middle lobe and a more inferior 3 mm pleural nodule. There is also a 4 mm right lower lobe nodule and smaller nodules along the diaphragm. Left lower lobe nodules are also noted. Liver: Normal Gallbladder: Normal Pancreas: Normal Spleen: Normal Adrenal glands: Normal Stomach: Normal Small bowel: There is a right lower quadrant ileostomy. Colon: There are changes of prior colectomy. There is increasing thickening at the ileoanal anastomosis and presacral soft tissue deposits. Vasculature: The SMA and SMV are patent. Bones: Bilateral sacroiliitis Other: There is left para-aortic lymphadenopathy. Procedure Note Landon Rosales MD - 04/20/2025 EXAMINATION: CT UROGRAM DATE: 04/19/2025 2:02 PM HISTORY: Hydronephrosis TECHNIQUE: Transaxial computed tomographic images of the abdomen were obtained without intravenous contrast. Images of the abdomen and pelvis were then obtained following the uneventful administration of intravenous contrast according to CT urogram protocol. The examination was performed with the adjustment of mA according to the patient size and/or the use of Iterative Reconstruction Technique. CONTRAST: IOPAMIDOL 61 % INTRAVENOUS SOLUTION (MULTI-DOSE BULK PACK) Given:150 mL DLP: 645.09 mGy/cm FINDINGS: Comparison is made to an outside hospital PET/CT from 02/21/2025. Urographic findings: There are no renal or ureteral stones. There is hypoenhancement of the left kidney on nephrogram images. There is moderate left hydronephrosis, extending to the level of presacral soft tissue deposits. There is no excretion of contrast on the left, suggesting impaired renal function. The bladder is decompressed. Non urographic findings: Lung bases: There is a new 8 mm solid nodule in the right middle lobe and a more inferior 3 mm pleural nodule. There is also a 4 mm right lower lobe nodule and smaller nodules along the diaphragm. Left lower lobe nodules are also noted. Liver: Normal Gallbladder: Normal Pancreas: Normal Spleen: Normal Adrenal glands: Normal Stomach: Normal Small bowel: There is a right lower quadrant ileostomy. Colon: There are changes of prior colectomy. There is increasing thickening at the ileoanal anastomosis and presacral soft tissue deposits. Vasculature: The SMA and SMV are patent. Bones: Bilateral sacroiliitis Other: There is left para-aortic lymphadenopathy. IMPRESSION: 1. New pulmonary nodules, concerning for metastases. 2. Moderate left hydronephrosis, extending to the level of presacral soft tissue deposits. No excretion of contrast on the left on nephrographic or delayed images, suggesting impaired renal function. 3. Ileoanal and presacral soft tissue thickening, concerning for recurrent and metastatic disease. DICTATION LOCATION: [address] ORDERABLES Final Result from Last 3 Months Insurance [employer] [place] RX [facility] [employer] (INTERNAL) [facility] Plans [employer] [place] Advance Directives For more information, please contact: [phone] * Full Code (Latest Code Status on File) Date Activated Date Inactivated Comments 04/26/2025 12:54 PM 04/26/2025 4:48 PM * Full Code Date Activated Date Inactivated Comments 04/26/2025 11:46 AM 04/26/2025 12:54 PM * Full Code Date Activated Date Inactivated Comments 04/26/2025 10:32 AM 04/26/2025 11:46 AM * Full Code Date Activated Date Inactivated Comments 09/01/2024 6:56 AM 09/01/2024 2:56 PM * Full Code Date Activated Date Inactivated Comments 07/28/2024 7:05 PM 08/09/2024 4:56 PM
--- OUTSIDE RECORDS SUMMARY | 2025-06-27 09:34 | XMS_ITS | Clinical Summary ---
Author Organization [facility] Address [address] [place] [address] Care Team Providers Care Pull Over Name Role Phone Christina Joseph PA-C Primary Care Provider [phone] Source Comments [facility],non-owned Affiliates and Associated Physician Practices is amultiple site organization consisting of ambulatory clinics and hospital sitesin [place], [place], [place] and [place]. This disclosure is being madepursuant to the Care Everywhere program and may not contain all information available regarding this patient. Last updated 18.[facility] [place] Allergies Active Allergy Reactions Criticality Noted Date [...] MOUTH ONCE DAILY 30 tablet 06/02/20 24 Active vancomycin (Vancocin) 125 MG capsule TAKE 1 CAPSULE BY MOUTH FOUR TIMES DAILY FOR 5 DAYS 20 capsule 06/02/20 24 Active loperamide (Imodium) 2 MG capsule TAKE 1 CAPSULE BY MOUTH FOUR TIMES DAILY NEEDED FOR DIARRHEA 30 capsule 06/02/20 24 Active azaTHIOprine (Imuran) 50 MG tabletIndications:C rohn's disease with complication, unspecified gastrointestinal tract location (HCC) Take 1 (one) tablet by mouth once daily 30 tablet 6 12/07/19 25 Active Active Problems Problem Noted Date Diagnosed Date Pneumomediastinum 06/18/2024 Rectal bleeding 06/18/2024 Crohn's disease with complic ation, unspecified gastrointestinal tract location 05/26/2024 Social History Tobacco Use Types Packs/Day Years [...] care, and heating? Not very hard 05/27/2024 [facility] of Occupat ional Health - Occupational Stress [...] the money to buy more. Never true 07/26/20 24 Within the past 12 months, t [...] place to sleep or slept in a penitentiary (including now)? No 05/27/2024 Sex and Gender [...] 12:57 PM CDT Height 185.4 cm (6' 1) 06/20/2024 12:57 PM CDT Body Mass Index [...] 2013 ZOSTER VACCINE (1 of 2) 2013 HPV VACCINE (1 - 3-dose SCDM series) 2021 DEPRESSION SCREENING 11/02/2024 INFLUENZA VACCINE (#1) 2025 4, 09/02/2011 HIB VACCINE Aged Out No longer [...] Last Indicated C DIFF 05/27/2024 05/27/2024 Insurance [facility] Advance Directives * Full Code (Latest Code Status on File) Date Activated Date Inactivated Comments 05/26/2024 8:13 PM 06/02/2024 3:26 PM Care Teams Pull Over Relationship Specialty Start Date End Date Christina Joseph PA-C [address] [place] [phone] PCP - General Physician Manager Property 05/26/24
--- OUTSIDE RECORDS SUMMARY | 2025-06-27 09:34 | XMS_ITS | Encounter Summary ---
Author Organization [facility] Address [address] [place] [address] Care Team Providers Care Car Body Inspector Name Role Phone Unavailable Primary Care Provider Unavailabl e Encounter Details Date Type Department Care Team (Late st Contact Info) Description 06/26/2025 Orders Only [facility] Oncology and Hematology - Maulik [address] [place] [address] Judy Gramajo MD [address] [place] [address] 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 (CMS/HCC) Social History Tobacco Use Types Packs/Day Years Used Date Smoking Tobacco: Never Smokeless Tobacco: Never Alcohol Use Standard Drinks/Week Comments Not Currently 0 (1 standard drink = 0.6 oz pur e alcohol) [facility] Utilities Answer Date Recorded In the past 12 months has [facility] [employer] gas, oil, or water [employer] threatened to shut off services in your [...] often do you attend chur ch or mu-ism services? Never 07/05/2024 Do you belong to any clubs o r organizations such as christianity groups, unions, fraternal or athletic groups, or [...] time in the past 12 m [facility], were you homeless or living in a chcf (including now)? No 07/05/2024 Feeling Safe Answer [...] 07/04/2025 10:00 AM CDT Office Visit [facility] Oncology and Hematology - Ma[address] [place] [address] Judy Gramajo MD [address] [place] [address] documented as of this encounter Visit Diagnoses Diagnosis 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 (CMS/HCC) documented in this encounter
--- OUTSIDE RECORDS SUMMARY | 2025-06-27 09:34 | XMS_ITS | Clinical Summary ---
Author Organization [facility] Address [facility] [place] [address] Care Team Providers Care Manager Simulation Name Role Phone Martita Justice NP Primary [...] 04/2024- stricture with pinpoint opening referred to [facility] for ongoing care Flex sig 07/2024- rectal cancer 07/28/2024: completion proctectomy with end ileostomy due to rectal cancer. Encounters Date Type Department Care Team Description 06/14/2025 Telephone [facility] Gastroenterology [address] [facility] [address] [place] [address] Allie Barksdale, RN Calling about patient's ostomy supplies 06/12/2025 Telephone [facility] [address] [place] [address] 12[address] [place] [address] [place] [address] Ana Maria Marley 05/26/2025 Telephone [facility] [address] [facility] [address] [place] [phone] Allie Barksdale, salesperson burial needs supplies from Last 3 Months Surgical History Surgery [...] 8:15 AM CDT Height 185.4 cm (6' 1) 01/10/2025 8:15 AM CDT Body Mass Index 27.51 01/10/2025 8:15 AM CDT Plan of Treatment Health Maintenance Due Date Last Done Comments Depression Screening 1994 Hepatitis C Screening 1994 Varicella Vaccines (1 of 2 - 13+ 2-dose series) 2007 DTaP/Tdap/Td Vaccine (1 - Tdap) 04/24/2009 9 Regular Well Visit/Exam 18-64 02/09/2012 Zoster Vaccine (1 of 2) 2013 Pneumococcal vaccine <65 (2 of 2 - PCV) 09/04/2015 09/04/2014 HPV Vaccines (1 - Risk 3-dos e SCDM series) 2021 Influenza Vaccine (#1) 2025 09/04/2014, 2010 Hepatitis B Screening Completed 1994 , 1994, 1994 Insurance [facility] Care Teams Manager Simulation Relationship Specialty Start Date End Date Martita Justice, FLOOR COVERING CONTRACTOR [address] [place] [address] PCP - General Nurse Practitioner 06/19/24
== END 2025-06-27 09:13 | disposition home or self-care (01) ==
PROVIDERS: Visit Provider Internal Medicine Hematology & Oncology
DX: Z08 Encounter for follow-up examination after completed treatment for malignant neoplasm (principal); C20 Malignant neoplasm of rectum
CPT/HCPCS: 71260; 74177; Q9967

== ENCOUNTER 2025-07-25 08:09 | Outpatient (CLI) | payer OTHER, SELFPAY ==
--- NOTE | ~2025-07-25 | PE_ITS ---
EXAMINATION: PET skull to mid thigh DATE: 07/25/2025 11:58 INDICATION: Rectal cancer metastasized intrapelvic lymph node TECHNIQUE: Blood glucose level was 93 mg/dL. 10.043 mCi of 18-fluorodeoxyglucose (18-FDG) was administered i.v. Low dose computed tomography (CT) images were acquired from the base of the brain to the proximal thighs for attenuation correction and anatomic localization. Positron emission tomography (PET) images were acquired in the same distribution beginning 60 minutes after injection. Images including fused PET/CT images were reconstructed in axial, coronal, and sagittal planes. Automated exposure control technique was employed. The dose- length product was 1172.68mGy-cm. COMPARISON: CT dated 06/27/2025 and PET/CT dated 02/21/2025 FINDINGS: Head/neck: There is symmetric increased activity in the oral cavity, palatine tonsils, parotid glands, laryngeal muscles and ocular muscles without CT correlate, likely physiologic. There is indeterminate tiny focus of increased uptake centered along the skin surface located slightly inferior to the right zygomatic arch with maximal SUV of 5.7 with very subtle focal skin thickening at this location. No pathologically enlarged cervical lymphadenopathy or suspicious foci of increased FDG uptake in the visualized head or neck. Chest: There are numerous scattered bilateral FDG avid pulmonary nodules with random distribution consistent with metastatic disease. For reference one of the nodule right middle lobe measures 12 mm e with maximal SUV of 4.8. There is a 10 mm nodule at the lateral basilar left lower lobe with maximal SUV of 6.8. No pleural effusion. Heart size is normal. No pericardial effusion. Thoracic aorta is normal in caliber. No pathologically enlarged or definitively FDG avid thoracic lymphadenopathy. There are multiple FDG avid bone lesions consistent with metastatic disease including at the left scapula with maximal SUV of 7.2 and at multiple bilateral ribs with very subtle associated sclerosis such as seen in the anterior left eighth rib maximal SUV of 12.8. There is an additional tiny focus of increased uptake with maximal SUV of 5.4 cm along the skin surface overlying the medial of the left scapula. Abdomen/pelvis/proximal thighs: Physiologic renal accumulation and excretion of FDG activity in the right kidneys, bladder and along portions of the right ureter. There is moderate left hydroureteronephrosis with moderate atrophy of the left kidney which demonstrates only mild FDG activity with no excretion of activity consistent wit h left renal insufficiency. Normal degree and heterogenous pattern of increased uptake throughout the liver without radiologic correlate or dominant FDG avid lesion. The gallbladder, pancreas, spleen and bilateral adrenal glands are normal. 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 Mild uptake scattered throughout the bowels without radiologic correlate, also likely physiologic. Interval increase in size of a now 4.4 x 3.7 cm spiculated mass with surrounding stranding at the rectal fossa suspicious for progression of locally recurrent malignancy there are multiple additional. The mass demonstrates moderate peripheral FDG uptake with maximal SUV of 9.7 cm surrounding a photopenic and likely necrotic central region to the mass. There is a 9 mm FDG avid lymph node along the proximal left internal iliac chain sacrum with maximal SUV of 9.4. No other pathologically enlarged or abnormally FDG avid abdominal or pelvic lymphadenopathy. There is a subtle sclerotic lesion at the right side of the T12 vertebral body with maximal SUV of 11. Ankylosis across the bilateral sacroiliac joints. Additional FDG avid bone lesions at the sacrum and left posterior iliac spine. One of these is at the left posterior iliac spine associated with a 1.1 cm lytic lesion and with maximal SUV of 11.8. IMPRESSION: 1. Status post colectomy with interval increase in size of a 4.4 x 3.7 cm spiculated peripherally FDG avid mass at the rectal fossa consistent with progression of centrally necrotic locally recurrent malignancy. 2. Numerous new small scattered bilateral FDG avid pulmonary nodules along with several scattered FDG avid bone lesions consistent with progression of metastatic disease. 3. A couple tiny foci of subtle skin thickening with mild associated FDG uptake in the right side of the face slightly lateral to the zygomatic arch and at the right posterior thorax along the superomedial margin of the left scapula. This could be infectious/inflammatory in etiology or malignant either primary or metastatic. Correlate with physical exam. 4. Persistent moderate left hydroureteronephrosis which appears to be secondary to obstruction at the level of the mass at the rectal fossa with interval progression of now moderate left renal atrophy and with significantly decreased FDG uptake and excretion by the left kidney. Reviewed, dictated and finalized at location A. IMPRESSION: 1. Status post colectomy with interval increase in size of a 4.4 x 3.7 cm spicu lated peripherally FDG avid mass at the rectal fossa consistent with progressio n of centrally necrotic locally recurrent malignancy. 2. Numerous new small scattered bilateral FDG avid pulmonary nodules along with several scattered FDG avid bone lesions consistent with progression of metasta tic disease. 3. A couple tiny foci of subtle skin thickening with mild associated FDG uptake in the right side of the face slightly lateral to the zygomatic arch and at th e right posterior thorax along the superomedial margin of the left scapula. Thi s could be infectious/inflammatory in etiology or malignant either primary or m etastatic. Correlate with physical exam. 4. Persistent moderate left hydroureteronephrosis which appears to be secondary to obstruction at the level of the mass at the rectal fossa with interval prog ression of now moderate left renal atrophy and with significantly decreased FDG uptake and excretion by the left kidney.
--- OUTSIDE RECORDS SUMMARY | 2025-07-25 08:26 | XMS_ITS | Encounter Summary ---
Author [facility] Address [address] [place] [address] Care Team Providers Care Lap Runner Name Role Phone Unavailable Primary Care Provider Unavailabl e Encounter Details Date Type Department Care Team (Late st Contact Info) Description 07/24/2025 Orders Only [facility] Oncology and Hematology - Maul[address] [place] [address] Judy Gramajo MD [address] [place] [address] 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 (CMS/HCC) Social History Tobacco Use Types Packs/Day Years Used Date Smoking Tobacco: Never Smokeless Tobacco: Never Alcohol Use Standard Drinks/Week Comments Not Currently 0 (1 standard drink = 0.6 oz pur e alcohol) [facility] Utilities Answer Date Recorded In the past 12 months has [facility] [employer] gas, oil, or water [employer] threatened to shut off services in your [...] often do you attend chur ch or confucianist services? Never 07/05/2024 Do you belong to any clubs o r organizations such as latter day groups, unions, fraternal or athletic groups, or [...] declined 07/05/2024 Housing Stability Answer Date Recorded Unable to Pay for Housing in the Last Year Not o n file 07/05/2024 Number of Times Moved in the Last Year Not on fi le 07/05/2024 At any time in the past 12 m [facility], were you homeless or living in a mcc (including now)? No 07/05/2024 Feeling Safe Answer [...] Care Team (Late st Contact Info) Description 07/28/2025 1:00 PM CDT Telephone Check Up [facility] Oncology and Hematology - Maulik [address] [facility] [address] [place] [address] Jose Reynolds MD [address] [facility] [address] [place] [address] documented as of this encounter Visit Diagnoses Diagnosis 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 (CMS/HCC) documented in this encounter
--- OUTSIDE RECORDS SUMMARY | 2025-07-25 08:27 | XMS_ITS | Encounter Summary ---
Author Organization [facility] Address [address] [place] [address] Phone Care Team Providers Care Associate Account Director Name Role Phone Martita Justice PROCESS COORDINATOR Primary Care Provider + Martita Justice PROCESS COORDINATOR Unavailable [phone] Jose Reynolds MD Unavailable [phone] Jazmin Delgado MD Unavailable Encounter Details Date Type Department Care Team (Late st Contact Info) Description 07/20/2025 Orders Only [facility] Medicine Pathology Outreach [address] [place] [address] Jazmin Delgado MD [address] [facility] [address] [place] [address] 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 (HCC) Social History Tobacco Use Types Packs/Day Years [...] as of this encounter Plan of Treatment Pending Results Name Type Priority Associated Diagnoses Date /Time Surgical pathology Pathology and Cytology Routine 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 (HCC) 07/20/2025 4:07 PM CDT documented as of this encounter Visit Diagnoses Diagnosis 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 (HCC) documented in this encounter Care Teams Associate Account Director Relationship Specialty Start Date End Date Martita Justice, PROCESS COORDINATOR [address] [place] [address] PCP - General Nurse Practitioner 06/19/24 Martita Justice, PROCESS COORDINATOR [address] [place] [id number] Nurse Practitioner 06/19/24 Jose Reynolds MD [address] [phone] Referring Physician Hematology 07/11/25 Jazmin Delgado MD [address] [facility] [address] [facility] [place] [address] Medical Oncologist/Tableau Architect Medical Oncology 07/11/25 documented as of this encounter
--- OUTSIDE RECORDS SUMMARY | 2025-07-25 08:27 | XMS_ITS | Clinical Summary ---
Author Organization [facility] Address [address] [place] [address] Phone Care Team Providers Care Machinist Name Role Phone Unavailable Primary Care Provider [...] Encounters Date Type Department Care Team Description 07/24/2025 Orders Only [facility] Oncology and Hematology - Maulik Carlos [address] [place] [address] Judy Gramajo MD 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 (CMS/HCC) 07/18/2025 8:30 AM CDT Office Visit [facility] Oncology and Hematology - Maulik Carlos [address] [place] [phone] Jose Reynolds MD 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 (CMS/HCC) (Primary Dx) 07/18/2025 External Device Data STL ABSTRACTION Provider, Abstract 07/18/2025 Orders Only [facility] Oncology and Hematology - Maulik Carlos [address] [place] [phone] Jose Reynolds MD 07/17/2025 Orders Only [facility] Oncology and Hematology - Maulik Carlos [address] [place] [address] Jose Reynolds MD Rectal cancer (CMS/HCC) (Primary Dx) 07/17/2025 Orders Only [facility] Oncology and Hematology - Maulik Carlos [address] [place] [address] Jose Reynolds MD Rectal cancer (CMS/HCC) 07/12/2025 Refill [facility] Oncology and Hematology - Maulik Carlos [address] [place] [address] Jose Reynolds MD 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 (CMS/HCC) 07/11/2025 External Device Data STL ABSTRACTION Provider, Abstract 07/11/2025 Refill [facility] Oncology and Hematology - Maulik Carlos [address] [place] [address] Judy Gramajo MD Rectal cancer (CMS/HCC) 07/10/2025 Orders Only [facility] Oncology and Hematology - Maulik Carlos [address] [place] [address] Judy Gramajo MD 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 (CMS/HCC) 07/06/2025 Orders Only [facility] Oncology and Hematology - Maulik Carlos [address] [place] [phone] Jose Reynolds MD 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 (CMS/HCC) (Primary Dx) 07/06/2025 Orders Only [facility] Oncology and Hematology - Maulik Carlos [address] [place] [address] Judy Gramajo MD 07/04/2025 10:00 AM CDT Office Visit [facility] Oncology and Hematology - Maulik Carlos [address] [place] [address] Judy Gramajo MD Rectal cancer (CMS/HCC) (Primary Dx) 07/04/2025 External Device Data STL ABSTRACTION Provider, Abstract 07/04/2025 External Device Data STL ABSTRACTION Provider, Abstract 07/04/2025 Orders Only [facility] Oncology and Hematology - Maulik [address] [place] [address] Jose Reynolds MD 07/03/2025 Orders Only [facility] Oncology and Hematology - Maulik [address] [place] [address] Jose Reynolds MD Rectal cancer (CMS/HCC) 06/29/2025 Orders Only [facility] Oncology and Hematology - Maulik Carlos [address] [place] [address] Jose Reynolds MD 06/26/2025 Orders Only [facility] Oncology and Hematology - Maulik [address] [place] [address] Judy Gramajo MD 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 (CMS/HCC) 06/20/2025 8:45 AM CDT Office Visit [facility] Oncology and Hematology [facility] [address] [place] [address] Jose Reynolds MD Rectal cancer (CMS/HCC) (Primary Dx) 06/20/2025 Orders Only [facility] Oncology and Hematology - Maize [address] [place] [address] Jose Reynolds MD 06/19/2025 Orders Only [facility] Oncology and Hematology [facility] [address] [place] [address] Jose Reynolds MD Rectal cancer (CMS/HCC) 06/15/2025 Refill [facility] Oncology and Hematology [facility] [address] [place] [address] Jose Reynolds MD 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 (CMS/HCC) 06/12/2025 Refill [facility] Oncology and Hematology [facility] Thais [address] [place] [address] Aura Mora RN Rectal cancer (CMS/HCC) 06/12/2025 Orders Only [facility] Oncology and Hematology [facility] [address] [place] [address] Judy Gramajo MD 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 (CMS/HCC) 06/09/2025 Telephone [facility] Urology at the [facility] [address] [place] [address] Michael Torres MD Lab Results 06/08/2025 Abstract [facility] Oncology and Hematology [facility] [address] [place] [address] Jose Reynolds MD 06/07/2025 1:04 PM CDT - 06/07/2025 11:59 PM CDT Hospital Encounter [facility] [address] [place] [address] [place] [address] Michael Torres MD Discharge Disposition: Home or Self Care 06/07/2025 External Device Data STL ABSTRACTION Provider, Abstract 06/06/2025 8:45 AM CDT Office Visit [facility] Oncology and Hematology - Maize Carlos [address] [place] [phone] Jose Reynolds MD Rectal cancer ([facility]/HCC) (Primary Dx) 06/06/2025 Orders Only [facility] Oncology and Hematology [facility] Carlos [address] [place] [address] Jose Reynolds MD 06/05/2025 Orders Only [facility] Oncology and Hematology - Maulik [address] [place] [address] Jose Reynolds MD Rectal cancer ([facility]/HCC) 05/30/2025 External Device Data STL ABSTRACTION Provider, Abstract 05/29/2025 Orders Only [facility] Oncology and Hematology [facility] Carlos [address] [place] [address] Judy Gramajo MD 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 (CMS/HCC) 05/25/2025 Orders Only [facility] Oncology and Hematology - Maulik Carlos [address] [place] [address] Jose Reynolds MD 05/22/2025 1:45 PM CDT Office Visit [facility] Surgical Spec [place] [address] [place] [address] Shannan Soler MD Rectal cancer ([facility]/HCC) (Primary Dx) 05/22/2025 Orders Only [facility] Oncology and Hematology - Maulik Carlos [address] [place] [address] Jose Reynolds MD Rectal cancer (CMS/HCC) 05/18/2025 External Device Data STL ABSTRACTION Provider, Abstract 05/18/2025 Refill [facility] Oncology and Hematology [facility] [address] [place] [address] Jose Reynolds MD 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 (CMS/HCC) 05/16/2025 9:45 AM CDT Office Visit [facility] Oncology and Hematology - Maize Carlos [address] [place] [address] Jose Reynolds MD 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 (CMS/HCC) (Primary Dx) 05/15/2025 Orders Only [facility] Oncology and Hematology - Maulik Carlos [address] [place] [address] Judy Gramajo MD 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 (CMS/HCC) 05/12/2025 Orders Only [facility] Oncology and Hematology [facility] Carlos [address] [place] [address] Jose Reynolds MD 05/09/2025 Refill [facility] Oncology and Hematology [facility] [address] [place] [address] Jose Reynolds MD Rectal cancer (CMS/HCC) 05/08/2025 Orders Only [facility] Oncology and Hematology - Maulik Carlos [address] [place] [address] Jose Reynolds MD Rectal cancer ([facility]/HCC) 05/01/2025 Orders Only [facility] Oncology and Hematology - Maulik Carlos [address] [place] [address] Judy Gramajo MD 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 (CMS/HCC) 04/27/2025 Orders Only [facility] at [facility] [address] [place] [address] Michael Torres MD Hydronephrosis of left kidney (Primary Dx) 04/26/2025 12:10 PM CDT - 04/26/2025 12:53 PM CDT Surgery [facility] Operating Room [address] [place] [address] Michael Torres MD PYELOGRAM RETROGRADE 04/26/2025 12:01 PM CDT Anesthesia Event [facility] Operating Room [address] [place] [address] Myke Bland MD Adams, Malissa L, AA-Angelique 04/26/2025 9:52 AM CDT - 04/26/2025 2:42 PM CDT Hospital Encounter [facility] Amb[facility] Surgery Ctr S [facility] [address] [place] [address] Michael Torres MD Other hydronephrosis Discharge Disposition: Home or Self Care 04/24/2025 Orders Only [facility]rology at [facility] [address] [place] [address] Michael Torres MD 04/24/2025 Orders Only [facility] Oncology and Hematology [facility] [address] [place] [address] Jose Reynolds MD Rectal cancer (CMS/HCC) [...] drink = 0.6 oz pur e alcohol) [facility] [employer] Answer Date Recorded In the past 12 months has [employer], gas, oil, or water [employer] threatened to shut off services in your [...] often do you attend chur ch or cheondoism services? Never 07/05/2024 Do you belong to any clubs o r organizations such as latter-day groups, unions, fraternal or athletic groups, or [...] any time in the past 12 m [facility], were you homeless or living in a residential (including now)? No 07/05/2024 Feeling Safe Answer [...] Sign Reading Time Taken Comments Blood Pressure 144/99 07/18/2025 8:40 AM CDT no bp meds this morning Pulse 81 07/18/2025 8:38 AM CDT Temperature 36.8 C (98.2 F) 07/18/2025 8:38 AM CDT Respiratory Rate 16 07/18/2025 8:38 AM CDT Oxygen Saturation 95% 07/18/2025 8:3 8 AM CDT Inhaled Oxygen Concentration - - Weight 94.2 kg (207 lb 9.6 oz) 07/18/2025 8:38 AM CDT Height 185.4 cm (6' 1) 05/22/2025 1:18 PM CDT Body Mass Index 27.39 05/22/2025 1:18 PM CDT Plan of Treatment Upcoming Encounters Date Type Department Care Team (Late st Contact Info) Description 07/28/2025 1:00 PM CDT Telephone Check Up [facility] Oncology and Hematology - Maulik [address] [place] [address] Jose Reynolds MD [address] [facility] [address] [place] [address] Health Maintenance Due Date Last Done Comments DTAP/TDAP/TD VACCINES (2 - Tdap) 04/24/2009 04/23/20 09 HPV VACCINES (1 - Risk 3-dos e SCDM series) 2021 INFLUENZA VACCINE (#1) 2025 09/04/2014 HEPATITIS B VACCINES Completed 1994, 1994, 1994 Medical Devices Implanted Type Area Material Spreader Device Identifier Shelf Expiration Date Model / Serial / Lot Barrier Seprafilm 5x6in [id number] - [id number] Implanted:Q ty: 2 on 07/28/2024 by Shannan Soler MD at [facility] Adhesion Barrier N/A: Abdomen [employer] 04/30/2026 [id number] / / [id number] Barrier Seprafilm 5x6in [id number] - [id number] Implanted:Q ty: 1 on 07/28/2024 by Shannan Soler MD at [facility] Adhesion Barrier N/A: Abdomen [employer] 04/06/2026 [id number] / / [id number] Barrier Seprafilm 5x6in [id number] - [id number] Implanted:Q ty: 2 on 07/28/2024 by Shannan Soler MD at [facility] Adhesion Barrier N/A: Pelvis [employer] 05/26/2026 [id number] / / [id number] Port [employer]port Clearvue 8fr Mri [id number] - [id number] Implanted:Q ty: 1 on 09/01/2024 by Shannan Soler MD at [facility] Port Right: Chest BARD JERRY VASC [id number] 01/30/2026 [id number] / / [id number] Description:right IJ Procedures Procedure Name Priority Date/Time Associated Diagnosis Comments COMPREHENSIVE METABOLIC PANEL Routine 07/18/2025 3:06 PM CDT BASIC METABOLIC PANEL Routine 07/18/2025 2:58 PM CDT CBC WITH AUTODIFFERENTIAL Routine 07/18/2025 2:57 PM CDT BASIC METABOLIC PANEL Routine 07/04/2025 12:29 PM CDT COMPREHENSIVE METABOLIC PANEL Routine 07/04/2025 12:[address] CHEST ABDOMEN PELVIS W CONT Routine 06/27/2025 11:06 AM CDT BASIC METABOLIC PANEL Routine 06/20/2025 12:46 PM [...] 04/26/2025 12: 10 PM CDT Other hydronephrosis CA CYSTOURETHROSCOPY W/URETERAL CATHETERIZATION 04/26/2025 12:10 PM CDT Other hydronephrosis CA ANES INSERT SUPRAGLOTTIC AIRWAY Routine 04/26/2025 12:08 AM CDT from Last 3 Months Results * COMPREHENSIVE METABOLIC PANEL (07/18/2025 3:06 PM CDT) Only the most recent of5 resultswithin the time period is included. Blood us Jose Reynolds MD CHEMISTRY ORDERABLES Final Resu lt * BASIC METABOLIC PANEL (07/18/2025 2:58 PM CDT) Only the most recent of4 resultswithin the time period is included. Blood us Jose Reynolds MD CHEMISTRY ORDERABLES Final Resu lt * CBC WITH AUTODIFFERENTIAL (07/18/2025 2:57 PM CDT) Blood us Jose Reynolds MD HEMATOLOGY ORDERABLES Final Res ult * CT CHEST ABDOMEN PELVIS W CONT (06/27/2025 11:06 AM CDT) Anatomical Region Laterality Modality Chest Computed Tomogra phy Jose Reynolds MD CT ORDERABLES Final Result * US RENAL AND BLADDER (06/07/2025 1:58 PM CDT) Anatomical Region Laterality Modality Abdomen Ultrasound 06/07/2025 2:00 PM CDT Impressions 06/07/2025 2:06 PM CDT IMPRESSION: 1. Severe left-sided hydronephrosis. DICTATION LOCATION: Location [address] [place] [address] Narrative 06/07/2025 2:06 PM CDT US RENAL [...] 1. Severe left-sided hydronephrosis. DICTATION LOCATION: Location [address] [place] [address] Michael Torres MD US ORDERABLES Final Result * CBC WITH DIFFERENTIAL (05/23/2025 1:48 PM CDT) Blood Jose Reynolds MD HEMATOLOGY ORDERABLES Final [...] See Reason for Exam. DICTATION LOCATION: Location [address] [place] [address] TECHNIQUE/FINDINGS: Fluoroscopy was provided by the radiology department for another service and fluoroscopic images were obtained over the pelvis for a procedure. I was not present or involved with this procedure. Please see procedure note by the physician/service performing the procedure for details. FLUOROSCOPY TIME / EXPOSURE: 2.23 minutes / 31.48 mGy (evelyn Ames). Procedure Note Jackie Oakes MD - 04/26/2025 PROCEDURE/EXAM(S): XR RETROGRADE PYELOGRM W WO KUB PROVIDED CLINICAL HISTORY/INDICATION: Male of 30 years age. Other - Please see comments. See Reason for Exam. DICTATION LOCATION: Location [address] [place] [address] TECHNIQUE/FINDINGS: Fluoroscopy was provided by the radiology [...] DIAGNOSTIC IMAGING ORDERABLE S Final Result * CA ANES INSERT SUPRAGLOTTIC AIRWAY (04/26/2025 12:08 AM CDT) Narrative Kathleen Ferrer AA-C - 04/26/2025 12:08 AM CDT Kathleen Ferrer AA-C 04/26/2025 12:27 PM Airway Date/Time: 04/26/2025 12:08 AM Location: OR Plan: routine intubation Patient Identity Confirmed by: Verbally with patient and armband Staffing Performed: SINGING TELEGRAM PERFORMER/CAA Authorized by: Myke Bland MD Performed by: [...] Additional Procedure Information: atraumatic and dentition unchanged Myke Bland MD PROCEDURE/MINOR SURGICAL ORDERA BLES Final Result from Last 3 Months Insurance [place] [employer] RX [facility] [employer] PLANS (INTERNAL) [facility] Plans [place] [employer] [place] Advance Directives For more information, please contact: [phone] * Full Code (Latest Code Status on [...]
--- OUTSIDE RECORDS SUMMARY | 2025-07-25 08:27 | XMS_ITS ---
Author Organization [facility] Address [address] [place] [address] Phone Care Team Providers Care Marking Stitcher Name Role Phone Unavailable Primary Care Provider [...]
--- OUTSIDE RECORDS SUMMARY | 2025-07-25 08:27 | XMS_ITS | Encounter Summary ---
Author Organization [facility] Address [address] [place] [address] Care Team Providers Care Armed Custom Protection Officer Name Role Phone Unavailable Primary Care Provider Unavailabl e Reason for Visit * Reason Onset Date Comments Follow-up Small Bowel Obstruction 07/05/2024 Spoke Rayna/ Rosa @ Dr. Mcallister's exchange Encounter Details Date Type Department Care Team (Late st Contact Info) Description 07/05/2024 Telephone [facility] Admitting [address] [place] [address] Leo Zurita MD NO ADDRESS ON FILE Follow-up Small Bowel Obstruction (Spoke W/ Rosa @ Dr. Mcallister's exchange) Social History Tobacco Use Types Packs/Day Years Used Date Smoking Tobacco: Never Smokeless Tobacco: Never Alcohol Use Standard Drinks/Week Comments Not Currently 0 (1 standard drink = 0.6 oz pur e alcohol) [facility] Utilities Answer Date Recorded In the past 12 months has [facility] [employer], gas, oil, or water [employer] threatened to shut off services in your [...] often do you attend chur ch or yazdanism services? Never 07/05/2024 Do you belong to any clubs o r organizations such as evangelical groups, unions, fraternal or athletic groups, or [...] any time in the past 12 m [facility], were you homeless or living in a senior care (including now)? No 07/05/2024 Feeling Safe Answer [...] 07/28/2025 1:00 PM CDT Telephone Check Up [facility] Oncology and Hematology - Maulik [address] [facility] [address] [place] [address] Jose Reynolds MD [address] [facility] [address] [place] [address] documented as of this encounter Visit Diagnoses Not on filedocumented in this encounter Additional Health Concerns Infection Onset Date Last Indicated Resolved Time C Diff Comment:Added from external infection. 05/27/24 Cdiff @ [facility] 07/05/24 05/27/2024 07/05/2024 09/03/2024 1:16 AM C DT R/O GI Pathogen 07/05/2024 07/05/2024 07/05/2024 2 :35 PM CDT documented as of this encounter
--- OUTSIDE RECORDS SUMMARY | 2025-07-25 08:27 | XMS_ITS | Clinical Summary ---
Author Organization [facility] Address [address] [place] [address] Care Team Providers Care Golf Club Head Inspector Name Role Phone Martita Justice NP Primary Care Provider + Martita Justice NP Unavailable [phone] Jose Reynolds MD Unavailable [phone] Jazmin Delgado MD Unavailable Allergies Active Allergy Reactions Criticality Noted Date [...] (50 mg total) by mouth daily Active acyclovir (ZOVIRAX) 200 mg capsule TAKE 2 CAPSULES (400 MG) BY MOUTH 2 TIMES DAILY. 06/15/2025 Active Active Problems Problem Noted Date Diagnosed Date Ileostomy in place 07/11/2025 Rectal cancer 08/24/2024 Cancer Staging:Clinical: cT3, cN2b [...] 04/2024- stricture with pinpoint opening referred to [facility] for ongoing care Flex sig 07/2024- rectal cancer 07/28/2024: completion proctectomy with end ileostomy due to rectal cancer. Encounters Date Type Department Care Team Description 07/20/2025 Orders Only [facility] [place] [place] Pathology Outreach [address] [place] [address] Jazmin Delgado MD 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 (HCC) 07/17/2025 Orders Only [facility] [place] [place] Oncology [address] [facility] [address] [place] [address] Jazmin Delgado MD 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 (HCC) (Primary Dx) 07/11/2025 11:20 AM CDT Office Visit [facility] [place] [place] Gastroenterology [address] [facility] [address] [place] [address] Marat Jordan MD Crohn's disease of both small and large intestine with intestinal obstruction (HCC) (Primary Dx); Rectal cancer (HCC); Nausea and vomiting, unspecified vomiting type; Ileostomy in place (HCC) 06/14/2025 Telephone [facility] [place] [place] Gastroenterology [address] [facility] [address] [place] [phone] Allie Barksdale, JAYANT Calling about patient's ostomy supplies 06/12/2025 Telephone [facility] [place] [place] Gastroenterology [facility] [facility] 12th [place] [address] [place] [address] Ana Maria MarleyMacarena 05/26/2025 Telephone [facility] [place] [place] Gastroenterology [address] [facility] [address] [place] [address] Allie Barksdale, calendering supervisor supplies from Last 3 Months Surgical History [...] Sign Reading Time Taken Comments Blood Pressure 144/100 07/11/2025 11:08 AM CDT Pulse 76 07/11/2025 11:08 AM CDT Temperature 37.3 C (99.1 F) 07/11/2025 11:08 AM CDT Respiratory Rate - - Oxygen Saturation 97% 07/11/2025 11:08 AM CDT Inhaled Oxygen Concentration - - Weight 94.8 kg (209 lb) 07/11/2025 11:08 AM CDT Height 185.4 cm (6' 1) 07/11/2025 11:08 AM CDT Body Mass Index 27.57 07/11/2025 11:08 AM CDT Plan of Treatment Health Maintenance [...] Screening Completed 1994 , 1994, 1994 Insurance [facility] Care Teams Golf Club Head Inspector Relationship Specialty Start Date End Date Martita Justice NP [address] [place] [address] PCP - General Nurse Practitioner 06/19/24 Martita Justice NP [address] [place] [address] Nurse Practitioner 06/19/24 Jose Reynlods MD [address] [address] Referring Physician Hematology 07/11/25 Jazmin Delgado MD [address] [facility] [address] [place] [address] Medical Oncologist/Chief Deputy Coroner Medical Oncology 07/11/25
--- OUTSIDE RECORDS SUMMARY | 2025-07-25 08:27 | XMS_ITS | Clinical Summary ---
Author Organization [facility] Address [address] [place] [address] Care Team Providers Care Emergency Room Rn Name Role Phone Christina Joseph PA-C Primary Care Provider [phone] Source Comments [facility],non-owned Affiliates and Associated Physician Practices is amultiple site organization consisting of ambulatory clinics and hospital sitesin [place], [place], [place] and [place]. This disclosure is being madepursuant to the Care Everywhere program and may not contain all information available regarding this patient. Last updated 18.[facility] [employer] Allergies Active Allergy Reactions Criticality Noted Date [...] care, and heating? Not very hard 05/27/2024 [facility] of Occupat ional Health - Occupational Stress [...] place to sleep or slept in a custodial (including now)? No 05/27/2024 Sex and Gender [...] Last Indicated C DIFF 05/27/2024 05/27/2024 Insurance [facility] Advance Directives * Full Code (Latest Code Status on File) Date Activated Date Inactivated Comments 05/26/2024 8:13 PM 06/02/2024 3:26 PM Care Teams Emergency Room Rn Relationship Specialty Start Date End Date Christina Joseph PA-C [address] [place] [phone] PCP - General Physician Map Plotter 05/26/24
--- OUTSIDE RECORDS SUMMARY | 2025-07-25 08:27 | XMS_ITS | Clinical Summary ---
Author Organization [facility] Address [address] [place] [id number] Care Team Providers Care Dedicated Truck Driver Name Role Phone Reshma Martita Carr NP Primary Care Provider Social History Tobacco Use Types Packs/Day Years Used Date Smoking Tobacco: Never Assessed Sex and Gender Information Value Date Recorded Sex Assigned at Not on file Legal Sex Male 2:40 PM CDT Gender Identity Not on file Sexual Orientation Not on file Plan of Treatment Health Maintenance Due Date Last Done Comments Annual Physical 1997 Hepatitis C 02/09/2012 DTaP, Tdap and Td Vaccines ( 1 - Tdap) 2013 Hepatitis B Vaccines (1 of 3 - 19+ 3-dose series) 2013 HPV Vaccines (1 - 3-dose SCD M series) 2021 COVID-19 Vaccine (1 - 2023-2 5 season) 2025 Meningococcal B Vaccine Aged Out No l [...] complete this topic Insurance [employer] Care Teams Dedicated Truck Driver Relationship Specialty Start Date End Date Martita Justice NP PCP - General NURSE PRACTITIONER 09/01/24
== END 2025-07-25 08:10 | disposition home or self-care (01) ==
PROVIDERS: Visit Provider Internal Medicine Hematology & Oncology
DX: C20 Malignant neoplasm of rectum (principal); C77.5 Secondary and unspecified malignant neoplasm of intrapelvic lymph nodes; N13.2 Hydronephrosis with renal and ureteral calculous obstruction; N26.1 Atrophy of kidney (terminal); Z90.49 Acquired absence of other specified parts of digestive tract
CPT/HCPCS: 78815; A9552